=== PATIENT | male | born 1950 | race Caucasian/White ===

== ENCOUNTER 2020-05-19 15:39 | Inpatient (IN) | payer MEDICARE, OTHER ==
[~2020-05-19] VITALS: Ht 180.3 cm; Wt 103.4 kg
--- NOTE | 2020-05-19 15:42 | NUR ---
PT BIBRA60 FROM THE STREETS, CALLED 911 C/O SHORTNESS OF BREATH WHILE WALKING UNDER THE SUN. PT STATES HX OF COPD. SMOKER. PT WAS ON O2@#2L./MIN UPON ARRIVAL. PLACED ON MONITOR. ALBERT BLAKE.
[2020-05-19] MEDS ORDERED: Magnesium 1GM/D5W 100ML PREMIX 200 ML IV ONE ×2 (15:46→16:03)
--- NOTE | 2020-05-19 15:47 | NUR ---
DR SOTO AT BEDSIDE FOR EVAL.
[2020-05-19] MEDS ORDERED: ALBUTEROL SULFATE INH 18 GM HFA.AER.AD IH PRN (16:00)
[2020-05-19] MEDS ORDERED: methylPREDNISolone SOD SUCC 125 MG/2ML VIAL IV ONE (16:00)
--- NOTE | 2020-05-19 16:00 | NUR ---
IV LINE STARTEED BLOOD DRAWN AND SENT TO LAB.
[2020-05-19] MEDS ORDERED: methylPREDNISolone SOD SUCC 125 MG/2ML VIAL ONE (16:03)
[2020-05-19 16:14] LABS: BASOPHILS % (AUTO) 0.8 % (0.0-2.0); EOSINOPHILS % (AUTO) 2.5 % (0.0-6.0); HEMATOCRIT 37 % (39-51); HEMOGLOBIN 12.2 g/dL (13.5-17.5); LYMPHOCYTES % (AUTO) 19.4 % (20.0-44.0); MEAN CORPUSCULAR HGB CONC 33 g/dl (31.0-36.0); MEAN CORPUSCULAR VOLUME 87 fL (80-96); MONOCYTES # (AUTO) 0.4 /CMM (0.1-1.30); NEUTROPHILS # (AUTO) 3.6 /CMM (1.8-8.9); NEUTROPHILS % (AUTO) 69.3 % (43.0-81.0); PLATELET COUNT (AUTO) 226 /CMM (150-450); RED BLOOD CELL COUNT(AUTO) 4.22 MIL/uL (4.5-6.0); WHITE BLOOD COUNT (AUTO) 5.2 K/uL (4.3-11.0)
[2020-05-19 16:17] LABS: CALCIUM, SERUM 8.4 mg/dL (8.5-10.1); CARBON DIOXIDE 31 mmol/L (21-32); CHLORIDE 96 mmol/L (98-107); CREATININE 0.7 mg/dL (0.6-1.3); GLUCOSE 109 mg/dL (74-106); POTASSIUM 3.8 mmol/L (3.5-5.1); SODIUM SERUM 133 mmol/L (136-145); UREA NITROGEN, BLOOD 13 mg/dL (7-18)
[2020-05-19 16:30] LABS: B-TYPE NATRIURETIC PEPTIDE 1586 PG/ML (0-125)
--- NOTE | 2020-05-19 17:05 | NUR ---
MOVE SHEET SUBMITTED TO ADMITTING AND CALLED FOR TELE BED
--- NOTE | 2020-05-19 17:18 | NUR ---
[facility] CALLED ITS [facility].
[2020-05-19] MEDS ORDERED: DILTIAZEM HCL IV 125 MG in IV D5W 100 ML IV ONE (17:30)
[2020-05-19] MEDS ORDERED: LEVOFLOXACIN 750 MG /D5W 150ML PIGGYBACK IV ONE (17:30)
[2020-05-19] MEDS ORDERED: DILTIAZEM HCL 25 MG IV IVP ONE (17:30)
[2020-05-19] MEDS ORDERED: FUROSEMIDE 40 MG/4 ML VIAL IV ONE (17:30)
[2020-05-19] MEDS ORDERED: ALBUTEROL FS 2.5 MG/3 ML VIAL.NEB NEB ONE (17:30)
[2020-05-19] MEDS ORDERED: IPRATROPIUM NEB FS 0.5 MG/2.5 ML AMPUL.NEB NEB ONE (17:30)
--- NOTE | 2020-05-19 17:41 | NUR ---
GOT BED 106 READY AT 1800
[2020-05-19] MEDS ORDERED: FUROSEMIDE 40 MG/4 ML VIAL ONE (17:45)
[2020-05-19] MEDS ORDERED: LEVOFLOXACIN 750 MG /D5W 150ML 150 ML IV ONE (17:46)
[2020-05-19] MEDS ORDERED: DILTIAZEM HCL 25 MG IV ONE ×2 (17:46→21:31)
[2020-05-19] MEDS ORDERED: ALBUTEROL FS 2.5 MG/0.5 ML VIAL.NEB ONE (17:47)
[2020-05-19] MEDS ORDERED: IPRATROPIUM NEB FS 0.5 MG/2.5 ML AMPUL.NEB ONE (17:47)
[2020-05-19] MEDS ORDERED: ONDANSETRON HCL/PF 4 MG/2 ML VIAL IVP PRN (18:00)
[2020-05-19] MEDS ORDERED: Z GUARD REMEDY 2 OZ OINT TP PRN (18:00)
[2020-05-19] MEDS ORDERED: ZOLPIDEM TARTRATE 5 MG TABLET PO PRN (18:00)
[2020-05-19] MEDS ORDERED: MAG HYDROX/AL HYDROX/SIMETH 30 ML UDC PO PRN (18:00)
--- NOTE | 2020-05-19 18:15 | NUR ---
REPORT GIVEN TO ROSALEE GAMEZ. AWAITIONG TRANSFER TO FLOOR.
--- NOTE | 2020-05-19 18:27 | NUR ---
DR MADE AWARE OF CURRENT VITALS. STATES NO NEED FOR CARDIZEM DRIP AT THIS TIME.
[2020-05-19 18:55] LABS: C-REACTIVE PROTEIN 3.1 mg/dL (0.0-0.9)
[2020-05-19] MEDS ORDERED: DILTIAZEM HCL 50 MG IV IV PRN (19:00)
--- NOTE | 2020-05-19 19:16 | NUR ---
RN NOTE Patient arrived on unit at 1905. Report given to Jian RN at bedside for admitting.
--- NOTE | 2020-05-19 19:20 | NUR ---
1919 PATIENT REFUSES TO GIVE UP HIS STAFF SCIENTIST AND CIGARETTES TO NURSES FOR SAFE KEEP AND VERBALIZED THAT HE WOULD LEAVE THE HOSPITAL IF NOT ALLOWED TO SMOKE. EXPLAINED TO HIM THE RISKS OF HIM SMOKING AND LEAVING THE HOSPITAL AGAINST MEDICAL ADVICE TO NO AVAIL. DR. GARCIA MADE AWARE OF PATIENT'S BEHAVIOR WITH ORDER TO GIVE HIM NICODERM PATCH AND ATIVAN ORDERED. ORDER NOTED AND CARRIED OUT. NEW ORDER EXPLAINED TO PATIENT AND HE UNDERSTOOD. HE ALSO AGREED TO BE SWABBED TO COVID AND BE MOVED TO ISOLATION ROOM 106. CALL LIGHT PLACED WITHIN REACH AND INSTRUCTED PATIENT TO CALL FOR ASSISTANCE. PATIENT BEING MONITORED CLOSELY.
[2020-05-19 20:00] VITALS: BP 142/88
[2020-05-19] MEDS ORDERED: ENOXAPARIN SODIUM 40 MG/0.4 ML DISP.SYRIN SQ SCH (20:00)
[2020-05-19] MEDS: NICOTINE PATCH (21MG) 21 MG PATCH.TD24 TD SCH (20:29)
[2020-05-19] MEDS: methylPREDNISolone SOD SUCC 40 MG/ML VIAL IV SCH (23:04)
[2020-05-20] VITALS: BP 135/76
[2020-05-20] MEDS: LORAZEPAM 0.5 MG TABLET PO PRN (00:29)
--- NOTE | 2020-05-20 00:46 | NUR ---
RN NOTE ENDORSED TO VERA FREEMAN FOR CONTINUATION OF CARE.
--- NOTE | 2020-05-20 01:28 | NUR ---
dina rn notes received pts report to eliud for continuity of care , pts in bed still awake , c/o he cant sleep , ambien 5 mg po given as ordered.will continue to monitor pts.
[2020-05-20 04:00] VITALS: BP 138/82
[2020-05-20] MEDS: methylPREDNISolone SOD SUCC 40 MG/ML VIAL IV SCH ×3 (05:55→17:10)
--- NOTE | 2020-05-20 06:08 | NUR ---
dina rn notes Pts remains on 5liters of o2 via simple mask sating 98% lung sound wheezing, pts noted taking out the o2 most of thetime encourage pts not to disconnect his o2 verbalizes understanding . due meds at am given as ordered , v/s stable afebrile no sob no distress noted ,will endorse to rn day shift for continuity of care.pts still pending covid result. will continue to monitor pts.
[2020-05-20 06:46] LABS: BASOPHILS % (AUTO) 0.1 % (0.0-2.0); EOSINOPHILS % (AUTO) 0.1 % (0.0-6.0); HEMATOCRIT 39 % (39-51); HEMOGLOBIN 12.8 g/dL (13.5-17.5); LYMPHOCYTES # (AUTO) 0.6 /CMM (0.8-4.8); LYMPHOCYTES % (AUTO) 17.5 % (20.0-44.0); MEAN CORPUSCULAR HGB CONC 33 g/dl (31.0-36.0); MEAN CORPUSCULAR VOLUME 87 fL (80-96); MONOCYTES # (AUTO) 0.1 /CMM (0.1-1.30); MONOCYTES % (AUTO) 1.6 % (2.0-12.0); NEUTROPHILS # (AUTO) 2.8 /CMM (1.8-8.9); NEUTROPHILS % (AUTO) 80.7 % (43.0-81.0); PLATELET COUNT (AUTO) 182 /CMM (150-450); RED BLOOD CELL COUNT(AUTO) 4.44 MIL/uL (4.5-6.0); WHITE BLOOD COUNT (AUTO) 3.5 K/uL (4.3-11.0)
[2020-05-20 06:57] LABS: CALCIUM, SERUM 8.3 mg/dL (8.5-10.1); CREATININE 0.6 mg/dL (0.6-1.3); PHOSPHORUS 4.3 mg/dL (2.5-4.9); POTASSIUM 4.2 mmol/L (3.5-5.1)
--- NOTE | 2020-05-20 07:00 | NUR ---
RN FLORENTIN PATIENT ASLEEP BUT EASILY WOKEN , A/O X4 COOPERATIVE WITH CARE. ABLE TO FOLLOW COMMANDS. PATIENT ON EXTERNAL MONITOR 110'S ST, ON SIMPLE MASK 5 L SATURATION > 92 %. PATIENT IS AMBULATORY NOTIFIED PATIENT TO CALL FOR ASSISTANCE FOR PATIENT SAFETY. RFA 20 # INTACT, FLUSHED, NO SIGNS OF INFILTRATION, PATIENT IS ON ISOLATION FOR RULE OUT COVID. PATIENT IS ALLERGIC TO ASPIRIN BED LOCKED LOWEST POSITION CALL LIGHT WITH IN REACH ALL SAFETY MEASURES IMPLEMENTED PER HOSPITAL POLICY.
[2020-05-20 07:15] LABS: MAGNESIUM 1.2 mg/dL (1.8-2.4)
--- NOTE | 2020-05-20 07:20 | NUR ---
SOCIAL SCIENCE PROFESSOR LABORATORY REPORT MAGNESIUM 1.2 REPORT TO
[2020-05-20 08:00] VITALS: BP 132/83
[2020-05-20] MEDS ORDERED: FUROSEMIDE 40 MG/4 ML VIAL IV SCH (09:00)
[2020-05-20] MEDS ORDERED: AMIODARONE 150 MG in IV D5W 100 ML IV ONE (09:30)
[2020-05-20] MEDS ORDERED: D5W IV PRN (09:30)
[2020-05-20] MEDS ORDERED: AMIODARONE IV PRN (09:30)
[2020-05-20] MEDS: FUROSEMIDE 40 MG/4 ML VIAL IV SCH ×3 (09:30→17:11)
[2020-05-20] MEDS ORDERED: IBUP-51 PO (09:57)
[2020-05-20] MEDS ORDERED: LEVOFLOXACIN 500 MG /D5W 100ML 500 MG in PREMIX 1 EA IV SCH ×2 (10:00→18:00)
[2020-05-20] MEDS: Magnesium 1GM/D5W 100ML PREMIX 100 ML IV SCH ×2 (10:36→12:13)
[2020-05-20] MEDS: APIXABAN 5 MG TABLET PO SCH ×2 (10:52→17:12)
[2020-05-20 12:00] VITALS: BP 120/74
--- NOTE | 2020-05-20 12:14 | NUR ---
GRANITE WORKER GAVE LASIK 0900 . PRESCRIBE 0930/ 5200 / 1630. CALLED CONFIRMATION ABOUT ANOTHER LASIK DOSE. SAID TO NON ADMIN FIRST DOES AND CONTINUE
[2020-05-20] MEDS: IPRATROPIUM/ALBUTEROL INHALER IH SCH ×2 (13:52→18:57)
[2020-05-20] MEDS: CEFTRIAXONE 1 G in IV D5W 50 ML IV SCH (14:01)
[2020-05-20] MEDS: AMIODARONE 450 MG in IV D5W 250 ML IV PRN (14:34)
[2020-05-20 16:00] VITALS: BP 141/63
--- NOTE | 2020-05-20 18:53 | NUR ---
KNEE BOLTER 1 PATIENT A/OX 4 NO SIGNIFICANT CHANGE IN PATINT CONDITION NO SOB, NO PAIN, NO ACUTE RESPIRATORY DISTRESS. PATIENT COOPERTIVE WITH CARE. ALL MEDICATIONS GIVEN NEW IV SITE LFA 20 WITH CARDRONE RUNNING AT 33.33 TILL 2022 AND CHANGE TO 16.6 FOR 16 HRS AFTER. BED LOCKED LOWEST POSITION CALL LIGHT WITH IN REACH ALL SAFETY MEASURE IMPLEMENTED PER HOSPITAL POLICY
[2020-05-20 20:00] VITALS: BP 147/69
--- NOTE | 2020-05-20 20:00 | NUR ---
RN OPENING NOTE PT RECEIVED IN BED RESTING COMFORTABLY. PT IS A/A/OX 4. THERE IS NO S/S OF DISTRESS .PT SATING 93% ON RA. PT HAS UNLABORED BREATHING. TELE MONITOR SHOWING SR AND HR IN 90s PT HAS L FA 20 G IV AMIODARONE RUNNING AT 16.6. SAFETY MEASURES IN PLACE BED LOCKED, AT LOWEST POSITION ,CALL LIGHT WITH IN REACH SIDE RAILS UPx2. WILL CONTINUE TO MONITOR.
[2020-05-20] MEDS: NICOTINE PATCH (21MG) 21 MG PATCH.TD24 TD SCH (20:55)
[2020-05-21] VITALS: BP 116/70
[2020-05-21] MEDS: LORAZEPAM 0.5 MG TABLET PO PRN (00:15)
[2020-05-21] MEDS: methylPREDNISolone SOD SUCC 40 MG/ML VIAL IV SCH ×5 (00:15→23:52)
[2020-05-21] MEDS: IPRATROPIUM/ALBUTEROL INHALER IH SCH ×4 (01:07→18:56)
[2020-05-21] MEDS: AMIODARONE 450 MG in IV D5W 250 ML IV PRN (02:28)
[2020-05-21 04:00] VITALS: BP 124/80
--- NOTE | 2020-05-21 06:41 | NUR ---
RN CLOSING NOTE PT REMAINS STABLE DURING MY SHIFT. NO ACUTE CHANGES. WILL ENDORSE TO INCOMING NURSE FOR DEMIAN.
[2020-05-21 07:04] LABS: BASOPHILS % (AUTO) 0.1 % (0.0-2.0); HEMATOCRIT 38 % (39-51); HEMOGLOBIN 12.7 g/dL (13.5-17.5); LYMPHOCYTES # (AUTO) 0.6 /CMM (0.8-4.8); LYMPHOCYTES % (AUTO) 6.4 % (20.0-44.0); MEAN CORPUSCULAR HGB CONC 33 g/dl (31.0-36.0); MEAN CORPUSCULAR VOLUME 87 fL (80-96); MONOCYTES # (AUTO) 0.3 /CMM (0.1-1.30); MONOCYTES % (AUTO) 3.2 % (2.0-12.0); NEUTROPHILS # (AUTO) 9.1 /CMM (1.8-8.9); NEUTROPHILS % (AUTO) 90.3 % (43.0-81.0); PLATELET COUNT (AUTO) 213 /CMM (150-450); RED BLOOD CELL COUNT(AUTO) 4.41 MIL/uL (4.5-6.0)
[2020-05-21 07:09] LABS: ALANINE AMINOTRANSFERASE 36 U/L (12-78); ALBUMIN 3.5 g/dL (3.4-5.0); ALKALINE PHOSPHATASE 60 U/L (46-116); ASPARTATE AMINOTRANSFERASE 28 U/L (15-37); BILIRUBIN,TOTAL 0.4 mg/dL (0.2-1.0); CALCIUM, SERUM 8.7 mg/dL (8.5-10.1); CARBON DIOXIDE 35 mmol/L (21-32); CHLORIDE 86 mmol/L (98-107); CREATININE 0.8 mg/dL (0.6-1.3); GLUCOSE 167 mg/dL (74-106); MAGNESIUM 1.4 mg/dL (1.8-2.4); PHOSPHORUS 3.5 mg/dL (2.5-4.9); POTASSIUM 3.6 mmol/L (3.5-5.1); SODIUM SERUM 125 mmol/L (136-145); UREA NITROGEN, BLOOD 23 mg/dL (7-18)
--- NOTE | 2020-05-21 07:15 | NUR ---
SOCIAL WORKER CLINICAL NOTES PATIENT IN BED A/OX4 AWAKE SITTING IN BED. HR 112. ON DROPLET ISOLATION FOR COVID19 PENDING. IV SITE PATENT AND PATIENT USES URINAL ABLE TO AMBULATE. REMOVES THE O2 MASK AND SATURATING 89% IN ROOM AIR. CALL LIGHT WITHIN REACH BED AT THE LOWEST POSITION LOCKED. WILL CONTINUE TO MONITOR THE PATIENT.
[2020-05-21 07:35] LABS: OSMOLALITY,URINE 416 mOS/kg (340-1090); URINE SODIUM, RANDOM 81 mmol/l (40-220)
[2020-05-21 08:00] VITALS: BP 120/74
[2020-05-21 08:05] LABS: THYROID STIMULATING HORMONE 0.543 uIU/mL (0.358-3.74); URIC ACID 4.4 mg/dL (2.6-7.2)
[2020-05-21] MEDS: APIXABAN 5 MG TABLET PO SCH ×2 (08:41→17:37)
[2020-05-21] MEDS: Magnesium 1GM/D5W 100ML PREMIX 100 ML IV SCH ×4 (10:07→14:17)
--- NOTE | 2020-05-21 10:41 | NUR ---
VAMPER NOTES PATIENT BROTHER CAME TO THE HOSPITAL LOBBY AND RECEIVED PATIENT`S DEBIT CARD PER PATIENT REQUEST.
[2020-05-21] MEDS: FUROSEMIDE 100 MG/10 ML VIAL IV SCH ×3 (10:45→17:37)
[2020-05-21] MEDS: DILTIAZEM HCL CD 240 MG PO SCH (10:47)
[2020-05-21] MEDS: POTASSIUM CHLORIDE 20 MEQ TAB.PRT.SR PO SCH ×3 (10:48→12:00)
[2020-05-21 12:00] VITALS: BP 148/77
[2020-05-21] MEDS: DIGOXIN INJ 0.5 MG/2 ML AMPUL IV SCH ×4 (12:06→23:53)
--- NOTE | 2020-05-21 12:21 | NUR ---
MAIL PROCESSING CLERK NOTES LASIX OBTAINED FROM [facility] AT WRONG TIME AND NOT ADMINISTRATED TO PATIENT , WASTED IN WASTE BIN.
--- NOTE | 2020-05-21 13:10 | NUR ---
RECOVERY ROOM RN NOTES UNABLE TO OBTAIN KDUR FROM [facility]. CALLED PHARMACY AND ASKED TO REDO THE ORDER FOR THE LAST DOSE. WILL ADMINISTER AT 1400.
[2020-05-21] MEDS: CEFTRIAXONE 1 G in IV D5W 50 ML IV SCH (13:14)
[2020-05-21] MEDS ORDERED: POTASSIUM CHLORIDE 20 MEQ TAB.PRT.SR PO SCH (14:00)
[2020-05-21 16:00] VITALS: BP 138/72
--- NOTE | 2020-05-21 18:56 | NUR ---
INVERTER AND CLIPPER NOTES PATIENT IN BED NO SOB OR DISCOMFORT NOTED AT THIS TIME. ALL NEEDS ATTENDED MED ADMINISTRATED. REPORT GIVEN TO POLICE GUARD NURSE FOR DEMIAN.
--- NOTE | 2020-05-21 19:52 | NUR ---
RN OPENING NOTE PT RECEIVED IN BED RESTING COMFORTABLY. PT IS A/A/OX 4. THERE IS NO S/S OF DISTRESS , NO SOB.PT SATING 91% ON RA. PT HAS UNLABORED BREATHING. TELE MONITOR SHOWING SR AND HR IN 90s PT HAS L FA 20 G IV S/L. SAFETY MEASURES IN PLACE BED LOCKED, AT LOWEST POSITION ,CALL LIGHT WITH IN REACH SIDE RAILS UPx2. WILL CONTINUE TO MONITOR.
[2020-05-21] MEDS: MAGNESIUM HYDROXIDE 30 ML UDC PO PRN (19:58)
[2020-05-21 20:00] VITALS: BP 144/79
[2020-05-21] MEDS: NICOTINE PATCH (21MG) 21 MG PATCH.TD24 TD SCH (20:27)
[2020-05-21] MEDS: ACETAMINOPHEN 325 MG TABLET PO PRN (23:22)
[2020-05-22] VITALS (9 sets, daily range): BP systolic 123–155; BP diastolic 68–92
[2020-05-22] MEDS: HYDROCODONE/APAP 5/325MG 1 EACH TABLET PO PRN ×2 (00:48→08:25)
[2020-05-22] MEDS: IPRATROPIUM/ALBUTEROL INHALER IH SCH ×4 (01:01→19:51)
[2020-05-22] MEDS: methylPREDNISolone SOD SUCC 40 MG/ML VIAL IV SCH ×3 (06:01→17:04)
--- NOTE | 2020-05-22 06:31 | NUR ---
RN CLOSING NOTE PT REMAINS STABLE DURING MY SHIFT. VSS. WILL ENDORSE TO INCOMING NURSE FOR DEMIAN.
--- NOTE | 2020-05-22 07:53 | NUR ---
HOSPITAL INSURANCE REPRESENTATIVE OPENING NOTES RECEIVED PT ON BED, ASLEEP YET EASILY AROUSABLE, A/O 4, RESPONSIVE TO STIMULI. RESPIRATION EVEN AND NON LABORED, NOT IN ACUTE RESPIRATORY DISTRESS, ON O2 AT 3LPM VIA N/C SATING 92%. ABD SOFT AND NON DISTENDED WITH ACTIVE BOWEL SOUNDS, WITH URINAL, ADVISED THAT STOOL IS NEEDED, TO CALL NURSE IF BM DONE. SKIN WARM TO TOUCH AND DRY, BLE +1 PITTING EDEMA, INSTRUCTED TO ELEVATE LEGS WHEN LYING ON BACK, PT UNDERSTOOD. PT DENIES PAIN AND DISCOMFORT. IV SITE AT LFA #20 H/L. BED IN LOW LOCKED POSITION, SR X2 UP FOR SAFETY, CALL LIGHT WITHIN REACH. PT ON FLUID RESTRICTION 800 ML/DAY, COORDINATED WITH BEHAVIOR SPECIALIST. COVID 19 NEGATIVE. TELE MONITOR SHOWS CONTROLLED AFIB WITH PVS 98. WILL CONTINUE PLAN OF CARE.
[2020-05-22 08:02] LABS: BASOPHILS % (AUTO) 0.1 % (0.0-2.0); HEMATOCRIT 40 % (39-51); HEMOGLOBIN 13.3 g/dL (13.5-17.5); LYMPHOCYTES # (AUTO) 0.6 /CMM (0.8-4.8); LYMPHOCYTES % (AUTO) 6.2 % (20.0-44.0); MEAN CORPUSCULAR HGB CONC 34 g/dl (31.0-36.0); MEAN CORPUSCULAR VOLUME 86 fL (80-96); MONOCYTES # (AUTO) 0.5 /CMM (0.1-1.30); MONOCYTES % (AUTO) 4.6 % (2.0-12.0); NEUTROPHILS # (AUTO) 9.2 /CMM (1.8-8.9); NEUTROPHILS % (AUTO) 89.1 % (43.0-81.0); PLATELET COUNT (AUTO) 252 /CMM (150-450); RED BLOOD CELL COUNT(AUTO) 4.61 MIL/uL (4.5-6.0); WHITE BLOOD COUNT (AUTO) 10.3 K/uL (4.3-11.0)
[2020-05-22] MEDS: DILTIAZEM HCL CD 240 MG PO SCH (08:20)
[2020-05-22] MEDS: APIXABAN 5 MG TABLET PO SCH ×2 (08:20→17:04)
[2020-05-22 08:22] LABS: ALBUMIN 3.6 g/dL (3.4-5.0); BILIRUBIN,TOTAL 0.6 mg/dL (0.2-1.0); CALCIUM, SERUM 8.4 mg/dL (8.5-10.1); CREATININE 0.8 mg/dL (0.6-1.3); MAGNESIUM 1.9 mg/dL (1.8-2.4); PHOSPHORUS 4.5 mg/dL (2.5-4.9); POTASSIUM 3.7 mmol/L (3.5-5.1); TOTAL PROTEIN, SERUM 8.1 g/dL (6.4-8.2)
[2020-05-22] MEDS: ACETAMINOPHEN 325 MG TABLET PO PRN ×2 (11:26→20:29)
--- NOTE | 2020-05-22 12:20 | NUR ---
BENCH MOLDER NOTES PT IV SITE AT LEFT FA #20 LEAKING, PATENT IN FLUSHING, NO BACK FLOW. ATTEMPTED TO RE-INSERT 3X WITH CHARGE NURSE CHARLENE, FAILED. PAGED DR. GARCIA FOR POSSIBLE MIDLINE. PROSTHETIC ASSISTANT NOTIFIED. WAITING FOR RESPONSE.
[2020-05-22] MEDS: DIGOXIN 0.25 MG TABLET PO SCH (12:24)
--- NOTE | 2020-05-22 12:34 | NUR ---
OK FOR MIDLINE.AWAITS MIDLINE NURSE.
--- NOTE | 2020-05-22 13:25 | NUR ---
BUILDING SPECIALIST NOTES CEFTRIAXONE IV UNABLE TO ADMINISTER YET AT THIS TIME, WAITING FOR MIDLINE INSERTION TO ADMINISTER THE MEDICATION. LFA IV SITE LEAKING AND DISCOMFORT WHEN FLUSHING PER PT. AWARE
--- NOTE | 2020-05-22 15:15 | NUR ---
PEST CONTROLLER NOTES PT WHEELED OUT TO CT SCAN FOR CHEST WITH CONTRAST BY QUE
[2020-05-22] MEDS: CEFTRIAXONE 1 G in IV D5W 50 ML IV SCH (15:19)
[2020-05-22] MEDS ORDERED: IOHEXOL-300 100 ML VIAL IV ONE (15:27)
[2020-05-22] MEDS ORDERED: CT SWABBABLE VALVE TRANS SET 1 EA INFUS.SET MC ONE (15:27)
[2020-05-22] MEDS ORDERED: IV NS 0.9% 250 ML IV ONE (15:28)
--- NOTE | 2020-05-22 15:30 | NUR ---
DOCTOR CHIROPRACTIC NOTES PT CAME BACK FROM CT, NO DEMIAN NOTED, CONTINUE CEFTRIAXONE IV ORDERED. CONTINUE POC
--- NOTE | 2020-05-22 16:40 | NUR ---
THEOLOGY TEACHER NOTES RT MADE AWARE WITH EKG ORDER. TO COME BACK STATED
--- NOTE | 2020-05-22 18:48 | NUR ---
TENTER FRAME BACK TENDER CLOSING NOTES PT AA/OX4, WITH EPISODES OF FORGETFULNESS AND CONFUSION. ON O2 AT 3LPM VIA N/C SATING 88-92%, HOB ELEVATED. NO C/O OF SOB, USE OF ACCESSORY MUSCLES. ABD SOFT AND NON DISTENDED, +ACTIVE BOWEL SOUNDS, NO BM TODAY, PT STATED HE FEELS LIKE HE'LL DO #2 AND WILL WAIT FOR IT, REFUSED STOOL SOFTENER MEDICATION AND WILL GET IT FROM THE NIGHT IF DIDN'T GO IN AM. DENIES PAIN AND DISCOMFORT. SKIN WARM TO TOUCH AND DRY, NO NEW OPEN SKIN BREAKDOWN. IV SITE AT LFA #20 PATENT IN FLUSHING, LEAKING AND LEFT UPPER MIDLINE #18. TELE MONITOR SHOWS AFIB WITH PVC 88. ALL CONCERNS ATTENDED. BED IN LOW LOCKED POSITION, SRX2 UP FOR SAFETY, CALL LIGHT WITHIN REACH. ENDORSED PT CARE TO NEXT SHIFT.
--- NOTE | 2020-05-22 19:15 | NUR ---
RN OPENING NOTES: RECEIVED PT A/OX4, PATIENT A LITTLE CONFUSED BUT VERY COOPERATIVE AND RESPONSIVE. PATIENT IN BED RESTING COMFORTABLY. PATIENT IN NO S/SX OF ACUTE DISTRESS AT THIS TIME. NO SOB NOTED. PATIENT'S BREATHING IS EVEN AND UNLABORED. PATIENT IS ON 3L OF OXYGEN VIA NC ; TOLERATING WELL. PATIENT ON MONITORING READING AFIB HR IS @ 100S. NOTED IV SITE ON L FA #20 AND L UA MIDLINE #18; PATENT IN INTACT,NO S/S OF INFECTION OR INFILTRATION. PATIENT NOTED TO HAVE BLE ON FEET. PATIENT IS AMBULATORY AND HAS URINAL ON THE BEDSIDE. SAFETY MEASURES HAVE BEEN PROVIDED AND IMPLEMENTED. PATIENT BED ALARM IS ON. HEAD OF BED ELEVATED. BED IS LOCKED, IN LOWEST POSITION AND SIDE RAILS UP. CALL LIGHT WITHIN REACH OF THE PATIENT. PROPER PRECAUTIONS IN PLACE. WILL CONTINUE TO MONITOR AND REASSESS FOR ANY CHANGES.
[2020-05-22] MEDS: NICOTINE PATCH (21MG) 21 MG PATCH.TD24 TD SCH (20:16)
[2020-05-22] MEDS: DEMECLOCYCLINE HCL 150 MG TABLET PO SCH (20:29)
[2020-05-23] VITALS (8 sets, daily range): BP systolic 121–140; BP diastolic 62–76
[2020-05-23] MEDS: methylPREDNISolone SOD SUCC 40 MG/ML VIAL IV SCH ×2 (00:21→06:22)
[2020-05-23] MEDS: IPRATROPIUM/ALBUTEROL INHALER IH SCH ×4 (01:00→19:44)
--- NOTE | 2020-05-23 06:18 | NUR ---
RN CLOSING NOTE: PATIENT REMAINS IN ROOM. NO SIGNS OF RESPIRATORY DISTRESS. SAFETY MEASURES IMPLEMENTED, BED IN LOWEST POSITION, LOCKED, SIDE RAILS UP, CALL LIGHT WITHIN REACH. ALL NEEDS AND ORDERS ADDRESSED DURING THE SHIFT. ALL DUE MEDS GIVEN ORDERED & SCHEDULED ; PATIENT TOLERATED WELL.PATIENT KEPT CLEAN AND COMFORTABLE WITHIN THE SHIFT. ENDORSED TO INCOMING SHIFT RN FOR CONTINUITY OF CARE.
[2020-05-23 07:43] LABS: CALCIUM, SERUM 8.3 mg/dL (8.5-10.1); CREATININE 0.6 mg/dL (0.6-1.3); MAGNESIUM 1.8 mg/dL (1.8-2.4); PHOSPHORUS 3.4 mg/dL (2.5-4.9); POTASSIUM 4.5 mmol/L (3.5-5.1)
--- NOTE | 2020-05-23 07:52 | NUR ---
RN OPENING NOTE PATIENT RECEIVED IN BED RESTING. PT IS A/A/O X4. PT IS ON 2 L O2 VIA NC SATING 97%. PT IS AFIB .PT IS AMBULATORY WITH CANE. PATIENT HAS URINAL. YELLOW, URINE. PT HAS L AC 18 G AND R AC 18 MIDLINE G S/L. SAFETY MEASURES IN PLACE BED AT LOWEST POSITION AND LOCKED, CALL LIGHT WITH IN REACH, SIDE RAILS UPX2, BED ALARM IS ON. WILL CONTINUE TO MONITOR.
[2020-05-23 08:00] LABS: URIC ACID 4.6 mg/dL (2.6-7.2)
[2020-05-23] MEDS: DEMECLOCYCLINE HCL 150 MG TABLET PO SCH ×2 (08:36→20:22)
[2020-05-23] MEDS: DILTIAZEM HCL CD 240 MG PO SCH (08:37)
[2020-05-23] MEDS: APIXABAN 5 MG TABLET PO SCH ×2 (08:40→16:36)
[2020-05-23] MEDS: HYDROCODONE/APAP 5/325MG 1 EACH TABLET PO PRN (08:41)
[2020-05-23] MEDS: CEFTRIAXONE 1 G in IV D5W 50 ML IV SCH (13:12)
[2020-05-23] MEDS: DIGOXIN 0.25 MG TABLET PO SCH (13:53)
--- NOTE | 2020-05-23 18:26 | NUR ---
FLORENTIN RN NOTES PT DOESNT WANT TO GIVE HIS CELL PHONE TO THE BROTHER.
--- NOTE | 2020-05-23 18:26 | NUR ---
FLORENTIN RN NOTES HOLD ELIQUIS BUT HE CAN CONTINUE TO EAT. WILL HAVE PROCEDURE IN 2 DAYS.CONSENT FORMED SIGNED
--- NOTE | 2020-05-23 18:27 | NUR ---
RN CLOSING NOTE PATIENT RESTING IN BED RESTING. PT IS A/A/O X4. PT IS ON 2 L O2 VIA NC SATING 91%. PT IS AFIB .PT IS AMBULATORY WITH CANE. PATIENT HAS URINAL. YELLOW, URINE. PT HAS L AC 18 G AND R AC 18 MIDLINE G S/L. SAFETY MEASURES IN PLACE BED AT LOWEST POSITION AND LOCKED, CALL LIGHT WITH IN REACH, SIDE RAILS UPX2, BED ALARM IS ON. WILL ENDORSE TO WOODEN FURNITURE POLISHER FOR DEMIAN.
--- NOTE | 2020-05-23 19:15 | NUR ---
RN OPENING NOTES: RECEIVED PT A/OX4, PATIENT COOPERATIVE AND RESPONSIVE. PATIENT IN BED RESTING COMFORTABLY. PATIENT IN NO S/SX OF ACUTE DISTRESS AT THIS TIME. NO SOB NOTED. PATIENT'S BREATHING IS EVEN AND UNLABORED. PATIENT IS ON 3L OF OXYGEN VIA NC ; TOLERATING WELL. PATIENT ON MONITORING READING AFIB HR IS @ 100. NOTED IV SITE ON L UA MIDLINE #18; PATENT IN INTACT,NO S/S OF INFECTION OR INFILTRATION. PATIENT NOTED TO HAVE BLE ON FEET. PATIENT IS AMBULATORY USING A CANE AND HAS URINAL @ BEDSIDE. PT ON CARDIAC DIET. SAFETY MEASURES HAVE BEEN PROVIDED AND IMPLEMENTED. PATIENT BED ALARM IS ON. HEAD OF BED ELEVATED. BED IS LOCKED, IN LOWEST POSITION AND SIDE RAILS UP. CALL LIGHT WITHIN REACH OF THE PATIENT. PROPER PRECAUTIONS IN PLACE. WILL CONTINUE TO MONITOR AND REASSESS FOR ANY CHANGES.
[2020-05-23] MEDS: NICOTINE PATCH (21MG) 21 MG PATCH.TD24 TD SCH (20:19)
[2020-05-24] VITALS (9 sets, daily range): BP systolic 115–155; BP diastolic 59–93
[2020-05-24] MEDS: IPRATROPIUM/ALBUTEROL INHALER IH SCH ×4 (00:11→20:14)
--- NOTE | 2020-05-24 07:30 | NUR ---
RN NOTE: Received patient sitting by edge of bed. Awake, alert and oriented 4. Appears relaxed and comfortable. Currently on room air and tolerating well. No SOB and no resp. distress noted on patient. Saturation noted @ >92%. No pain noted nor reported by patient. Able to make needs known. IV site clean, dry, patent and intact. Reported to able ambulatory without assist and with hx of A. fib. call light in reach. Bed locked, low and at semi-malone's position. Side rails up x2. Safety ensured and observed. Will continue to monitor.
[2020-05-24] MEDS: predniSONE 20 MG TABLET PO SCH (08:30)
[2020-05-24] MEDS: DILTIAZEM HCL CD 240 MG PO SCH (08:31)
[2020-05-24] MEDS: DEMECLOCYCLINE HCL 150 MG TABLET PO SCH ×2 (08:33→20:11)
[2020-05-24] MEDS: APIXABAN 5 MG TABLET PO SCH ×2 (08:36→16:50)
[2020-05-24] MEDS: HYDROCODONE/APAP 5/325MG 1 EACH TABLET PO PRN ×2 (08:41→19:34)
--- NOTE | 2020-05-24 09:15 | NUR ---
RN note: Transferred to room 206 with VERA Hui receiving report. Arrived in stable condition. All belongings with patient. Endorsed to RN about patient asking for something to help with Bowel Movement, she will inform MD.
--- NOTE | 2020-05-24 09:20 | NUR ---
M/S RN NOTES PATIENT RECEIVED ALERT AND ORIENTED X4, NO RESPIRATORY DISTRESS, NO C/O PAIN AT THIS TIME. REPORT GIVEN FROM VERA YANG. PATIENT'S SKIN WARM TO TOUCH, IV ACCESS SITE INTACT AND PATENT. PATIENT'S NEEDS ATTENDED, BED ON LOWEST LOCKED POSITION, CALL LIGHT WITHIN REACH. WILL CONTINUE TO MONITOR. Addendum: 05/24/20 at 1554 by JACK GRIGGS RN ERROR ON ABOVE NOTES, NO IV ACCESS WHEN RECEIVED.
[2020-05-24] MEDS: MAGNESIUM HYDROXIDE 30 ML UDC PO PRN (09:42)
--- NOTE | 2020-05-24 10:35 | NUR ---
SW CONSULT: Structural Steel Shop Supervisor conducted a group social worker consult to address the pt's homeless status, assess pt's discharge plan, and offer resources. Pt reported he is currently homeless and lives in the "[facility]" with his brother in their tent, which is "all set up." Pt reported he has been homeless since 2002 and plans to return to his tent with his brother upon hospital discharge. Pt reported him and his brother are allegedly "getting into housing" as of 05/26, but would not elaborate on how they are planning to do this. MARLENE assessed for pt's additional resource linkages, but pt reported he was "fine" and would not elaborate on it. Pt reported he receives food stamps and SSI benefits, which he utilizes to buy food regularly. Pt denied any use of drugs or alcohol. Pt denied suicidal or homicidal ideation, but reported he felt like "hurting himself" 40+ years ago, which in turn led to a psychiatric hospitalization in [place]. Pt denied any psychiatric diagnosis or history of treatment. MARLENE provided the pt with a Homeless Resources Related to COVID-19 list, and additional resources in the [facility] area. Pt signed the Homeless Waiver Form; filled in his chart. MARLENE endorsed aforementioned information to pt's RN, [place]. Rail Manager to be available for support as needed.
[2020-05-24 11:05] LABS: CALCIUM, SERUM 9.3 mg/dL (8.5-10.1); CREATININE 0.7 mg/dL (0.6-1.3); POTASSIUM 4.3 mmol/L (3.5-5.1)
[2020-05-24] MEDS: CEFTRIAXONE 1 G in IV D5W 50 ML IV SCH (12:12)
[2020-05-24] MEDS: DIGOXIN 0.25 MG TABLET PO SCH (14:00)
--- NOTE | 2020-05-24 19:30 | NUR ---
MS RN OPENING NOTES RECEIVED PATIENT FROM MORNING SHIFT, ALERT AND ORIENTED X 2-3. VERBALLY RESPONSIVE AND ABLE TO FOLLOW DIRECTIONS. BREATHING REGULAR AND UNLABORED ON OXYGEN AT 3L/MIN VIA NASAL CANNULA. LEFT HAND G24 IV LINE INTACT AND PATENT, FLUSHING WELL WITH NO BLEEDING OR S/S OF INFILTRATION NOTED. DENIES SUICIDAL IDEATION AT THIS TIME. COMPLAINED OF 5/10 GENERALIZED PAIN, NON-PHARMACOLOGICAL INTERVENTIONS PROVIDED. BED LOW AND LOCKED ON SEMI FOWLERS POSITION. CALL LIGHT IN REACH. WILL CONTINUE TO MONITOR.
[2020-05-24] MEDS: NICOTINE PATCH (21MG) 21 MG PATCH.TD24 TD SCH (19:34)
--- NOTE | 2020-05-24 19:40 | NUR ---
MS RN NOTES COMPLAINED OF 5/10 GENERALIZED PAIN, NORCO 5/325 GIVEN BY MOUTH. NON-PHARMACOLOGICAL INTERVENTIONS PROVIDED. VITAL SIGNS WNL. WILL CONTINUE TO MONITOR.
[2020-05-25] MEDS: IPRATROPIUM/ALBUTEROL INHALER IH SCH ×4 (01:03→19:19)
--- NOTE | 2020-05-25 06:25 | NUR ---
MS RN CLOSING NOTES PATIENT IN BED ALERT AND ORIENTED X 2-3. AFEBRILE WITH NO S/S OF DISTRESS OBSERVED. LEFT HAND G24 IV LINE PATENT AND FLUSHING WELL. ON NOTHING BY MOUTH SINCE MIDNIGHT. NO COMPLAINTS OF PAIN/DISCOMFORT REPORTED AT THIS TIME. BED LOW AND LOCKED ON SEMI FOWLERS POSITION. CALL LIGHT IN REACH. WILL ENDORSE TO MORNING SHIFT FOR DEMIAN.
[2020-05-25 07:37] LABS: BASOPHILS % (AUTO) 0.2 % (0.0-2.0); EOSINOPHILS % (AUTO) 0.3 % (0.0-6.0); HEMATOCRIT 41 % (39-51); HEMOGLOBIN 13.4 g/dL (13.5-17.5); LYMPHOCYTES # (AUTO) 1.5 /CMM (0.8-4.8); LYMPHOCYTES % (AUTO) 13.5 % (20.0-44.0); MEAN CORPUSCULAR HGB CONC 32 g/dl (31.0-36.0); MEAN CORPUSCULAR VOLUME 88 fL (80-96); MONOCYTES # (AUTO) 0.8 /CMM (0.1-1.30); MONOCYTES % (AUTO) 7.2 % (2.0-12.0); NEUTROPHILS # (AUTO) 8.8 /CMM (1.8-8.9); NEUTROPHILS % (AUTO) 78.8 % (43.0-81.0); PLATELET COUNT (AUTO) 212 /CMM (150-450); WHITE BLOOD COUNT (AUTO) 11.1 K/uL (4.3-11.0)
[2020-05-25 07:52] LABS: CALCIUM, SERUM 9.2 mg/dL (8.5-10.1); CREATININE 0.7 mg/dL (0.6-1.3); MAGNESIUM 1.7 mg/dL (1.8-2.4); PHOSPHORUS 3.2 mg/dL (2.5-4.9); POTASSIUM 4.2 mmol/L (3.5-5.1)
[2020-05-25 08:00] VITALS: BP_SYST 134; BP_SYST 150; BP_DIAS 58; BP_DIAS 74
--- NOTE | 2020-05-25 08:00 | NUR ---
MS RN OPENING NOTES Received Patient awake and resting in bed. A/O x 3. VS stable with no acute distress. Breathing even and unlabored on room air with no respiratory distress. Denies pain. No signs and symptoms of pain. 24g PIV on left hand clean, intact, patent and flushing well. Safety precautions in place. Bed locked and set to lowest position with side rails x 2 up. All needs rendered at this time. Call light within reach. Will continue to monitor.
[2020-05-25] MEDS ORDERED: ANESTHESIA TRAY IN PYXIS 1 EA TRAY MC ONE (08:38)
[2020-05-25] MEDS: DILTIAZEM HCL CD 240 MG PO SCH (08:58)
[2020-05-25] MEDS: APIXABAN 5 MG TABLET PO SCH ×2 (08:58→16:42)
[2020-05-25] MEDS: predniSONE 20 MG TABLET PO SCH (08:58)
[2020-05-25] MEDS: DEMECLOCYCLINE HCL 150 MG TABLET PO SCH ×2 (08:58→21:34)
[2020-05-25] MEDS: Magnesium 1GM/D5W 100ML PREMIX 100 ML IV SCH ×2 (09:35→11:52)
--- NOTE | 2020-05-25 10:00 | NUR ---
MS RN NOTES Patient taken to OR for bronchoscopy at this time. Patient in stable condition.
--- NOTE | 2020-05-25 10:30 | NUR ---
MS RN NOTES Patient returned from OR at this time. Patient refused bronchoscopy. Patient in stable condition.
[2020-05-25] MEDS ORDERED: Digoxin PO (12:13)
[2020-05-25] MEDS ORDERED: Ipratropium/Albuterol Sulfate IH (12:13)
[2020-05-25] MEDS ORDERED: NICO-677 TD (12:13)
[2020-05-25] MEDS ORDERED: APIX5TAB PO (12:13)
[2020-05-25] MEDS ORDERED: DEME150T13 PO (12:13)
[2020-05-25] MEDS ORDERED: DILT240C88 PO (12:13)
[2020-05-25] MEDS: CEFTRIAXONE 1 G in IV D5W 50 ML IV SCH (12:56)
[2020-05-25] MEDS: DIGOXIN 0.25 MG TABLET PO SCH (14:05)
[2020-05-25 16:00] VITALS: BP 128/78
--- NOTE | 2020-05-25 19:29 | NUR ---
MS RN CLOSING NOTES Patient awake and resting in bed. A/O x 3. VS stable with no acute distress. Breathing even and unlabored on room air with no respiratory distress. Denies pain. No signs and symptoms of pain. 24g PIV on left hand clean, intact, patent and flushing well. Skin assessment pictures taken and placed in chart. Safety precautions in place. Bed locked and set to lowest position with side rails x 2 up. All needs rendered at this time. Call light within reach. Will endorse discharge plan to oncoming shift. Report given to Toni GAMEZ.
--- NOTE | 2020-05-25 19:55 | NUR ---
RN OPENING NOTES RECEIVED REPORT FROM DAYSHIFT VERA PADILLA. FOUND Pt AWAKE, SITTING UP IN BED, WATCHING TV. Pt IS BEING DISCHARGED TONIGHT TO [facility]. AMBULANCE SCHEDULED FOR MANAGER INCOME TAX @AROUND 2014. Pt IS A/OX3, VERBAL, ABLE TO MAKE NEEDS KNOWN. NO S/S OF ACUTE DISTRESS OR SOB NOTED. NO C/O PAIN OR DISCOMFORT AT THIS TIME. PER DAYSHIFT VERA PADILLA, ALL DISCHARGE EXIT CARE AND DOCUMENTATION HAS BEEN DONE AND SIGNED BY Pt, AND REPORT WAS GIVEN TO VERA DIXON AT [facility]. IV ACCESS REMAINS ON [facility] #24G, SL. WILL REMOVE IV ONCE AMBULANCE ARRIVES. SAFETY MEASURES IN PLACE. BED LOW, LOCKED, HOB ELEVATED, SIDE RAILS UP, CALL LIGHT AND BEDSIDE TABLE WITHIN REACH. WILL CONTINUE TO MONITOR Pt's CONDITION AND SAFETY UNTIL AMBULANCE ARRIVES FOR MANAGER INCOME TAX TRANSPORT.
[2020-05-25 20:00] VITALS: BP 128/69
[2020-05-25] MEDS: NICOTINE PATCH (21MG) 21 MG PATCH.TD24 TD SCH (21:34)
[2020-05-25] MEDS: HYDROCODONE/APAP 5/325MG 1 EACH TABLET PO PRN (21:45)
--- NOTE | 2020-05-25 23:02 | NUR ---
RN NOTES CALLED [facility] #: [phone]; TRIP# [id number] PER CALL SAID THAT THEIR ETA WILL BE IN 30-40MIN FROM NOW.
--- NOTE | 2020-05-25 23:25 | NUR ---
RN NOTES SPOKE WITH ZACK FROM [facility]. GAVE UPDATE OF Pt's ETA. INFORMED HER THAT Pt RECEIVED A NEW NICODERM PATCH, WAS GIVEN DECLOMYCIN 300MG PO & NORCO-5 @2969.
--- NOTE | 2020-05-26 00:02 | NUR ---
ACCOUNT EXECUTIVE HEALTHCARE NOTES AMBULANCE HOOP PUNCH AND COILER OPERATOR ARRIVED TO TRANSPORT Pt TO [facility]. REPORT GIVEN TO EMT [place]. IV ACCESS ON LHAND REMOVED. SECURED WITH GAUZE AND TAPE. NO SIGNS OF BLEEDING NOTED. ID BAND REMOVED. VS STABLE. ALL BELONGINGS WITH Pt AT BEDSIDE. Pt SECURED TO AMBULANCE [facility]AF[facility]. Pt LEFT FLOOR WITH NO S/S OF ACUTE DISTRESS OR SOB NOTED.
== END 2020-05-26 00:15 | DRG 291 ==
LOC: ER 15:42 → TELE1 18:51 → TELE-TD 18:54 → TELE1 05-20 09:41 → MEDSG1 05-24 08:06 → MEDSG2 05-24 09:15
PROVIDERS: ADMIT Internal Medicine; ATTEND Student in an Organized Health Care Education/Training Program
PROC: 05HA33Z Insertion of Infusion Device into Left Brachial Vein, Percutaneous Approach (ICD-10-PCS; principal; 2020-05-22)
DX: I11.0 Hypertensive heart disease with heart failure (principal); J15.9 Unspecified bacterial pneumonia; J96.01 Acute respiratory failure with hypoxia; J44.1 Chronic obstructive pulmonary disease with (acute) exacerbation; E22.2 Syndrome of inappropriate secretion of antidiuretic hormone; J44.0 Chronic obstructive pulmonary disease with (acute) lower respiratory infection; I50.33 Acute on chronic diastolic (congestive) heart failure; I48.91 Unspecified atrial fibrillation; E83.42 Hypomagnesemia; D63.8 Anemia in other chronic diseases classified elsewhere; Z68.31 Body mass index [BMI] 31.0-31.9, adult; F17.210 Nicotine dependence, cigarettes, uncomplicated; E78.5 Hyperlipidemia, unspecified; R91.8 Other nonspecific abnormal finding of lung field; E27.9 Disorder of adrenal gland, unspecified
CPT/HCPCS: 36410; 36415; 71045-TC; 71260-TC; 80048-TC; 80053-TC; 82550-TC; 82728-TC; 83540-TC; 83605-TC; 83615-TC; 83735-TC; 83880; 83935-TC; 84100-TC; 84300-TC; 84443-TC; 84484-TC; 84550-TC; 85025-TC; 85378-TC; 86140-TC; 87040-TC; 87081-TC; 93307-TC; A4216; G0378; J0282; J0696; J1160; J1650; J1940; J1956; J2405; J2920; J2930; J3475; J3490; J7030; J7050; J7060; Q9967; U0003-CS

== ENCOUNTER 2020-09-17 10:04 | Inpatient (IN) | payer MEDICARE, OTHER ==
[~2020-09-17] VITALS: Ht 180.3 cm; Wt 99.8 kg
[~2020-09-17 10:04] MED LIST: APIX5TAB PO; DEME150T13 PO; DILT240C88 PO; Digoxin PO; IBUP-51 PO; Ipratropium/Albuterol Sulfate IH; NICO-677 TD
--- NOTE | 2020-09-17 10:10 | NUR ---
BED 5 PT VI FROM [employer]. C/O OF LLQ ABD PAIN 07/04. ON O2 AT 2L/MIN, PT REPORTS THAT HE IS DEPENDENT ON O2 B/C OF HX OF COPD. STATES THAT THE PAIN IS CONSTANT. NO OTHER ASSOCIATED SYMPTOMS. NO REPORTS OF NAUSEA OR VOMITING. PT STATES THAT HIS LAST BM WAS LAST NIGHT. VS CHECKED. AWAITING MD BLAKE.
[2020-09-17] MEDS ORDERED: ONDANSETRON HCL/PF 4 MG/2 ML VIAL ONE (10:34)
[2020-09-17] MEDS ORDERED: MORPHINE SULFATE INJ 2 MG/ML DISP.SYRIN ONE (10:34)
[2020-09-17] MEDS ORDERED: MORPHINE SULFATE INJ 2 MG/ML DISP.SYRIN IV ONE (11:00)
[2020-09-17] MEDS ORDERED: ONDANSETRON HCL/PF 4 MG/2 ML VIAL IVP ONE (11:00)
[2020-09-17] MEDS ORDERED: DILTIAZEM HCL 50 MG IV ONE (11:00)
[2020-09-17] MEDS ORDERED: DILTIAZEM HCL 50 MG IV IV ONE ×2 (11:00→12:00)
[2020-09-17 11:04] LABS: BASOPHILS # (AUTO) 0.1 /CMM (0.0-0.2); BASOPHILS % (AUTO) 0.3 % (0.0-2.0); EOSINOPHILS % (AUTO) 0.4 % (0.0-6.0); HEMATOCRIT 26 % (39-51); HEMOGLOBIN 8.2 g/dL (13.5-17.5); LYMPHOCYTES # (AUTO) 1.4 /CMM (0.8-4.8); LYMPHOCYTES % (AUTO) 5.7 % (20.0-44.0); MEAN CORPUSCULAR HGB CONC 32 g/dl (31.0-36.0); MEAN CORPUSCULAR VOLUME 94 fL (80-96); MONOCYTES # (AUTO) 0.1 /CMM (0.1-1.30); MONOCYTES % (AUTO) 0.3 % (2.0-12.0); NEUTROPHILS # (AUTO) 23.6 /CMM (1.8-8.9); NEUTROPHILS % (AUTO) 93.3 % (43.0-81.0); PLATELET COUNT (AUTO) 150 /CMM (150-450); RED BLOOD CELL COUNT(AUTO) 2.73 MIL/uL (4.5-6.0); WHITE BLOOD COUNT (AUTO) 25.3 K/uL (4.3-11.0)
[2020-09-17 11:13] LABS: APPEARANCE,URINE CLEAR (CLEAR); BILIRUBIN,URINE NEGATIVE (NEGATIVE); BLOOD, URINE SMALL Ery/uL (NEGATIVE); KETONES,URINE NEGATIVE (NEGATIVE); LEUKOCYTE ESTERASE ,URINE NEGATIVE (NEGATIVE); NITRITE, URINE NEGATIVE (NEGATIVE); PROTEIN,URINE 100 mg/dl (NEGATIVE); UGLUCOSE NEGATIVE (NEGATIVE)
[2020-09-17 11:16] LABS: ALBUMIN 2.9 g/dL (3.4-5.0); BILIRUBIN,DIRECT 0.2 mg/dL (0.0-0.2); BILIRUBIN,TOTAL 0.7 mg/dL (0.2-1.0); CALCIUM, SERUM 8.5 mg/dL (8.5-10.1); CREATININE 0.7 mg/dL (0.6-1.3); POTASSIUM 3.9 mmol/L (3.5-5.1); TOTAL PROTEIN, SERUM 7.1 g/dL (6.4-8.2)
[2020-09-17] MEDS ORDERED: ONDA4TAB11 PO (11:16)
[2020-09-17] MEDS ORDERED: MAGN400O6 PO (11:16)
[2020-09-17] MEDS ORDERED: ASCO500C16 PO (11:16)
[2020-09-17] MEDS ORDERED: SACC250C PO (11:16)
[2020-09-17] MEDS ORDERED: MAGN400T8 PO (11:16)
[2020-09-17] MEDS ORDERED: DIGO250T PO (11:16)
[2020-09-17] MEDS ORDERED: SIME80TA15 PO (11:16)
[2020-09-17] MEDS ORDERED: LORA-259 PO (11:16)
[2020-09-17] MEDS ORDERED: TOLV30TA PO (11:16)
[2020-09-17] MEDS ORDERED: HYDR-4384 PO (11:16)
[2020-09-17] MEDS ORDERED: SODI100037 PO (11:16)
[2020-09-17] MEDS ORDERED: IPRA4AER IH (11:16)
[2020-09-17] MEDS ORDERED: BISA-79 PO (11:16)
[2020-09-17] MEDS ORDERED: ZOLP5TAB8 PO (11:17)
[2020-09-17 11:21] LABS: COLOR,URINE YELLOW (YELLOW)
[2020-09-17 11:25] LABS: BACTERIA,URINE None seen /HPF (None Seen); RBC,URINE 0-2 /HPF (0-2); SQUAMOUS EPITHELIAL CELL,UR Few /HPF (None Seen); WBC,URINE NONE SEEN /HPF (0-3)
--- NOTE | 2020-09-17 11:56 | NUR ---
PT TO CT
[2020-09-17] MEDS ORDERED: PIPERACILLIN /TAZOBACTAM 3.375 G in IV D5W 50 ML IV ONE (12:00)
[2020-09-17 12:19] LABS: BAND % (MANUAL) 3 % (0.0-5.0); LYMPHOCYTES % (MANUAL) 5 % (16-48); MONOCYTES % (MANUAL) 5 % (0-11.0); NEUTROPHILS % (MANUAL) 87 (42-76)
--- NOTE | 2020-09-17 12:27 | NUR ---
PT STILL NOTED WITH HR IN THE 130-140S. MD MADE AWARE. NNO AT THIS TIME. CONTINUE TO MONITOR PT PER MD ORDERED
[2020-09-17] MEDS ORDERED: PIPERACILLIN /TAZOBACTAM 3.375 G VIAL IV ONE (12:31)
--- NOTE | 2020-09-17 12:35 | NUR ---
PAGED [facility].
[2020-09-17] MEDS ORDERED: MORPHINE SULFATE INJ 4 MG/ML DISP.SYRIN ONE (12:41)
[2020-09-17] MEDS ORDERED: MORPHINE SULFATE INJ 4 MG/ML DISP.SYRIN IV ONE (13:00)
--- NOTE | 2020-09-17 13:08 | NUR ---
CALLED NURSING SUP FOR TELE BED.
--- NOTE | 2020-09-17 13:41 | NUR ---
Damien gregory in ED - 09/17/20 at 1342 by JOSUÉ NURSING SUP GAVE M/S BED 200.
--- NOTE | 2020-09-17 13:42 | NUR ---
NURSING SUP GAVE TELE BED 200.
[2020-09-17] MEDS ORDERED: ZOLPIDEM TARTRATE 5 MG TABLET PO PRN (14:00)
[2020-09-17] MEDS ORDERED: LORAZEPAM 1 MG TABLET PO PRN (14:00)
[2020-09-17] MEDS ORDERED: ONDANSETRON 4 MG TAB.RAPDIS PO PRN (14:00)
[2020-09-17] MEDS ORDERED: MAG HYDROX/AL HYDROX/SIMETH 30 ML UDC PO PRN (14:00)
[2020-09-17] MEDS ORDERED: ONDANSETRON HCL/PF 4 MG/2 ML VIAL IVP PRN (14:00)
[2020-09-17] MEDS: NICOTINE PATCH (21MG) 21 MG PATCH.TD24 TD SCH (14:00)
[2020-09-17] MEDS ORDERED: DILTIAZEM HCL 25 MG IV IV PRN (14:00)
[2020-09-17] MEDS ORDERED: MAGNESIUM HYDROXIDE 30 ML UDC PO PRN ×2 (14:00)
[2020-09-17] MEDS ORDERED: Z GUARD REMEDY 2 OZ OINT TP PRN (14:00)
[2020-09-17] MEDS ORDERED: SIMETHICONE 80 MG TAB.CHEW PO PRN (14:00)
[2020-09-17 15:00] VITALS: BP 117/76
--- NOTE | 2020-09-17 15:16 | NUR ---
Received patient awake alert and oriented x4 , ambulatory with assistance. Breathing unlabored and even on 2L of oxygen tolerated well. IV line flushing well. Patient stated he had abd pain 8/10. Will administrate pain medication as directed. Skin assessed and intact. On left elbow there is a dry scar and patient refused to take a picture of it. Patient oriented to room , educated to use call light. Safety precautions implemented as well as isolation precautions. Covid test result is pending. Patient placed and TELE monitor and showing A-fib with the HR 108-148, unstable. Will continue to monitor and f/u with plan of care
--- NOTE | 2020-09-17 15:16 | NUR ---
PT TRANSPORTED TO UNIT ON [place] WITH EMT AND RN AT BEDSIDE W/ ACLS PROTOCOL. NAD NOTED.
[2020-09-17] MEDS: DIGOXIN 0.125 MG TABLET PO SCH (16:15)
[2020-09-17] MEDS: SODIUM CHLORIDE 1000 MG TABLET PO SCH (16:15)
[2020-09-17] MEDS ORDERED: APIXABAN 5 MG TABLET PO SCH (17:00)
[2020-09-17] MEDS ORDERED: Medication Not On Formulary EA (Ipratropium/Albuterol Sulfate (Combivent Respimat 20-100 IH SCH (17:00)
[2020-09-17] MEDS ORDERED: DIGOXIN INJ 0.5 MG/2 ML AMPUL IV ONE (19:00)
[2020-09-17] MEDS: IPRATROPIUM NEB FS 0.5 MG/2.5 ML AMPUL.NEB NEB SCH (19:30)
[2020-09-17] MEDS: ALBUTEROL FS 2.5 MG/0.5 ML VIAL.NEB NEB SCH (19:30)
--- NOTE | 2020-09-17 19:30 | NUR ---
Report given radha evans RN. Patient in stable condition
[2020-09-17 20:00] VITALS: BP 125/67
--- NOTE | 2020-09-17 20:56 | NUR ---
RN NOTE PT RECEIVED IN BED A/A/O X3. PT IS ON 2L VIA NC SATING 98%. PT HAS UNLABORED BREATHING, PT ON TELE MONITOR SHOWING AFIB WITH RVR, HR IN 120s. SAFETY MEASURE IN PLACE CALL LIGHT IN REACH, BED AT LOWEST POSITION LOCKED, SIDE RAILS UP X2.
[2020-09-17 22:05] VITALS: BP 128/67
--- NOTE | 2020-09-17 23:28 | NUR ---
RT NOTE HHN TX NOT GIVEN DUE TO PATIENT IS A RULE OUT FOR COVID-19
[2020-09-17] MEDS: MORPHINE SULFATE INJ 2 MG/ML DISP.SYRIN IV PRN (23:37)
[2020-09-18] VITALS: BP_SYST 93; BP_SYST 96; BP_DIAS 50; BP_DIAS 54
[2020-09-18] MEDS: ALBUTEROL FS 2.5 MG/0.5 ML VIAL.NEB NEB SCH ×4 (01:30→20:20)
[2020-09-18] MEDS: IPRATROPIUM NEB FS 0.5 MG/2.5 ML AMPUL.NEB NEB SCH ×4 (01:30→20:20)
[2020-09-18 04:00] VITALS: BP 113/69
[2020-09-18] MEDS: MORPHINE SULFATE INJ 2 MG/ML DISP.SYRIN IV PRN (05:09)
[2020-09-18 06:52] LABS: CALCIUM, SERUM 8.3 mg/dL (8.5-10.1); CREATININE 0.5 mg/dL (0.6-1.3); PHOSPHORUS 3.8 mg/dL (2.5-4.9)
[2020-09-18 07:02] LABS: BASOPHILS % (AUTO) 0.2 % (0.0-2.0); EOSINOPHILS % (AUTO) 0.6 % (0.0-6.0); HEMATOCRIT 25 % (39-51); HEMOGLOBIN 7.8 g/dL (13.5-17.5); LYMPHOCYTES # (AUTO) 1.4 /CMM (0.8-4.8); LYMPHOCYTES % (AUTO) 8.2 % (20.0-44.0); MEAN CORPUSCULAR HGB CONC 31 g/dl (31.0-36.0); MEAN CORPUSCULAR VOLUME 95 fL (80-96); MONOCYTES # (AUTO) 0.1 /CMM (0.1-1.30); MONOCYTES % (AUTO) 0.7 % (2.0-12.0); NEUTROPHILS # (AUTO) 14.9 /CMM (1.8-8.9); NEUTROPHILS % (AUTO) 90.3 % (43.0-81.0); PLATELET COUNT (AUTO) 103 /CMM (150-450); RED BLOOD CELL COUNT(AUTO) 2.64 MIL/uL (4.5-6.0); WHITE BLOOD COUNT (AUTO) 16.5 K/uL (4.3-11.0)
[2020-09-18 07:15] LABS: MAGNESIUM 1.2 mg/dL (1.8-2.4)
--- NOTE | 2020-09-18 07:20 | NUR ---
SMALL ARMS ARTILLERY REPAIRER NOTES PATIENT IN BED ALERT ORIENTED X 3. NO ACUTE DISTRESS NOTED. BREATHING UNLABORED. NO SOB NOTED. IV ACCESS PATENT AND INTACT, NO REDNESS, NO SWELLING NOTED.SAFETY MEASURES IN PLACE. CALL LIGHT WITHIN REACH. WILL CONTINUE TO MONITOR ACCORDINGLY.
--- NOTE | 2020-09-18 07:27 | NUR ---
RN NOTE PT REMAINED STABLE DURING MY SHIFT REPORT GIVEN TO INCOMING SHIFT FOR DEMIAN.
[2020-09-18] MEDS ORDERED: DIGOXIN INJ 0.5 MG/2 ML AMPUL IV ONE (07:30)
[2020-09-18 08:00] VITALS: BP 106/67
[2020-09-18] MEDS: SODIUM CHLORIDE 1000 MG TABLET PO SCH ×3 (08:52→16:14)
[2020-09-18] MEDS: LACTOBACILLUS RHAMNOSUS GG 1 EACH CAP.SPRINK PO SCH (08:53)
[2020-09-18] MEDS: ASCORBIC ACID 500 MG TABLET PO SCH (08:53)
[2020-09-18] MEDS: BISACODYL (5 MG) 5 MG TABLET.DR PO SCH (08:53)
[2020-09-18] MEDS: MAGNESIUM OXIDE 400 MG TABLET PO SCH (08:53)
[2020-09-18 08:54] LABS: IRON, SERUM 203 ug/dl (50-175); TOTAL IRON BINDING CAPACITY 252 ug/dl (250-450)
[2020-09-18] MEDS ORDERED: SAMSCA PO SCH (09:00)
[2020-09-18] MEDS: DILTIAZEM HCL CD 240 MG PO SCH (09:00)
[2020-09-18] MEDS: Magnesium 1GM/D5W 100ML PREMIX 100 ML IV SCH ×2 (09:14→10:43)
[2020-09-18 09:34] LABS: FERRITIN 3378 ng/mL (8-388)
[2020-09-18 12:00] VITALS: BP 115/75
[2020-09-18] MEDS: DIGOXIN 0.125 MG TABLET PO SCH (12:35)
[2020-09-18] MEDS: ACETAMINOPHEN 325 MG TABLET PO PRN ×2 (12:43→19:49)
--- NOTE | 2020-09-18 12:43 | NUR ---
ONLINE EDITOR NOTES PATIENT COMPLAINT OF 3/10 LEFT LOWER BACK PAIN, TYLENOL GIVEN ORDERED.
[2020-09-18] MEDS: NICOTINE PATCH (21MG) 21 MG PATCH.TD24 TD SCH (13:43)
[2020-09-18 16:00] VITALS: BP 114/60
--- NOTE | 2020-09-18 16:45 | NUR ---
ARCHITECTURE FACULTY MEMBER NOTES PATIENT TRANSFER TO [address] [place] [address] IN STABLE CONDITION. REPORT GIVEN SAMM GAMEZ. NO ACUTE DISTRESS NOTED. BREATHING UNLABORED. NO SOB NOTED. IV ACCESS PATIENT AND INTACT, NO REDNESS, NO SWELLING NOTED. NEEDS ATTENDED AND ANTICIPATED. ALL BELONGINGS BROUGHT WITH THE PATIENT. NEEDS ATTENDED AND ANTICIPATED. SAFETY MEASURES IN PLACE
--- NOTE | 2020-09-18 17:17 | NUR ---
TELE/RN NOTES RECEIVED REPORT FROM NEVA GAMEZ, PATIENT IS ALERT AND ORIENTED X 4. DENIES PAIN AT THIS TIME. NO APPARENT RESPIRATORY DISTRESS NOTED. WILL CONTINUE TO MONITOR.
[2020-09-18] MEDS: MORPHINE SULFATE INJ 4 MG/ML DISP.SYRIN IV PRN ×2 (18:00→22:10)
--- NOTE | 2020-09-18 18:43 | NUR ---
TELE/RN CLOSING NOTES PATIENT IS ON BED. AWAKE ALERT AND ORIENTED X4. PATIENT IN NO APPARENT RESPIRATORY DISTRESS NOTED. NO COMPLAINED OF PAIN NOTED AT THIS TIME. TELE MONITOR IN PLACED READING AFIB 90 - 120 BPM. IV ACCESS AT RIGHT HAND # 22 G PATENT AND INTACT. SEEN AND EXAMINED BY MD WITH ORDERS MADE AND CARRIED OUT. ALL DUE MEDICATION WAS GIVEN. SAFETY PRECAUTIONS WAS IN PLACED. BED IN LOWEST POSITION AND LOCKED. SIDERAILS UP X 2. CALL LIGHT WITH IN REACH. SITTER IS ON BEDSIDE. WILL ENDORSED TO CORONER FOR DEMIAN.
--- NOTE | 2020-09-18 19:15 | NUR ---
GAS FITTER HELPER OPENING NOTES: RECEIVED PATIENT IN BED, AWAKE, A/O X4. NO S/S OF DISTRESS NOTED. CALL LIGHT WITHIN REACH. BED ALARM ON. BED IN LOWEST AND LOCKED POSITION. HOB ELEVATED. WITH O2 AT 2L/MIN. NASAL CANNULA. WITH SCD'S-DVT PUMPS ON BOTH LEGS. HOB ELEVATED.
[2020-09-18 20:00] VITALS: BP 128/74
[2020-09-19] VITALS: BP 127/67
[2020-09-19] MEDS: IPRATROPIUM NEB FS 0.5 MG/2.5 ML AMPUL.NEB NEB SCH ×4 (01:56→19:47)
[2020-09-19] MEDS: ALBUTEROL FS 2.5 MG/0.5 ML VIAL.NEB NEB SCH ×4 (01:56→19:47)
[2020-09-19] MEDS: MORPHINE SULFATE INJ 4 MG/ML DISP.SYRIN IV PRN ×2 (02:19→17:16)
[2020-09-19] MEDS: ACETAMINOPHEN 325 MG TABLET PO PRN ×2 (03:32→13:21)
[2020-09-19 03:50] VITALS: BP 116/62
[2020-09-19 04:00] VITALS: BP 116/62
--- NOTE | 2020-09-19 05:31 | NUR ---
CAR JOCKEY CLOSING NOTES: PATIENT IN BED, ASLEEP,EASILY AROUSABLE. NO S/S OF DISTRESS NOTED. CALL LIGHT WITHIN REACH. BED IN LOWEST AND LOCKED P[OSITION. BED ALARM ON. HOB ELEVATED AT ALL TIMES.
--- NOTE | 2020-09-19 07:20 | NUR ---
PATIENT IS ON BED. AWAKE ALERT AND ORIENTED X2. PATIENT IN NO APPARENT RESPIRATORY DISTRESS NOTED. NO COMPLAINED OF PAIN NOTED AT THIS TIME. TELE MONITOR IN PLACED READING AFIB 90 - 120 BPM. IV ACCESS AT RIGHT HAND # 22 G PATENT AND INTACT. SAFETY PRECAUTIONS WAS IN PLACED. BED IN LOWEST POSITION AND LOCKED. SIDERAILS UP X 2. CALL LIGHT WITH IN REACH.
[2020-09-19 07:58] LABS: BASOPHILS % (AUTO) 0.5 % (0.0-2.0); EOSINOPHILS % (AUTO) 1.3 % (0.0-6.0); HEMATOCRIT 24 % (39-51); HEMOGLOBIN 7.9 g/dL (13.5-17.5); LYMPHOCYTES # (AUTO) 1.2 /CMM (0.8-4.8); LYMPHOCYTES % (AUTO) 24.8 % (20.0-44.0); MEAN CORPUSCULAR HGB CONC 32 g/dl (31.0-36.0); MEAN CORPUSCULAR VOLUME 93 fL (80-96); MONOCYTES # (AUTO) 0.1 /CMM (0.1-1.30); MONOCYTES % (AUTO) 2.9 % (2.0-12.0); NEUTROPHILS # (AUTO) 3.3 /CMM (1.8-8.9); NEUTROPHILS % (AUTO) 70.5 % (43.0-81.0); PLATELET COUNT (AUTO) 63 /CMM (150-450); RED BLOOD CELL COUNT(AUTO) 2.62 MIL/uL (4.5-6.0); WHITE BLOOD COUNT (AUTO) 4.7 K/uL (4.3-11.0)
[2020-09-19 08:00] VITALS: BP_SYST 120; BP_SYST 128; BP_DIAS 69; BP_DIAS 74
[2020-09-19] MEDS ORDERED: FUROSEMIDE 40 MG/4 ML VIAL IV ONE (08:00)
[2020-09-19 08:38] LABS: CALCIUM, SERUM 8.5 mg/dL (8.5-10.1); CREATININE 0.5 mg/dL (0.6-1.3); PHOSPHORUS 3.6 mg/dL (2.5-4.9); POTASSIUM 3.8 mmol/L (3.5-5.1)
[2020-09-19] MEDS: HYDROCODONE/APAP 5/325MG TABLET PO PRN ×3 (09:14→22:13)
[2020-09-19] MEDS: MAGNESIUM OXIDE 400 MG TABLET PO SCH (09:14)
[2020-09-19] MEDS: ASCORBIC ACID 500 MG TABLET PO SCH (09:15)
[2020-09-19] MEDS: BISACODYL (5 MG) 5 MG TABLET.DR PO SCH (09:15)
[2020-09-19] MEDS: SODIUM CHLORIDE 1000 MG TABLET PO SCH ×3 (09:15→16:54)
[2020-09-19] MEDS: LACTOBACILLUS RHAMNOSUS GG 1 EACH CAP.SPRINK PO SCH (09:15)
[2020-09-19] MEDS: DILTIAZEM HCL CD 240 MG PO SCH (09:15)
[2020-09-19 10:15] LABS: BAND % (MANUAL) 2 % (0.0-5.0); EOSINOPHILS % (MANUAL) 2 % (0-4); LYMPHOCYTES % (MANUAL) 21 % (16-48); MONOCYTES % (MANUAL) 3 % (0-11.0); NEUTROPHILS % (MANUAL) 72 (42-76)
[2020-09-19 10:58] LABS: MAGNESIUM 1.2 mg/dL (1.8-2.4)
--- NOTE | 2020-09-19 10:58 | NUR ---
RECEIVED CRITICAL MG 1.2 LEVEL FROM PHARMACY. INFORMED MD AWAITING ORDERS.
--- NOTE | 2020-09-19 12:00 | NUR ---
INFORMED RADHA PT IS RETAINING OVER 300ML. UNABLE TO VOID ALL MORNING. ORDERED AVERY CATH PLACEMENT.
[2020-09-19] MEDS: NICOTINE PATCH (21MG) 21 MG PATCH.TD24 TD SCH (14:20)
[2020-09-19] MEDS: DIGOXIN 0.125 MG TABLET PO SCH (14:22)
--- NOTE | 2020-09-19 15:30 | NUR ---
PT REFUSES AVERY. PT STATED "I DON'T WANT IT". EXPLAINED REASON FOR AVERY ORDER AND PT VERBALIZED UNDERSTANDING.
[2020-09-19 16:00] VITALS: BP 104/56
--- NOTE | 2020-09-19 19:30 | NUR ---
PATIENT IS ON BED. ASLEEP BUT AROUSABLE. PATIENT IN NO APPARENT RESPIRATORY DISTRESS NOTED. NO COMPLAINED OF PAIN NOTED AT THIS TIME. TELE MONITOR IN PLACED READING AFIB 90 - 120 BPM. IV ACCESS AT RIGHT FA # 22 G PATENT AND INTACT. SAFETY PRECAUTIONS WAS IN PLACED. BED IN LOWEST POSITION AND LOCKED. SIDERAILS UP X 2. CALL LIGHT WITH IN REACH. ENDORSED TO PM RN FOR CONTINUATION OF CARE.
--- NOTE | 2020-09-19 19:50 | NUR ---
CAROUSEL OPERATOR OPENING NOTES RECEIVED PATIENT IN BED ALERT AND ORIENTED X 3. VERBALLY RESPONSIVE AND ABLE TO FOLLOW DIRECTIONS. BREATHING REGULAR AND UNLABORED ON OXYGEN AT 3L/MIN VIA NASAL CANNULA, LATEST SPO2 94%. RIGHT FOREARM G22 IV LINE INTACT AND PATENT, FLUSHING WELL WITH NO BLEEDING OR S/S OF INFILTRATION NOTED. ON CARDIAC MONITORING WITH ATRIAL FIBRILLATION AT 109bpm. DENIES SUICIDAL IDEATION OR PAIN/DISCOMFORT AT THIS TIME. BED LOW AND LOCKED ON SEMI FOWLERS POSITION. CALL LIGHT IN REACH. WILL CONTINUE TO MONITOR.
[2020-09-19 20:00] VITALS: BP 115/69
--- NOTE | 2020-09-19 22:15 | NUR ---
DOUGH MOLDER HAND NOTES COMPLAINED OF 7/10 GENERALIZED PAIN, "IT'S ALL OVER" PER PATIENT. NORCO 5/325 GIVEN BY MOUTH. NON-PHARMACOLOGICAL INTERVENTIONS PROVIDED. VITAL SIGNS WNL. WILL CONTINUE TO MONITOR.
[2020-09-20] VITALS: BP 102/61
[2020-09-20] MEDS: ALBUTEROL FS 2.5 MG/0.5 ML VIAL.NEB NEB SCH ×4 (01:38→19:36)
[2020-09-20] MEDS: IPRATROPIUM NEB FS 0.5 MG/2.5 ML AMPUL.NEB NEB SCH ×4 (01:38→19:36)
[2020-09-20 04:00] VITALS: BP 120/67
--- NOTE | 2020-09-20 06:40 | NUR ---
CATTLE BROKER CLOSING NOTES PATIENT IN BED ALERT AND ORIENTED X 3. AFEBRILE WITH NO S/S OF DISTRESS OBSERVED, LATEST SPO2 95%. RIGHT FOREARM G22 IV LINE PATENT AND FLUSHING WELL. MAINTAINED ON CARDIAC MONITORING WITH ATRIAL FIBRILLATION AT 112bpm. NO COMPLAINTS OF PAIN/DISCOMFORT AT THIS TIME. BED LOW AND LOCKED ON SEMI FOWLERS POSITION. CALL LIGHT IN REACH. WILL ENDORSE TO MORNING SHIFT FOR DEMIAN.
[2020-09-20 06:55] LABS: EOSINOPHILS % (AUTO) 1.6 % (0.0-6.0); HEMATOCRIT 22 % (39-51); HEMOGLOBIN 7.1 g/dL (13.5-17.5); LYMPHOCYTES # (AUTO) 1.1 /CMM (0.8-4.8); LYMPHOCYTES % (AUTO) 51.6 % (20.0-44.0); MEAN CORPUSCULAR HGB CONC 33 g/dl (31.0-36.0); MEAN CORPUSCULAR VOLUME 92 fL (80-96); MONOCYTES # (AUTO) 0.1 /CMM (0.1-1.30); MONOCYTES % (AUTO) 6.9 % (2.0-12.0); NEUTROPHILS # (AUTO) 0.8 /CMM (1.8-8.9); NEUTROPHILS % (AUTO) 38.9 % (43.0-81.0); RED BLOOD CELL COUNT(AUTO) 2.34 MIL/uL (4.5-6.0); WHITE BLOOD COUNT (AUTO) 2.1 K/uL (4.3-11.0)
[2020-09-20 07:21] LABS: PLATELET COUNT (AUTO) 46 /CMM (150-450)
[2020-09-20 07:40] LABS: CALCIUM, SERUM 8.7 mg/dL (8.5-10.1); CREATININE 0.5 mg/dL (0.6-1.3); POTASSIUM 4.3 mmol/L (3.5-5.1)
--- NOTE | 2020-09-20 07:45 | NUR ---
RN NOTE THE PATIENT IS RECEIVED IN BED. ALERT AND ORIENTED X3. DENIES PAIN. RECEIVING OXYGEN AT 3L/MIN VIA NASAL CANNULA AND DENIES SOB. RESPIRATION REGULAR AND UNLABORED. TELE BOX READING IS [id number]. THE PATIENT IN NO APPARENT DISTRESS. RFA G 22 PATENT AND SALINE LOCKED. BED LOW AND LOCKED. SIDE RAILS UP X3. CALL LIGHT WITHIN REACH. WILL CONTINUE TO MONITOR.
[2020-09-20 08:00] VITALS: BP 105/68
[2020-09-20 08:27] LABS: BAND % (MANUAL) 4 % (0.0-5.0); EOSINOPHILS % (MANUAL) 2 % (0-4); LYMPHOCYTES % (MANUAL) 40 % (16-48); MONOCYTES % (MANUAL) 2 % (0-11.0); NEUTROPHILS % (MANUAL) 52 (42-76)
[2020-09-20] MEDS: DILTIAZEM HCL CD 180 MG PO SCH (09:00)
[2020-09-20] MEDS: ASCORBIC ACID 500 MG TABLET PO SCH (09:55)
[2020-09-20] MEDS: BISACODYL (5 MG) 5 MG TABLET.DR PO SCH (09:55)
[2020-09-20] MEDS: SODIUM CHLORIDE 1000 MG TABLET PO SCH ×3 (09:55→17:57)
[2020-09-20] MEDS: LACTOBACILLUS RHAMNOSUS GG 1 EACH CAP.SPRINK PO SCH (09:55)
[2020-09-20] MEDS: HYDROCODONE/APAP 5/325MG TABLET PO PRN ×2 (09:55→20:02)
[2020-09-20] MEDS: MAGNESIUM OXIDE 400 MG TABLET PO SCH (09:55)
--- NOTE | 2020-09-20 10:28 | NUR ---
RN NOTE STAT CHEST X-RAY POST THORACENTESIS ORDERED PER DR GARCIA.NOTED AND CARRIED OUT.
--- NOTE | 2020-09-20 10:45 | NUR ---
RN NOTE DR GARCIA IS MADE AWARE PATIENT HAVING THORACENTESIS WITH [address] GARCIA ORDERED CULTURE AND GRAM STAIN TO BE DONE WITH FLUID. NOTED AND CARRIED OUT.
[2020-09-20] MEDS: MORPHINE SULFATE INJ 4 MG/ML DISP.SYRIN IV PRN (11:31)
[2020-09-20] MEDS: METOPROLOL TARTRATE 50 MG TABLET PO SCH ×3 (12:00→23:52)
--- NOTE | 2020-09-20 12:59 | NUR ---
RN NOTE DR GARCIA IS MADE AWARE THAT THE PATIENT`S MAGNESIUM LEVEL IS 1.2. PER NO NEW ORDERS BECAUSE THE PATIENT ALREADY HAD MAGNESIUM OXIDE 800 MG PO THIS MORNING.
[2020-09-20] MEDS: DIGOXIN 0.125 MG TABLET PO SCH (13:19)
--- NOTE | 2020-09-20 14:30 | NUR ---
RN NOTE PER DR ARANDA THE PATIENT IS CLEARED FOR DISCHARGE.
[2020-09-20] MEDS: NICOTINE PATCH (21MG) 21 MG PATCH.TD24 TD SCH (15:19)
[2020-09-20 16:00] VITALS: BP 98/58
--- NOTE | 2020-09-20 18:27 | NUR ---
RN THE PATIENT IS ALERT AND ORIENTED X3. DENIES PAIN. PATIENT IS RECEIVING OXYGEN AT 2L/MIN ANSAL CANNULA AND SATURATION IS AT 92%. DENIES SOB. RESPIRATION REGULAR AND UNLABORED. PATIENT IN NO APPARENT DISTRESS. FFA G 22 PATENT AND SALINE LOCKED. BED LOW AND LOCKED. SIDE RIALS UP X3. CALL LIGHT WITHIN REACH. WILL ENDORSE TO COMMUNICATIONS PROJECT LEAD.
--- NOTE | 2020-09-20 19:55 | NUR ---
MS RN OPENING NOTES RECEIVED PATIENT IN BED ALERT AND ORIENTED X 3. VERBALLY RESPONSIVE AND ABLE TO FOLLOW DIRECTIONS. BREATHING REGULAR AND UNLABORED ON OXYGEN AT 3L/MIN VIA NASAL CANNULA, LATEST SPO2 96%. RIGHT FOREARM G22 IV LINE INTACT AND PATENT, FLUSHING WELL WITH NO BLEEDING OR S/S OF INFILTRATION NOTED. S/P THORACENTESIS WITH 1L OUTPUT, NO ACTIVE BLEEDING ON PUNCTURE SITE SEEN. DENIES SUICIDAL IDEATION BUT COMPLAINED OF 9/10 GENERALIZED PAIN. NON-PHARMACOLOGICAL INTERVENTIONS PROVIDED. BED LOW AND LOCKED ON SEMI FOWLERS POSITION. CALL LIGHT IN REACH. WILL CONTINUE TO MONITOR.
[2020-09-20 20:00] VITALS: BP 94/59
--- NOTE | 2020-09-20 20:05 | NUR ---
MS RN NOTES COMPLAINED OF 9/10 GENERALIZED/CHEST PUNCTURE SITE PAIN, NORCO 5/325 GIVEN BY MOUTH. OFFERED MORPHINE BUT PATIENT REQUESTED FOR NORCO INSTEAD. NON-PHARMACOLOGICAL INTERVENTIONS PROVIDED. WILL CONTINUE TO MONITOR.
[2020-09-20 20:40] VITALS: BP 94/59
[2020-09-21] MEDS: ALBUTEROL FS 2.5 MG/0.5 ML VIAL.NEB NEB SCH ×4 (00:25→19:43)
[2020-09-21] MEDS: IPRATROPIUM NEB FS 0.5 MG/2.5 ML AMPUL.NEB NEB SCH ×4 (00:25→19:43)
[2020-09-21] MEDS: METOPROLOL TARTRATE 50 MG TABLET PO SCH ×3 (05:52→17:35)
--- NOTE | 2020-09-21 06:45 | NUR ---
MS RN CLOSING NOTES PATIENT IN BED ALERT AND ORIENTED X 3. AFEBRILE WITH NO S/S OF DISTRESS OBSERVED, LATEST SPO2 95%. RIGHT FOREARM G22 IV LINE PATENT AND FLUSHING WELL. NO COMPLAINTS OF PAIN/DISCOMFORT AT THIS TIME. BED LOW AND LOCKED ON SEMI FOWLERS POSITION. CALL LIGHT IN REACH. WILL ENDORSE TO MORNING SHIFT FOR DEMIAN.
--- NOTE | 2020-09-21 07:46 | NUR ---
MS RN OPENING NOTES BEDSIDE ENDORSEMENT DONE. PATIENT IS RESTING IN BED, ALERT AND ORIENTED X3, ABLE TO MAKE NEEDS KNOWN. HOB ELEVATED. BREATHING EVEN AND UNLABORED, ON O2 AT 3LPM VIA N/C, NO RESPIRATORY DISTRESS. IV LINE ON RIGHT FOREARM #22, INTACT AND PATENT. SAFETY PRECAUTIONS IN PLACE: BED LOCKED AND ON LOWEST POSITION, SR UP X2, CALL LIGHT IN REACH. WILL CONTINUE TO MONITOR.
[2020-09-21 08:00] VITALS: BP 98/57
[2020-09-21 08:10] LABS: BASOPHILS % (AUTO) 0.9 % (0.0-2.0); EOSINOPHILS % (AUTO) 1.5 % (0.0-6.0); HEMATOCRIT 22 % (39-51); HEMOGLOBIN 7.2 g/dL (13.5-17.5); LYMPHOCYTES % (AUTO) 67.4 % (20.0-44.0); MEAN CORPUSCULAR HGB CONC 32 g/dl (31.0-36.0); MEAN CORPUSCULAR VOLUME 93 fL (80-96); MONOCYTES % (AUTO) 12.3 % (2.0-12.0); NEUTROPHILS # (AUTO) 0.3 /CMM (1.8-8.9); NEUTROPHILS % (AUTO) 17.9 % (43.0-81.0); RED BLOOD CELL COUNT(AUTO) 2.41 MIL/uL (4.5-6.0)
[2020-09-21 08:11] LABS: MONOCYTES # (AUTO) 0.2 /CMM (0.1-1.30)
[2020-09-21 08:22] LABS: PLATELET COUNT (AUTO) 35 /CMM (150-450); WHITE BLOOD COUNT (AUTO) 1.5 K/uL (4.3-11.0)
[2020-09-21 08:25] LABS: ALBUMIN 2.5 g/dL (3.4-5.0); BILIRUBIN,TOTAL 0.7 mg/dL (0.2-1.0); CALCIUM, SERUM 8.9 mg/dL (8.5-10.1); CREATININE 0.7 mg/dL (0.6-1.3); PHOSPHORUS 3.4 mg/dL (2.5-4.9); POTASSIUM 4.5 mmol/L (3.5-5.1); TOTAL PROTEIN, SERUM 6.9 g/dL (6.4-8.2)
[2020-09-21] MEDS: LACTOBACILLUS RHAMNOSUS GG 1 EACH CAP.SPRINK PO SCH (08:36)
[2020-09-21] MEDS: ASCORBIC ACID 500 MG TABLET PO SCH (08:36)
[2020-09-21] MEDS: BISACODYL (5 MG) 5 MG TABLET.DR PO SCH (08:36)
[2020-09-21] MEDS: MAGNESIUM OXIDE 400 MG TABLET PO SCH (08:37)
[2020-09-21] MEDS: SODIUM CHLORIDE 1000 MG TABLET PO SCH ×3 (08:39→16:28)
[2020-09-21] MEDS: HYDROCODONE/APAP 5/325MG TABLET PO PRN ×2 (08:41→17:46)
[2020-09-21 08:42] LABS: MAGNESIUM 1.2 mg/dL (1.8-2.4)
[2020-09-21] MEDS: DILTIAZEM HCL CD 180 MG PO SCH (08:46)
--- NOTE | 2020-09-21 09:30 | NUR ---
RN NOTES RECEIVED CALL FROM LAB OF PATIENTS WBC AND PLT COUNT OF 1.5 AND 35, MAG LEVEL OF 1.2. DR. GARCIA MADE AWARE, AND RESPONDED THAT PATIENT IS ON CHEMO; ALSO AWARE THAT PATIENT IS ON MAG OX 800MG, TAKEN TODAY BY PATIENT. PER MD, WILL INFORM DR. AUGUSTINE TO SEE PATIENT.
[2020-09-21 10:20] LABS: EOSINOPHILS % (MANUAL) 1 % (0-4); LYMPHOCYTES % (MANUAL) 71 % (16-48); MONOCYTES % (MANUAL) 12 % (0-11.0); NEUTROPHILS % (MANUAL) 16 (42-76)
[2020-09-21] MEDS ORDERED: Magnesium 1GM/D5W 100ML PREMIX 100 ML IV SCH (11:00)
[2020-09-21] MEDS: Magnesium 1GM/D5W 100ML PREMIX 100 ML IV SCH ×4 (11:42→14:57)
[2020-09-21] MEDS: DIGOXIN 0.125 MG TABLET PO SCH (12:12)
[2020-09-21] MEDS: NICOTINE PATCH (21MG) 21 MG PATCH.TD24 TD SCH (14:05)
--- NOTE | 2020-09-21 14:29 | NUR ---
RN NOTES RECEIVED CALL FROM DR. AUGUSTINE; PER MD, WILL FAX OVER NOTES FROM PREVIOUS MD OF PATIENT.
--- NOTE | 2020-09-21 18:52 | NUR ---
MS RN CLOSING NOTES PATIENT IS RESTING IN BED, ALERT AND ORIENTED X3, ABLE TO MAKE NEEDS KNOWN. HOB ELEVATED. BREATHING EVEN AND UNLABORED, ON O2 AT 3LPM VIA N/C, NO RESPIRATORY DISTRESS. IV LINE ON RIGHT FOREARM #22, INTACT AND PATENT. ALL DUE MEDS GIVEN TODAY. PATIENT KEPT COMFORTABLE. SAFETY PRECAUTIONS MAINTAINED: BED LOCKED AND ON LOWEST POSITION, SR UP X2, CALL LIGHT IN REACH. WILL ENDORSE TO BATTERY CHARGER TESTER RN FOR DEMIAN.
--- NOTE | 2020-09-21 19:39 | NUR ---
MS RN OPENING NOTE: Patient in bed awake, alert, and oriented x3. Patient able to make needs known. Patient breathing on 3L oxygen via nasal canula. No SOB or acute respiratory distress noted. Noted IV access on right forearm, 22 gauge, dressing dry and intact, no redness, or infiltration. Safety precaution is in place, bed is in the lowest level, bed is locked, alarm is on, side rails x2 are up, and call light is within reach. Will continue to monitor.
[2020-09-21 20:00] VITALS: BP 125/67
[2020-09-21 20:21] VITALS: BP 125/67
[2020-09-22 00:20] VITALS: BP 94/59
[2020-09-22 00:52] LABS: D-DIMER 4.24 mg/L(FEU (0.17-0.50)
[2020-09-22] MEDS: IPRATROPIUM NEB FS 0.5 MG/2.5 ML AMPUL.NEB NEB SCH ×3 (01:07→13:42)
[2020-09-22] MEDS: ALBUTEROL FS 2.5 MG/0.5 ML VIAL.NEB NEB SCH ×3 (01:08→13:42)
--- NOTE | 2020-09-22 02:37 | NUR ---
MS RN NOTE: New platelet result is 24. Made Noe YOO, aware. No new order at this time. Will continue to monitor.
[2020-09-22 03:16] VITALS: BP 104/60
[2020-09-22] MEDS: HYDROCODONE/APAP 5/325MG TABLET PO PRN (03:19)
--- NOTE | 2020-09-22 03:20 | NUR ---
MS RN NOTE: Patient complains of abdominal pain and describes pain as aching. Patient rates pain 7 on a 0-10 numerical scale. Administered PRN [place] per MD order. Will continue to monitor.
[2020-09-22 05:12] VITALS: BP 94/57
[2020-09-22] MEDS: METOPROLOL TARTRATE 50 MG TABLET PO SCH ×3 (05:13→11:12)
[2020-09-22 06:37] LABS: BASOPHILS % (AUTO) 0.9 % (0.0-2.0); HEMATOCRIT 23 % (39-51); HEMOGLOBIN 7.5 g/dL (13.5-17.5); LYMPHOCYTES # (AUTO) 1.7 /CMM (0.8-4.8); LYMPHOCYTES % (AUTO) 68.6 % (20.0-44.0); MEAN CORPUSCULAR HGB CONC 32 g/dl (31.0-36.0); MEAN CORPUSCULAR VOLUME 93 fL (80-96); MONOCYTES # (AUTO) 0.4 /CMM (0.1-1.30); NEUTROPHILS # (AUTO) 0.3 /CMM (1.8-8.9); NEUTROPHILS % (AUTO) 13.5 % (43.0-81.0); RED BLOOD CELL COUNT(AUTO) 2.48 MIL/uL (4.5-6.0); WHITE BLOOD COUNT (AUTO) 2.5 K/uL (4.3-11.0)
--- NOTE | 2020-09-22 06:39 | NUR ---
MS RN CLOSING NOTE: Patient sitting on side of bed, awake and alert. All needs met. Patient breathing well with no SOB or respiratory distress. Safety precaution in place, bed is in the lowest level, alarm is on, brakes are on, side rails x2 are up, and call light is within reach. Will endorse to next shift.
--- NOTE | 2020-09-22 06:39 | NUR ---
MS GAMEZ CLOSING NOTE: Patient in sleeping comfortably. All needs met. Patient breathing well with no SOB or respiratory distress. Safety precaution in place, bed is in the lowest level, alarm is on, brakes are on, side rails x2 are up, and call light is within reach. Will endorse to next shift. Addendum: 09/22/20 at 0640 by LORA MACK RN Wrong patient.
[2020-09-22 06:46] LABS: PLATELET COUNT (AUTO) 25 /CMM (150-450)
[2020-09-22 07:06] LABS: CALCIUM, SERUM 9.1 mg/dL (8.5-10.1); CREATININE 0.6 mg/dL (0.6-1.3); MAGNESIUM 1.7 mg/dL (1.8-2.4); POTASSIUM 4.5 mmol/L (3.5-5.1)
--- NOTE | 2020-09-22 07:30 | NUR ---
Patient in bed awake, alert, and oriented x3. Breathing unlabored on 3L oxygen via nasal canula. No SOB or acute respiratory distress noted. Noted IV access on right forearm, 22 g intact and patent flushing well. Safety precaution is in place, bed is in the lowest level, bed is locked, alarm is on, side rails x2 are up, and call light is within reach. Will continue to monitor.
[2020-09-22 08:00] VITALS: BP 101/45
[2020-09-22 08:35] LABS: EOSINOPHILS % (MANUAL) 2 % (0-4); LYMPHOCYTES % (MANUAL) 74 % (16-48); MONOCYTES % (MANUAL) 7 % (0-11.0); NEUTROPHILS % (MANUAL) 17 (42-76)
[2020-09-22] MEDS: LACTOBACILLUS RHAMNOSUS GG 1 EACH CAP.SPRINK PO SCH (08:35)
[2020-09-22] MEDS: ASCORBIC ACID 500 MG TABLET PO SCH (08:36)
[2020-09-22] MEDS: DILTIAZEM HCL CD 180 MG PO SCH (08:36)
[2020-09-22] MEDS: MAGNESIUM OXIDE 400 MG TABLET PO SCH (08:36)
[2020-09-22] MEDS: SODIUM CHLORIDE 1000 MG TABLET PO SCH ×2 (08:36→12:58)
[2020-09-22] MEDS: BISACODYL (5 MG) 5 MG TABLET.DR PO SCH (08:36)
[2020-09-22 11:12] VITALS: BP 105/54
[2020-09-22] MEDS: Magnesium 1GM/D5W 100ML PREMIX 100 ML IV SCH ×2 (11:12→12:23)
[2020-09-22] MEDS: DIGOXIN 0.125 MG TABLET PO SCH (12:58)
[2020-09-22] MEDS: NICOTINE PATCH (21MG) 21 MG PATCH.TD24 TD SCH (14:00)
[2020-09-22] MEDS: MORPHINE SULFATE INJ 4 MG/ML DISP.SYRIN IV PRN (14:56)
--- NOTE | 2020-09-22 15:27 | NUR ---
Patient cleared for d/c by . Patient is alert and oriented x3 , able to make needs known. Breathing unlabored and even on oxygen 3L saturation 95%. Patient d/c home with home health agency [facility]. Patient refused SNF placement. VS are stable HR within baseline. Skin is intact. All needs attended. Patient stated he will f/u with PCP and oncologist outpatient. Education provided , medication list provided. Patient verbalized understanding .Patient denies pain at this time. IV line removed and ID wrist band removed. Patient sighed valuable form and all belongings with the patient. Patient safely picked up by belen
[2020-09-22] MEDS ORDERED: LEVO500T90 PO (16:50)
== END 2020-09-22 16:25 | disposition home health service (06) | DRG 180 ==
LOC: ER 10:31 → TELE2 14:04 → TELE 09-18 16:43 → MED 09-20 11:16
PROVIDERS: ADMIT Internal Medicine; ATTEND Internal Medicine
PROC: 0W993ZZ Drainage of Right Pleural Cavity, Percutaneous Approach (ICD-10-PCS; principal; 2020-09-20)
DX: C34.90 Malignant neoplasm of unspecified part of unspecified bronchus or lung (principal); J96.21 Acute and chronic respiratory failure with hypoxia; E43 Unspecified severe protein-calorie malnutrition; K85.90 Acute pancreatitis without necrosis or infection, unspecified; I50.32 Chronic diastolic (congestive) heart failure; J91.0 Malignant pleural effusion; E22.2 Syndrome of inappropriate secretion of antidiuretic hormone; C79.9 Secondary malignant neoplasm of unspecified site; D61.818 Other pancytopenia; I48.91 Unspecified atrial fibrillation; I11.0 Hypertensive heart disease with heart failure; F17.200 Nicotine dependence, unspecified, uncomplicated; D72.829 Elevated white blood cell count, unspecified; E83.42 Hypomagnesemia; N20.0 Calculus of kidney; K42.9 Umbilical hernia without obstruction or gangrene; J44.9 Chronic obstructive pulmonary disease, unspecified; Z88.0 Allergy status to penicillin; Z79.01 Long term (current) use of anticoagulants; Z79.51 Long term (current) use of inhaled steroids; Z99.81 Dependence on supplemental oxygen; N28.89 Other specified disorders of kidney and ureter; E27.9 Disorder of adrenal gland, unspecified; I05.9 Rheumatic mitral valve disease, unspecified
CPT/HCPCS: 36415; 71045-TC; 80048-TC; 80053-TC; 80076-TC; 80162-TC; 81000-TC; 82728-TC; 83540-TC; 83605-TC; 83690-TC; 83735-TC; 83880; 84100-TC; 85025-TC; 85396; 85610-TC; 87040-TC; 87070-TC; 87081-TC; 89051-TC; 94799-TC; 97110-TC; 97116-TC; 97530-TC; G0378; J1160; J1940; J2270; J2405; J2543; J3475; J3490; J7030; J7060; U0003

== ENCOUNTER 2020-10-19 17:11 | Emergency (ER) | payer MEDICARE, OTHER ==
[~2020-10-19] VITALS: Ht 180.3 cm; Wt 98.0 kg
[~2020-10-19 17:11] MED LIST changes: +ASCO500C17 PO; +BISA-79 PO; -DEME150T13 PO; +DIGO250T PO; -Digoxin PO; +HYDR-4384 PO; -IBUP-51 PO; +IPRA4AER IH; -Ipratropium/Albuterol Sulfate IH; +LEVO500T90 PO; +LORA-259 PO; +MAGN400O6 PO; +MAGN400T8 PO; +ONDA4TAB11 PO; +SACC250C PO; +SIME80TA15 PO; +SODI100037 PO; +TOLV30TA PO; +ZOLP5TAB8 PO
[2020-10-19] MEDS ORDERED: ACETAMINOPHEN 325 MG TABLET PO ONE (18:00)
[2020-10-19] MEDS ORDERED: ACETAMINOPHEN ES 500 MG TABLET ONE (19:10)
[2020-10-19 19:18] VITALS: BP 112/65
--- NOTE | 2020-10-19 19:20 | NUR ---
Patient discharged to home in stable condition. Written and verbal after care instructions given. Patient verbalizes understanding of instruction. Assisted to waiting room via wheelchair where brother is waiting.
== END 2020-10-19 19:20 | disposition home or self-care (01) ==
LOC: ER 17:18
DX: L03.114 Cellulitis of left upper limb (principal); I10 Essential (primary) hypertension; J44.9 Chronic obstructive pulmonary disease, unspecified; Z85.118 Personal history of other malignant neoplasm of bronchus and lung; Z88.6 Allergy status to analgesic agent; Z79.899 Other long term (current) drug therapy; W01.0XXA Fall on same level from slipping, tripping and stumbling without subsequent striking against object, initial encounter; Y93.89 Activity, other specified; Y92.89 Other specified places as the place of occurrence of the external cause; Y99.8 Other external cause status
CPT/HCPCS: 73090-TC

== ENCOUNTER 2020-10-29 00:58 | Inpatient (IN) | payer MEDICARE, OTHER ==
[2020-10-29] VITALS (77 sets, daily range): BP systolic 62–140; BP diastolic 14–99
[~2020-10-29] VITALS: Ht 180.3 cm; Wt 97.5 kg
[2020-10-29] MEDS ORDERED: DILTIAZEM HCL 50 MG IV ONE ×2 (01:08→01:17)
--- NOTE | 2020-10-29 01:09 | NUR ---
PATIENT CAME TO ER BED 5 FROM HOME BIB RA C/O SOB. HX OF COPD. PATIENT IS BREATHING EVENLY AND UNLABORED ON 02 FACE MASK AT 8L AT 100% OXYGEN SATURATION. PATIENT IS AAOX4. CONNECTED TO THE COMPUTER DISCOVERY TEACHER.
[2020-10-29] MEDS ORDERED: DILTIAZEM HCL 50 MG IV IV ONE (01:30)
[2020-10-29] MEDS: DILTIAZEM HCL IV 125 MG in IV NS 0.9% 100 ML IV PRN ×3 (01:41→11:22)
--- NOTE | 2020-10-29 02:04 | NUR ---
move packet given to admitting.
--- NOTE | 2020-10-29 02:11 | NUR ---
BLOOD COLLECTED AND SENT TO THE LAB.
--- NOTE | 2020-10-29 02:12 | NUR ---
XRAY AT BEDSIDE
[2020-10-29 02:33] LABS: BASOPHILS # (AUTO) 0.1 /CMM (0.0-0.2); BASOPHILS % (AUTO) 0.4 % (0.0-2.0); EOSINOPHILS % (AUTO) 0.1 % (0.0-6.0); HEMATOCRIT 21 % (39-51); LYMPHOCYTES % (AUTO) 13.5 % (20.0-44.0); MEAN CORPUSCULAR HGB CONC 32 g/dl (31.0-36.0); MEAN CORPUSCULAR VOLUME 90 fL (80-96); MONOCYTES # (AUTO) 1.6 /CMM (0.1-1.30); MONOCYTES % (AUTO) 10.8 % (2.0-12.0); NEUTROPHILS % (AUTO) 75.2 % (43.0-81.0); RED BLOOD CELL COUNT(AUTO) 2.37 MIL/uL (4.5-6.0); WHITE BLOOD COUNT (AUTO) 14.6 K/uL (4.3-11.0)
[2020-10-29 02:40] LABS: CARBON DIOXIDE 34 mmol/L (21-32); CHLORIDE 94 mmol/L (98-107); CREATININE 0.6 mg/dL (0.6-1.3); GLUCOSE 151 mg/dL (74-106); SODIUM SERUM 137 mmol/L (136-145); UREA NITROGEN, BLOOD 12 mg/dL (7-18)
[2020-10-29 02:46] LABS: POTASSIUM 2.8 mmol/L (3.5-5.1)
[2020-10-29 02:53] LABS: ALANINE AMINOTRANSFERASE 36 U/L (12-78); ALBUMIN 2.6 g/dL (3.4-5.0); ALKALINE PHOSPHATASE 183 U/L (46-116); ASPARTATE AMINOTRANSFERASE 42 U/L (15-37); B-TYPE NATRIURETIC PEPTIDE 2453 PG/ML (0-125); BILIRUBIN,DIRECT 0.4 mg/dL (0.0-0.2); BILIRUBIN,TOTAL 0.7 mg/dL (0.2-1.0); TOTAL PROTEIN, SERUM 7.4 g/dL (6.4-8.2)
[2020-10-29] MEDS ORDERED: POTASSIUM CL. PREMIX PERIPHER. 50 ML ONE (02:59)
[2020-10-29] MEDS ORDERED: CEFTRIAXONE 1GM BAG (ER ONLY) 50 ML IV ONE (02:59)
[2020-10-29] MEDS ORDERED: POTASSIUM CHLORIDE 20 MEQ TAB.PRT.SR PO ONE ×2 (02:59→03:00)
[2020-10-29] MEDS ORDERED: POTASSIUM CHLORIDE 10 MEQ/50 ML PREMIXED IVPB FOR PERIPHERAL LINE IV ONE (03:00)
[2020-10-29] MEDS ORDERED: CEFTRIAXONE 1GM BAG (ER ONLY) 1 GM/50 ML PIGGYBACK IV ONE (03:00)
[2020-10-29] MEDS ORDERED: AZITHROMYCIN 500 MG in IV D5W 250 ML IV ONE (03:00)
--- NOTE | 2020-10-29 03:04 | NUR ---
PATIENT STATES ITCHINESS AT THE SITE OF ROCEPHIN ADMINISTRATION. NO C/O SOB. PATIENT IS AAOX4. NO OBSTRUCTION OF AIRWAY. MD NOTIFIED. WILL CONTINUE TO MONITOR PATIENT CLOSELY.
--- NOTE | 2020-10-29 03:15 | NUR ---
PATIENT IS NOT ITCHY.
[2020-10-29 03:19] LABS: HEMOGLOBIN 6.9 g/dL (13.5-17.5); PLATELET COUNT (AUTO) 32 /CMM (150-450)
[2020-10-29] MEDS ORDERED: AZITHROMYCIN 500 MG VIAL ONE (03:29)
--- NOTE | 2020-10-29 03:29 | NUR ---
called [facility] for panel admission, dr. mancia paged. waiting for call back
--- NOTE | 2020-10-29 03:34 | NUR ---
called rn sup for bed
--- NOTE | 2020-10-29 03:47 | NUR ---
PATIENT PULLED OUT IV LINE AT THE RIGHT WRIST 22G, PRESSURE APPLIED. NO ACTIVE BLEEDING.
[2020-10-29 03:50] LABS: BAND % (MANUAL) 2 % (0.0-5.0); LYMPHOCYTES % (MANUAL) 14 % (16-48); MONOCYTES % (MANUAL) 7 % (0-11.0); NEUTROPHILS % (MANUAL) 77 (42-76)
[2020-10-29] MEDS ORDERED: DILTIAZEM HCL 50 MG IV IV PRN (04:00)
[2020-10-29] MEDS ORDERED: MAG HYDROX/AL HYDROX/SIMETH 30 ML UDC PO PRN (04:00)
[2020-10-29] MEDS ORDERED: ZOLPIDEM TARTRATE 5 MG TABLET PO PRN (04:00)
[2020-10-29] MEDS ORDERED: MAGNESIUM HYDROXIDE 30 ML UDC PO PRN ×2 (04:00)
[2020-10-29] MEDS ORDERED: ACETAMINOPHEN 325 MG TABLET PO PRN (04:00)
[2020-10-29] MEDS ORDERED: Z GUARD REMEDY 2 OZ OINT TP PRN (04:00)
[2020-10-29] MEDS ORDERED: CEFTRIAXONE 1 G in IV D5W 50 ML IV SCH ×2 (04:00→09:00)
[2020-10-29] MEDS ORDERED: HYDROCODONE/APAP 5/325MG TABLET PO PRN (04:00)
[2020-10-29] MEDS ORDERED: SIMETHICONE 80 MG TAB.CHEW PO PRN (04:00)
--- NOTE | 2020-10-29 04:08 | NUR ---
2ND IV (22G) INITIATED ON THE LEFT UPPER ARM.
--- NOTE | 2020-10-29 04:26 | NUR ---
BLOOD CONSENT FORM SIGNED.
[2020-10-29] MEDS ORDERED: NICOTINE PATCH (21MG) 21 MG PATCH.TD24 TD SCH (04:31)
--- NOTE | 2020-10-29 04:32 | NUR ---
REPORT GIVEN TO CHRISTOFER GAMEZ AND ISELA RN FOR DEMIAN.
--- NOTE | 2020-10-29 04:36 | NUR ---
30MEQ OF POTASSIUM CHLORIDE IV ENDORSED TO ED RN AND CHRISTOFER RN IN ICU.
--- NOTE | 2020-10-29 05:00 | NUR ---
BOARD CERTIFIED MUSIC THERAPIST: RECEIVED PT FOR A. FIB WT RVR ON 8L 02 VIA FACE MASK. A/O X3. LABORED BREATHING NOTED. PT IS UNCOOPERATIVE AND KEEPS REMOVING FACE MASK. PT TEACHING DONE WT MINIMAL EFFECT. ON UNCONTROLLED A. FIB ON SPECTRAL SCIENTIST. ON CARDIZEM DRIP AT 10MG/HR. NO S/S OF IV INFILTRATION. AFEBRILE. REFUSED FULL BODY ASSESSMENT (ONLY ON UPPER BODY AND REFUSED TO HAVE PICTURES TAKEN ON THE UPPER BODY SCABS). HOB AT 90 DEGREES. BED IN LOWEST POSITION AND LOCKED, BED ALARM ACTIVATED. CALL LIGHT KEPT WITHIN REACH. WILL CONTINUE TO MONITOR.
[2020-10-29] MEDS ORDERED: DILTIAZEM HCL IV 125 MG in IV NS 0.9% 100 ML IV PRN (05:30)
[2020-10-29] MEDS: POTASSIUM CL. PREMIX PERIPHER. 50 ML IV SCH ×3 (05:56→08:24)
[2020-10-29] MEDS: MORPHINE SULFATE INJ 2 MG/ML DISP.SYRIN IV PRN ×3 (05:58→23:29)
--- NOTE | 2020-10-29 07:00 | NUR ---
TRAINING AND DEVELOPMENT DIRECTOR: STILL A. FIB WT RVR WT HR IN THE 130s. REFUSED LAB DRAW FOR TYPE AND CROSS SCREEN. EXPLAINED RISKS AND BENEFITS. TACO MAKER WILL COME BACK TO DRAW LAB. CONTINUED TO REFUSE FULL BODY ASSESSMENT. 2ND BAG OF 3 KCL RUNNING, CARDIZEM DRIP NOW AT 15MG/HR. ENDORSED TO STACY TO FOLLWO UP TYPE AND CROSS SCREEN, TO GIVE 1 UNIT PRBC, LOWER BODY ASSESSMENT, FLU VACCINE AND FOR CONTINUITY OF CARE.
--- NOTE | 2020-10-29 07:40 | NUR ---
ICU/RN PT IS SITTING ON THE BED ON SIMPLE MASK AT 8L.SAT O2-100%.RT SEEN THE PT SWITCH TO 3L N/C ,SAT O2-99%.V/S STABLE,AFEBRILE. A-FIB WITH RVR .HR-130 BPM.PT IS ON CARDIZEM DRIP.NO PAIN REPORTED AT THIS TIME.PT IS AWAKE,ALERT .GENERALIZED EDEMA PRESENT .PT USE URINAL.PERIFERAL IV.LABS REVIEW.K-2.8.PT IS RECEIVING KCL IV AT THIS TIME.CONTINUE TO MONITOR.
[2020-10-29] MEDS ORDERED: INFLUENZA VACCINE 2020-21 0.5 ML DISP.SYRIN IM ONE (08:00)
[2020-10-29] MEDS: SODIUM CHLORIDE 1000 MG TABLET PO SCH ×3 (08:30→17:00)
[2020-10-29] MEDS: BISACODYL (5 MG) 5 MG TABLET.DR PO SCH (08:30)
[2020-10-29] MEDS: MAGNESIUM OXIDE 400 MG TABLET PO SCH (08:30)
[2020-10-29] MEDS: NICOTINE PATCH (21MG) 21 MG PATCH.TD24 TD SCH (08:30)
[2020-10-29] MEDS: DILTIAZEM HCL CD 240 MG PO SCH (08:33)
[2020-10-29] MEDS ORDERED: APIXABAN 5 MG TABLET PO SCH (09:00)
[2020-10-29] MEDS ORDERED: TOLVAPTAN 30 MG PO SCH (09:00)
[2020-10-29] MEDS ORDERED: DIGOXIN 0.25 MG TABLET PO SCH (09:00)
--- NOTE | 2020-10-29 09:00 | NUR ---
ICU/RN DUE MEDS ARE GIVEN ORDERED.H/H-6.9.WAITING FOR PRBC.
--- NOTE | 2020-10-29 10:37 | NUR ---
RECEIVED REPORT FROM STACY GAMEZ
[2020-10-29 10:38] LABS: ABG BASE EXCESS 2.1 mmol/L; ABG OXYGEN SATURATION 96.2 % (92.0-98.5); ABG PCO2 45.3 mmHg (35.0-45.0); ABG PH 7.397 (7.350-7.450); ABG PO2 88.1 mmHg (75.0-100.0); AaDO2 94.3 mmHg; COHb 0.5 % (0.5-1.5); MetHb 0.2 % (0.0-1.5); O2Hb 95.5 % (94.0-97.0); SITE, ABG Left Radial; VENT MODE, BG NASAL CANNULA
--- NOTE | 2020-10-29 12:00 | NUR ---
PATIENT COMPLAINED OF BLE PAIN ACHING ASKED FOR MORPHINE. PAIN RAIN 07/04. INFORMED RISK OF DIFFICULTY OF BREATHING AFTER MORPHINE. OFFERED NORCO AND OR TYLENOL PATIENT REFUSED, INSISTED ON GETTING MORPHINE. ADMINISTERED. WILL REASSESS.
[2020-10-29] MEDS: DIGOXIN INJ 0.5 MG/2 ML AMPUL IV SCH ×3 (12:08→23:24)
[2020-10-29] MEDS: ONDANSETRON HCL/PF 4 MG/2 ML VIAL IVP PRN (13:02)
--- NOTE | 2020-10-29 13:05 | NUR ---
PATIENT WAS COMPLAINING OF NAUSEA AND VOMITING. WITNESSED VOMITING ONCE WITH ABOUT 60ML OF WHITE GREENISH SPUTUM. PER PATIENT HE ALREADY VOMITED TWICE ON THE FLOOR. UNABLE TO MEASURE BUT FOUND SMALL TOWELS COVERING THE SAID VOMIT. ADMINISTERED ZOFRAN IV ORDERED. DIGOXIN LEVEL OF THIS MORNING IS 0.6 (LOW) NOTIFIED MD.
--- NOTE | 2020-10-29 19:15 | NUR ---
PT BLLOD PRESSURE DROPS TO 81/50 AND 86/ 51 HR OF 83 STILL ON AFIB , REPORTED IT TO ONCALL DR GARCIA WITH ORDER TO DC THE CARDIZEM DRIP AND PUT HIM TO AMIODARONE DRIP IF HIS HR GOES TO 120 NOTED AND CARRIED OUT, PT IS AWAKE A/O X3 STILL ON BLOOD TRANSFUSION, NO TRANSFUSION REACTION NOTED AT THIS MOMENT TRANSFUSION REACTION SPO2 95% ON O2 4L VIA NC WILL CONT TO MONITOR
[2020-10-29] MEDS ORDERED: IPRATROPIUM NEB FS 0.5 MG/2.5 ML AMPUL.NEB NEB SCH (19:30)
[2020-10-29] MEDS: IPRATROPIUM BROMIDE 14 GM INHALER (or 12.9 GM) IH SCH (19:30)
--- NOTE | 2020-10-29 19:35 | NUR ---
RN CLOSING NOTE Patient in bed awake. Blood transfusion started at 1800. Tolerating well. Vital signs within normal limits. Complains of pain and difficulty breathing. O2 sat at 98% on NC 4L. Endorsed to shift engineer nurse.
--- NOTE | 2020-10-29 20:46 | NUR ---
REPORTED TO DR. GARCIA ABOUT THE LOWE BPOF THE PT LATEST IS 78/56 WITH ORDER TO START JAIME PER PROTOCOL NOTED AND CARRIED OUT, PT HR IS 91 SPO2 92% TEMP 97.8 STILL BLOOD TRANSFUSION ONGOING WILL CONT TO MONITOR
[2020-10-29] MEDS ORDERED: PHENYLEPHRINE 10 MG/ML VIAL ONE (21:00)
[2020-10-29] MEDS: PHENYLEPHRINE 100 MG in IV NS 0.9% 240 ML IV PRN (21:08)
--- NOTE | 2020-10-29 21:15 | NUR ---
TRANSFUSION OF 1PRBC COMPLETED WITH CURRENT V/S 86/51 HR 107 TEMP 97.8 SPO2 98% NO SIGN AND SYMPTOMS OF TRANSFUSION REACTION PT IS AWAKE A/O X3 JAIME WAS STARTED ALSO DUE TO EPISODE OF LOW BP WILL CONT TO MONITOR THE PT
[2020-10-30] VITALS (94 sets, daily range): BP systolic 79–136; BP diastolic 28–86
--- NOTE | 2020-10-30 00:10 | NUR ---
REPORTED TO CHARGE NURSE AND DR. GARCIA ABOUT THE 0ML OUTPUT OF THE PT SINCE 1899 WITH BLADDER SCAN PVR OF 50 ML,AND INTAKE OF 250ML, DR. GARCIA MADE NO NEW ORDER WILL CONT TO MONITOR THE PT
[2020-10-30] MEDS: IPRATROPIUM BROMIDE 14 GM INHALER (or 12.9 GM) IH SCH ×4 (01:22→20:20)
[2020-10-30] MEDS: ONDANSETRON HCL/PF 4 MG/2 ML VIAL IVP PRN (02:52)
--- NOTE | 2020-10-30 04:30 | NUR ---
PUT TO GERICHAIR BECAUSE PT DONT SLEEP ON THE BED HE KEEP ON GETTING UP AND SITTING ON THE EDGE OF THE BED, PT SEEMS COMFORTABLE IN JENI CHAIR FALL ASLEEP IMMEDIATELY WILL CONT TO MONITOR
[2020-10-30 05:27] LABS: HEMATOCRIT 26 % (39-51); LYMPHOCYTES # (AUTO) 1.4 /CMM (0.8-4.8); LYMPHOCYTES % (AUTO) 4.5 % (20.0-44.0); MEAN CORPUSCULAR HGB CONC 30 g/dl (31.0-36.0); MEAN CORPUSCULAR VOLUME 97 fL (80-96); MONOCYTES # (AUTO) 2.9 /CMM (0.1-1.30); MONOCYTES % (AUTO) 9.1 % (2.0-12.0); NEUTROPHILS # (AUTO) 27.2 /CMM (1.8-8.9); NEUTROPHILS % (AUTO) 86.4 % (43.0-81.0)
[2020-10-30 05:34] LABS: PLATELET COUNT (AUTO) 31 /CMM (150-450); WHITE BLOOD COUNT (AUTO) 31.5 K/uL (4.3-11.0)
[2020-10-30 05:49] LABS: ALBUMIN 2.7 g/dL (3.4-5.0); BILIRUBIN,TOTAL 2.3 mg/dL (0.2-1.0); CALCIUM, SERUM 7.8 mg/dL (8.5-10.1); CREATININE 2.7 mg/dL (0.6-1.3); POTASSIUM 5.8 mmol/L (3.5-5.1); TOTAL PROTEIN, SERUM 7.1 g/dL (6.4-8.2)
[2020-10-30 06:02] LABS: LYMPHOCYTES % (MANUAL) 5 % (16-48); MONOCYTES % (MANUAL) 9 % (0-11.0); NEUTROPHILS % (MANUAL) 86 (42-76)
[2020-10-30 06:14] LABS: MAGNESIUM 1.1 mg/dL (1.8-2.4); PHOSPHORUS 8.3 mg/dL (2.5-4.9)
--- NOTE | 2020-10-30 06:36 | NUR ---
REPORTED TO DR. GARCIA ABOUT THE CRITICAL VALUE OF PHOS 8.1 AND Mg OF 1.1 AND THE NO URINE OUTPUT OF THE PT WITH ORDER TO GIVE Mg 2g IV AND NEPHRO CONSULT NOTED AND CARRIED OUT
--- NOTE | 2020-10-30 07:30 | NUR ---
RN OPENING NOTES RECEIVED PT IN THE CHAIR. NO PAIN OR SOB OR RESPIRATORY DISTRESS NOTED AT THIS TIME . 4 L NASAL CANNULA SAT 95%.[facility] MIDLINE JAIME DRIP 1MCG AND LAC #18 IS INTACT , NO INFILTRATION OR INFECTION NOTED AT THIS TIME. BLOOD PRESSURE WNL. BLL EDEMA. DC OF CARDIZEM DRIP AND CARDIZEM TAB IS DC TOO PER DR THACKER.PT IS AFIB UNCONTROLLED. SAFETY MEASUREMENTS ARE IMPLEMENTED PER HOSPITAL POLICY. BED IS IN THE LOWEST POSITION. CALL LIGHT WITHIN THE PT REACH. WILL CONTINUE TO MONITOR.
[2020-10-30] MEDS: Magnesium 1GM/D5W 100ML PREMIX 100 ML IV SCH ×2 (07:45→08:42)
[2020-10-30] MEDS: NICOTINE PATCH (21MG) 21 MG PATCH.TD24 TD SCH (08:07)
[2020-10-30] MEDS: MAGNESIUM OXIDE 400 MG TABLET PO SCH (08:07)
[2020-10-30] MEDS: DILTIAZEM HCL CD 240 MG PO SCH (08:08)
[2020-10-30] MEDS: BISACODYL (5 MG) 5 MG TABLET.DR PO SCH (08:09)
[2020-10-30] MEDS: SODIUM CHLORIDE 1000 MG TABLET PO SCH ×3 (08:11→17:12)
--- NOTE | 2020-10-30 09:00 | NUR ---
RN NOTES DR YIN ORDER C DIFF COLLECTION OF THE STOOL. DR THACKER CANCELLED THE CARDIZEM TAB
[2020-10-30] MEDS ORDERED: ALBUMIN 25% 12.5 GM/50 ML BOTTLE IV ONE (09:30)
[2020-10-30] MEDS ORDERED: VANCOMYCIN 1.25 GM in IV D5W 250 ML IV ONE (10:00)
[2020-10-30] MEDS ORDERED: METRONIDAZOLE 500MG/ NS 100ML 500 MG in PREMIX 1 EA IV SCH ×2 (10:00→13:00)
[2020-10-30] MEDS: CEFEPIME 2 GM in IV D5W 100 ML IV SCH (10:36)
[2020-10-30 10:38] LABS: ALBUMIN 2.7 g/dL (3.4-5.0); BILIRUBIN,TOTAL 2.3 mg/dL (0.2-1.0); CALCIUM, SERUM 7.5 mg/dL (8.5-10.1)
[2020-10-30 10:42] LABS: POTASSIUM 6.2 mmol/L (3.5-5.1)
--- NOTE | 2020-10-30 11:30 | NUR ---
RN NOTES POTASSIUM IS 6.[address] YIN
--- NOTE | 2020-10-30 11:30 | NUR ---
RN NOTES INFORMED DR LOW THAT POTASSIUM IS 6.2 KAYXELINE ORDERED
[2020-10-30] MEDS ORDERED: VANCOMYCIN 500 MG in IV D5W 100ml IV ONE (12:00)
[2020-10-30] MEDS: METRONIDAZOLE 500MG/ NS 100ML 500 MG in PREMIX 1 EA IV SCH ×2 (12:23→20:18)
[2020-10-30] MEDS: PHENYLEPHRINE 100 MG in IV NS 0.9% 240 ML IV PRN (12:58)
[2020-10-30] MEDS ORDERED: SODIUM POLYSTYRENE SULFONATE 15 G/60 ML BOTTLE PO ONE (13:00)
[2020-10-30] MEDS: MORPHINE SULFATE INJ 2 MG/ML DISP.SYRIN IV PRN (15:38)
--- NOTE | 2020-10-30 15:38 | NUR ---
RN NOTES PT ASKED FOR MORPHINE STATES THAT HAS A PAIN OF 6 IN THE LEGS
[2020-10-30 16:04] LABS: CALCIUM, SERUM 7.2 mg/dL (8.5-10.1); POTASSIUM 4.8 mmol/L (3.5-5.1)
[2020-10-30 16:15] LABS: BILIRUBIN,URINE SMALL (NEGATIVE); COLOR,URINE YELLOW (YELLOW); LEUKOCYTE ESTERASE ,URINE NEGATIVE (NEGATIVE); NITRITE, URINE NEGATIVE (NEGATIVE); PROTEIN,URINE >=300 mg/dl (NEGATIVE); UGLUCOSE NEGATIVE (NEGATIVE); UROBILINOGEN,URINE 0.2 EU/dL (0.2)
[2020-10-30 16:30] LABS: BACTERIA,URINE 3+ /HPF (None Seen); HYALINE CASTS, URINE RARE /LPF (None Seen)
[2020-10-30 16:40] LABS: EOSINOPHIL,URINE None Seen
[2020-10-30 16:52] LABS: CREATININE, URINE 122.9 MG/DL (30.0-125.0)
[2020-10-30] MEDS: VANCOMYCIN HCL 125 MG/2.5 ML ORAL.SUSP PO SCH (18:05)
--- NOTE | 2020-10-30 18:28 | NUR ---
RN CLOSING NOTES PT IS RESTING IN THE BED. NO PAIN OR SOB OR RESPIRATORY DISTRESS NOTED AT THIS TIME . 4 L NASAL CANNULA SAT 94%.MERCY MIDLINE JAIME DRIP 1MCG AND LAC #18 IS INTACT , NO INFILTRATION OR INFECTION NOTED AT THIS TIME. BLOOD PRESSURE WNL. BLL EDEMA. DC OF CARDIZEM DRIP AND CARDIZEM TAB IS DC TOO PER DR THACKER.PT IS AFIB UNCONTROLLED. SAFETY MEASUREMENTS ARE IMPLEMENTED PER HOSPITAL POLICY. BED IS IN THE LOWEST POSITION AND LOCKED.RAILS ARE UP X2. CALL LIGHT WITHIN THE PT REACH. WILL ENDORSE TO PM NURSE FOR DEMIAN.
--- NOTE | 2020-10-30 19:05 | NUR ---
RN OPENING NOTES RECEIVED PT IN BED ASLEEP. AROUSABLE TO NAME AND TOUCH. PT IS A/O X 3. PT IS CURRENTLY ON NASAL CANNULA SATURATING 89-92% HX OF COPD. PT IS NOT EXPERIENCING ANY SHORTNESS OF BREATH OR RESPIRATORY DISTRESS AT THIS TIME. PT BREATHING IS EVEN AND UNLABORED. ON TELE MONITOR WITH AFIB, PT BASELINE/DX. CURRENT HEART RATE IS 89. IV SITE [facility] HAS JAIME RUNNING AT 1MG, BP WNL OF ORDERED PARAMETERS. LEFT AC IV SITE LEAKING. REMOVED, NO S/S OF BLEEDING NOTED. URINAL AT BED SIDE. PT DENIES PAIN AT THIS TIME. VERALIZES HE WOULD LIKE TO REST. SAFETY MEASURES IN PLACE. HOB ELEVATED. BED LOCKED IN LOWEST POSITION. BED ALARM ON. CALL LIGHT WITHIN REACH. WILL CONTINUE TO MONITOR.
--- NOTE | 2020-10-30 21:04 | NUR ---
PT HAS BEEN THROWING UP, MOSTLY LIQUID. PT AT THIS TIME DECLINES MEDICATION FOR N/V. EXPLAINED RISK AND BENEFITS X3. PT STILL REFUSES
[2020-10-30 22:17] LABS: D-DIMER > 35.20 mg/L(FEU (0.17-0.50)
--- NOTE | 2020-10-30 22:20 | NUR ---
CRITICAL LAB VALUE OF PLATELETS 27. RESULT GIVEN BY LOBITO FROM LAB. PT HAS BEEN TRENDING IN THIS DIRECTION OF HAVING LOW PLATELETS. DAVIDE YOO FOLLOWING. CHARGE NURSE MADE AWARE.
[2020-10-30 22:21] LABS: PLATELET COUNT (AUTO) 27 /CMM (150-450)
--- NOTE | 2020-10-30 23:58 | NUR ---
PER PT REQUEST FOR PAIN, MORPHINE PRN 2MG/1ML GIVEN. EDUCATED PT ON SIDE EFFECTS OF MORPHINE SUCH N/V. PT IS MADE AWARE AND VERBALIZES UNDERSTANDING, BUT STILL REQUESTS MOPRHINE FOR PAIN. PT O2 SATURATION IS AT 94% AT THIS TIME. CHARGE NURSE MADE AWARE. WILL CONTINUE TO CLOSELY MONITOR.
[2020-10-31] VITALS (106 sets, daily range): BP systolic 73–138; BP diastolic 26–93
[2020-10-31] MEDS: VANCOMYCIN HCL 125 MG/2.5 ML ORAL.SUSP PO SCH ×4 (00:05→19:29)
[2020-10-31] MEDS: MORPHINE SULFATE INJ 2 MG/ML DISP.SYRIN IV PRN ×2 (00:06→21:24)
[2020-10-31] MEDS: IPRATROPIUM BROMIDE 14 GM INHALER (or 12.9 GM) IH SCH ×5 (00:52→19:30)
--- NOTE | 2020-10-31 01:38 | NUR ---
PT RESTING AT THIS TIME. NEEDS ATTENDED. PARTIAL LINEN CHANGE. PT REFUSED BED BATH AT THIS TIME, WILL ASK AGAIN TO F/U. WILL CONTINUE TO MONITOR
--- NOTE | 2020-10-31 02:59 | NUR ---
PT HAD ONE BOWEL MOVEMENT, LOOSE. CDIFF SPECIMEN SENT. LAB WAS NOTIFIED
[2020-10-31] MEDS: METRONIDAZOLE 500MG/ NS 100ML 500 MG in PREMIX 1 EA IV SCH ×3 (04:37→20:31)
[2020-10-31 05:31] LABS: BASOPHILS % (AUTO) 0.1 % (0.0-2.0); EOSINOPHILS % (AUTO) 0.1 % (0.0-6.0); HEMATOCRIT 26 % (39-51); HEMOGLOBIN 8.2 g/dL (13.5-17.5); LYMPHOCYTES # (AUTO) 0.8 /CMM (0.8-4.8); MEAN CORPUSCULAR HGB CONC 32 g/dl (31.0-36.0); MEAN CORPUSCULAR VOLUME 91 fL (80-96); MONOCYTES # (AUTO) 1.3 /CMM (0.1-1.30); MONOCYTES % (AUTO) 7.9 % (2.0-12.0); NEUTROPHILS # (AUTO) 13.9 /CMM (1.8-8.9); NEUTROPHILS % (AUTO) 86.9 % (43.0-81.0); RED BLOOD CELL COUNT(AUTO) 2.82 MIL/uL (4.5-6.0)
[2020-10-31 05:33] LABS: PLATELET COUNT (AUTO) 28 /CMM (150-450)
[2020-10-31 05:53] LABS: BAND % (MANUAL) 4 % (0.0-5.0); LYMPHOCYTES % (MANUAL) 4 % (16-48); MONOCYTES % (MANUAL) 11 % (0-11.0); NEUTROPHILS % (MANUAL) 81 (42-76)
[2020-10-31 06:01] LABS: ALBUMIN 2.7 g/dL (3.4-5.0); BILIRUBIN,TOTAL 2.7 mg/dL (0.2-1.0); CALCIUM, SERUM 7.4 mg/dL (8.5-10.1); CREATININE 3.3 mg/dL (0.6-1.3); MAGNESIUM 1.8 mg/dL (1.8-2.4); POTASSIUM 5.5 mmol/L (3.5-5.1); TOTAL PROTEIN, SERUM 6.9 g/dL (6.4-8.2)
[2020-10-31 06:29] LABS: THYROID STIMULATING HORMONE 1.108 uIU/mL (0.358-3.74)
[2020-10-31 06:46] LABS: PHOSPHORUS 8.1 mg/dL (2.5-4.9)
--- NOTE | 2020-10-31 06:54 | NUR ---
RN CLOSING NOTES NO SIGNIFICANT CHANGES IS PT CONDITION. ASIDE FROM PT NOT GETTING MUCH REST DUE TO NAUSEA, PT REFUSED MEDICATION FOR IT. EXPLAINED TO PT SIDE EFFECT OF MORPHINE IS N/V PT UNDERSTOOD. PT STILL ON NASAL CANNULA SATURATING 89-92% PT IS NOT EXPERIENCING ANY SHORTNESS OF BREATH OR RESPIRATORY DISTRESS AT THIS TIME. PT BREATHING IS EVEN AND UNLABORED. ON TELE MONITOR WITH AFIB CONTROLLED, CURRENT HEART RATE IS 83. PT NPO ORDERED. IV SITE [facility] HAS JAIME RUNNING AT 0.4MG, BP WNL OF ORDERED PARAMETERS. PT DENIES PAIN AT THIS TIME. VERALIZES HE WOULD LIKE TO REST. SAFETY MEASURES IN PLACE. HOB ELEVATED. BED LOCKED IN LOWEST POSITION. WILL ENDORSE TO AM NURSE.
--- NOTE | 2020-10-31 07:50 | NUR ---
RN OPENING NOTES NO SIGNIFICANT CHANGES IN PT CONDITION. PT STILL ON NASAL CANNULA SATURATING 93-97% PT IS NOT EXPERIENCING ANY SHORTNESS OF BREATH OR RESPIRATORY DISTRESS AT THIS TIME. PT BREATHING IS EVEN AND UNLABORED. ON TELE MONITOR WITH AFIB CONTROLLED, CURRENT HEART RATE IS 83. PT NPO ORDERED. IV SITE [facility] HAS JAIME RUNNING AT 0.4MG, BP WNL OF ORDERED PARAMETERS. PT DENIES PAIN AT THIS TIME. SAFETY MEASUREMENTS ARE IMPLEMENTED PER HOSPITAL POLICY. HOB ELEVATED. BED LOCKED IS IN LOWEST POSITION AND SIDE RAILS ARE UP X2.CALL LIGHT WITHIN THE REACH. WILL CONTINUE TO MONITOR
[2020-10-31] MEDS: SODIUM CHLORIDE 1000 MG TABLET PO SCH ×3 (08:08→16:30)
[2020-10-31] MEDS: BISACODYL (5 MG) 5 MG TABLET.DR PO SCH (08:08)
[2020-10-31] MEDS: MAGNESIUM OXIDE 400 MG TABLET PO SCH (08:08)
[2020-10-31] MEDS: NICOTINE PATCH (21MG) 21 MG PATCH.TD24 TD SCH (08:08)
--- NOTE | 2020-10-31 08:30 | NUR ---
RN NOTES INFORMED DR YIN AND DR HUMPHREYS IN REGARDS CRITICAL VALUES OF THE PATIENT. ASK THE REASON FOR NPO DR YIN TOLD ME TO PUT HIM BACK TO CARDIAC DIET
--- NOTE | 2020-10-31 09:30 | NUR ---
RN NOTES TOOK HIM TO RADIOLOGY WITH [facility] FOR ABD AND X RAY
[2020-10-31] MEDS: CEFEPIME 2 GM in IV D5W 100 ML IV SCH (10:46)
--- NOTE | 2020-10-31 14:00 | NUR ---
RN NOTES PT IS RESTING IN BED NO S/S OF SOB OR DISTRESS NOTED
--- NOTE | 2020-10-31 15:56 | NUR ---
RN NOTES MARGUERITE CALLED FROM [facility] MRSA +
[2020-10-31] MEDS: PHENYLEPHRINE 100 MG in IV NS 0.9% 240 ML IV PRN (16:22)
--- NOTE | 2020-10-31 18:38 | NUR ---
RN CLOSING NOTES NO SIGNIFICANT CHANGES IN PT CONDITION. PT STILL ON NASAL CANNULA SATURATING 93-97% PT IS NOT EXPERIENCING ANY PAIN, ANY SHORTNESS OF BREATH OR RESPIRATORY DISTRESS AT THIS TIME. PT BREATHING IS EVEN AND UNLABORED. ON TELE MONITOR WITH AFIB CONTROLLED, CURRENT HEART RATE IS 90. PT IS BACK ON CARDIAC DIET PER DR YIN. IV SITE [facility] HAS JAIME RUNNING AT 0.4MG, BP WNL OF ORDERED PARAMETERS. SAFETY MEASUREMENTS ARE IMPLEMENTED PER HOSPITAL POLICY. HOB ELEVATED. BED LOCKED AND IS IN LOWEST POSITION, SIDE RAILS ARE UP X2 AND CALL LIGHT WITHIN THE PATIENT REACH. WILL ENDORSE TO PM NURSE FOR DEMIAN
--- NOTE | 2020-10-31 19:55 | NUR ---
RN OPENING NOTES,A RECEIVED PATIENT AWAKE A/O X 3, WANTED TO USE COMMODE AT THIS TIME, BREATHING EVEN AND UNLABORED, NO SOB/ACUTE DISTRESS NOTED AT THIS TIME, ON NASAL CANNULA 4LPM SATURATING 89-95%, AFIB CONTROLLED ON TELE MONITOR WITH HR IN LOW 100S AT THIS TIME, [facility] IN PLACE, JAIME RUNNING AT 0.4MCG, TO MAINTAIN BP, SAFETY MEASURES IN PLACE, HOB ELEVATED, BED LOCKED AND IN LOWEST POSITION,. S/R UP X2, BED ALARM ON, CALL LIGHT WITHIN REACH, WILL CONTINUE TO MONITOR CLOSELY.
[2020-10-31] MEDS: MUPIROCIN OINT 2% 22 GM TUBE NS SCH (20:31)
[2020-11-01] VITALS (83 sets, daily range): BP systolic 75–159; BP diastolic 37–105
[2020-11-01] MEDS: VANCOMYCIN 1 GM in IV D5W 250 ML IV SCH (00:14)
[2020-11-01] MEDS ORDERED: VANCOMYCIN 1.5 GM in IV D5W 500ml IV SCH (01:00)
[2020-11-01] MEDS: VANCOMYCIN HCL 125 MG/2.5 ML ORAL.SUSP PO SCH ×3 (01:08→11:45)
[2020-11-01] MEDS: IPRATROPIUM BROMIDE 14 GM INHALER (or 12.9 GM) IH SCH ×4 (01:30→20:16)
[2020-11-01] MEDS: METRONIDAZOLE 500MG/ NS 100ML 500 MG in PREMIX 1 EA IV SCH ×2 (04:52→11:44)
[2020-11-01 05:28] LABS: POTASSIUM 4.3 mmol/L (3.5-5.1)
--- NOTE | 2020-11-01 06:43 | NUR ---
RN CLOSING NOTES, RECEIVED PATIENT AWAKE A/O X 3, ASLEEP AT THIS TIME, AROUSES TO VERBAL STIMULI, BREATHING EVEN AND UNLABORED, NO SOB/ACUTE DISTRESS NOTED THROUGHOUT THE SHIFT, ON NASAL CANNULA 4LPM SATURATING 89-96%, AFIB CONTROLLED ON TELE MONITOR WITH HR 80S-110 DURING THE NIGHT, [facility] IN PLACE, JAIME RUNNING AT 0.2MCG, TO MAINTAIN BP, SAFETY MEASURES IN PLACE, NO SIGNIFICANT CHANGE IN CONDITION DURING THE NIGHT, WILL HAVE THORACENTESIS TODAY, HOB ELEVATED, BED LOCKED AND IN LOWEST POSITION, S/R UP X2, BED ALARM ON, CALL LIGHT WITHIN REACH, WILL ENDORSED TO ONCOMING NURSE FOR CONTINUITY OF CARE.
--- NOTE | 2020-11-01 07:46 | NUR ---
RN OPENING NOTES NO SIGNIFICANT CHANGES IN PT'S CONDITION. PT STILL ON NASAL CANNULA SATURATING 93-97% PT IS NOT EXPERIENCING ANY PAIN, OR ANY SHORTNESS OF BREATH OR RESPIRATORY DISTRESS AT THIS TIME. PT BREATHING IS EVEN AND UNLABORED. ON TELE MONITOR WITH AFIB . PT IS BACK ON CARDIAC DIET PER DR YIN. IV SITE [facility] HAS JAIME RUNNING AT 0.4MG, BP WNL OF ORDERED PARAMETERS. SAFETY MEASUREMENTS ARE IMPLEMENTED PER HOSPITAL POLICY. HOB ELEVATED. BED LOCKED AND IS IN LOWEST POSITION, SIDE RAILS ARE UP X2 AND CALL LIGHT WITHIN THE PATIENT REACH. WILL CONTINUE TO MONITOR
[2020-11-01] MEDS: MUPIROCIN OINT 2% 22 GM TUBE NS SCH ×2 (08:02→22:09)
[2020-11-01] MEDS: MAGNESIUM OXIDE 400 MG TABLET PO SCH (08:12)
[2020-11-01] MEDS: SODIUM CHLORIDE 1000 MG TABLET PO SCH ×3 (08:12→17:24)
[2020-11-01] MEDS: NICOTINE PATCH (21MG) 21 MG PATCH.TD24 TD SCH (08:12)
[2020-11-01 08:13] LABS: IMMUNOGLOBULIN A, SERUM 75 mg/dL (61-437); IMMUNOGLOBULIN G, SERUM 958 mg/dL (603-1613); IMMUNOGLOBULIN M, SERUM 582 mg/dL (20-172); PTH, INTACT 245 pg/mL (15-65)
[2020-11-01] MEDS: BISACODYL (5 MG) 5 MG TABLET.DR PO SCH (08:13)
--- NOTE | 2020-11-01 09:30 | NUR ---
RN NOTES DENISHA FOR THORACENTESIS CHECKED THE PATIENT IN REGARDS TO ACCESSING IF THERE IS ANY MASS IN THE RIGHT LUNG
--- NOTE | 2020-11-01 10:03 | NUR ---
RN NOTES LEFT MESSAGE [facility] FOR DR MCMILLAN THAT PT PL LEVEL IS 28L
[2020-11-01] MEDS: CEFEPIME 2 GM in IV D5W 100 ML IV SCH (10:18)
--- NOTE | 2020-11-01 10:52 | NUR ---
RN NOTES TALKED DR MCMILLAN IN REGARDS TO PT BEING OFF THE JAIME SINCE 9 AM WHAT WOULD BE THE PARAMETERS AND MAP >65 AND SYSTOLIC 90 AND KEEP HIN FOR 24 HOURS FOR CLOSE MONITORING
--- NOTE | 2020-11-01 12:00 | NUR ---
RN NOTES DENISHA CALLED BACK IN REGARDS TO NOT DOING THORACENTESIS DUE TO LOW PLATELETS LEVEL OF 28
--- NOTE | 2020-11-01 14:28 | NUR ---
SW CONSULT: SW consult requested for patient for possible homelessness. SW conducted a phone assessment with patient who is in the ICU od [facility]. Patient presents alert and oriented x4. Patient presented in agitated mood. Patient initially did not want to speak with a social media content manager but was cooperative with interview. Patient states he is residing at [facility] [id number] [place] [address] [address], [place] [address] ([phone]). Patient states that he has been staying at this hotel for about one week and his brother, Rebekah ([phone]) is living next door to him and is very supportive. Patient is very resourceful and shared that he uses the bus to transport. Patient shared with this social media content manager that he is battling cancer. Patient has good insight and judgement. Patient denies suicidal or homicidal ideation. Patient denies visual or auditory hallucinations. Patient denies smoking or substance use. 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 Patient is currently on SSI. SW provided homeless resource for 2019 homeless directory which provides information on locations for hot meals, sack lunches, food pantries, and showers. Patient was provided with [facility] and [facility]. Patient will sign the homeless waiver upon discharge, and copy was placed in the chart, and resources were given.
--- NOTE | 2020-11-01 15:00 | NUR ---
RN NOTES MARLENE CALLED KATI SEND ME THE PAPERS TO SIGN homeless waiver form due to pt being on MRSA isolation.
--- NOTE | 2020-11-01 15:08 | NUR ---
SW Note: This SW spoke with nurse Horowitz and asked her to sign homeless waiver form due to pt being on MRSA isolation.
[2020-11-01 17:02] LABS: *SPE A/G RATIO 0.7 (0.7-1.7); *SPE ALBUMIN 2.5 g/dL (2.9-4.4); *SPE ALPHA-1-GLOBULIN 0.5 g/dL (0.0-0.4); *SPE ALPHA-2-GLOBULIN 1.2 g/dL (0.4-1.0); *SPE BETA GLOBULIN 0.6 g/dL (0.7-1.3); *SPE GLOBULIN, TOTAL 3.7 g/dL (2.2-3.9); *SPE M-SPIKE Not Observed g/dL (Not Observed); *SPEGAMMA GLOBULIN 1.4 g/dL (0.4-1.8)
--- NOTE | 2020-11-01 18:55 | NUR ---
RN CLOSING NOTES NO SIGNIFICANT CHANGES IN PT'S CONDITION. PT STILL ON NASAL CANNULA SATURATING 93-97% PT IS NOT EXPERIENCING ANY PAIN, OR ANY SHORTNESS OF BREATH OR RESPIRATORY DISTRESS AT THIS TIME. PT BREATHING IS EVEN AND UNLABORED. ON TELE MONITOR WITH AFIB . PT IS BACK ON CARDIAC DIET PER DR YIN. NO JAIME RUNNING MAINTAINING OWN, BP WNL OF ORDERED PARAMETERS OF MAP 65 [address] SYSTOLIC [address] MCMILLAN. SAFETY MEASUREMENTS ARE IMPLEMENTED PER HOSPITAL POLICY. HOB ELEVATED. BED LOCKED AND IS IN LOWEST POSITION, SIDE RAILS ARE UP X2 AND CALL LIGHT WITHIN THE PATIENT .WILL ENDORSE TO PM NURSE FOR DEMIAN
--- NOTE | 2020-11-01 20:19 | NUR ---
RN OPENING NOTES PATIENT AWAKE A/O X2, BREATHING EVEN AND UNLABORED, NO SOB/ACUTE DISTRESS, ON NASAL CANNULA SATURATING 89-97%, TELE MONITOR WITH AFIB 90-120, PATIENT MOVING, S/P JAIME, MARTI MIDLINE IN PLACE, PATENT AND INTACT, SAFETY MEASUREMENTS IN PLACED, HOB ELEVATED, BED LOCKED AND IN LOWEST POSITION, SIDE RAILS ARE UP X, CALL LIGHT WITHIN REACH, WILL CONTINUE TO MONITOR CLOSELY.
[2020-11-02] VITALS (17 sets, daily range): BP systolic 87–153; BP diastolic 43–94
[2020-11-02] MEDS: IPRATROPIUM BROMIDE 14 GM INHALER (or 12.9 GM) IH SCH ×3 (01:30→13:43)
[2020-11-02 04:35] LABS: BASOPHILS % (AUTO) 0.1 % (0.0-2.0); EOSINOPHILS % (AUTO) 0.3 % (0.0-6.0); HEMATOCRIT 27 % (39-51); HEMOGLOBIN 8.8 g/dL (13.5-17.5); LYMPHOCYTES # (AUTO) 0.9 /CMM (0.8-4.8); LYMPHOCYTES % (AUTO) 10.3 % (20.0-44.0); MEAN CORPUSCULAR HGB CONC 32 g/dl (31.0-36.0); MEAN CORPUSCULAR VOLUME 90 fL (80-96); MONOCYTES # (AUTO) 1.1 /CMM (0.1-1.30); MONOCYTES % (AUTO) 12.3 % (2.0-12.0); NEUTROPHILS # (AUTO) 6.9 /CMM (1.8-8.9); PLATELET COUNT (AUTO) 52 /CMM (150-450); RED BLOOD CELL COUNT(AUTO) 3.02 MIL/uL (4.5-6.0)
[2020-11-02 04:54] LABS: ALBUMIN 2.5 g/dL (3.4-5.0); BILIRUBIN,TOTAL 3.9 mg/dL (0.2-1.0); CALCIUM, SERUM 7.4 mg/dL (8.5-10.1); POTASSIUM 3.9 mmol/L (3.5-5.1); TOTAL PROTEIN, SERUM 6.7 g/dL (6.4-8.2)
[2020-11-02 05:32] LABS: BAND % (MANUAL) 3 % (0.0-5.0); LYMPHOCYTES % (MANUAL) 5 % (16-48); NEUTROPHILS % (MANUAL) 83 (42-76)
[2020-11-02 05:33] LABS: MONOCYTES % (MANUAL) 8 % (0-11.0)
[2020-11-02 05:38] LABS: D-DIMER > 35.20 mg/L(FEU (0.17-0.50); PLATELET COUNT (AUTO) 52 /CMM (150-450)
--- NOTE | 2020-11-02 07:01 | NUR ---
RN CLOSING NOTES, PATIENT, ASLEEP AT THIS TIME, BEEN SITTING ON THE EDGE OF THE BED FOR LAST HOURS REFUSING TO LAY DOWN ON BED, HE URINATE ON THE FLOOR WITH EPISODES OF CONFUSION, REFUSING CARE AT TIMES, FINALLY CLEANED HIM UP AND PUT HIM ON BED, SLEEPING COMFORTABLE AT THIS TIME, AROUSES TO VERBAL STIMULI, BREATHING EVEN AND UNLABORED, NO SOB/ACUTE DISTRESS NOTED THROUGHOUT THE SHIFT, ON NASAL CANNULA 4LPM SATURATING 89-96%, AFIB CONTROLLED/UNCONTROLLED ON AND OFF, BUT PATIENT MOVING AND PULLING TUBINGS FOR THE LAST HOURS, MARTI IN PLACE, OFF JAIME SINCE YESTERDAY, SAFETY MEASURES IN PLACE, NO SIGNIFICANT CHANGE IN CONDITION DURING THE NIGHT, POSSIBLE THORACENTESIS TODAY, PLACELESS IMPROVED THIS MORNING TO 52, HOB ELEVATED, BED LOCKED AND IN LOWEST POSITION, S/R UP X2, BED ALARM ON, CALL LIGHT WITHIN REACH, WILL ENDORSED TO ONCOMING NURSE FOR CONTINUITY OF CARE.
--- NOTE | 2020-11-02 07:30 | NUR ---
RN OPENING NOTES PATIENT A/O X2, RESPIRATION IS EVEN AND UNLABORED. ON NASAL CANNULA SATURATING 98%, TELE MONITOR WITH AFIB 90-120, PATIENT MOVING, S/P JAIME, MARTI MIDLINE IN PLACE, PATENT AND INTACT, SAFETY MEASUREMENTS IN PLACED, HOB ELEVATED, BED LOCKED AND IN LOWEST POSITION, SIDE RAILS ARE UP X, CALL LIGHT WITHIN REACH, WILL CONTINUE TO MONITOR.
[2020-11-02] MEDS: MAGNESIUM OXIDE 400 MG TABLET PO SCH (09:43)
[2020-11-02] MEDS: NICOTINE PATCH (21MG) 21 MG PATCH.TD24 TD SCH (09:43)
[2020-11-02] MEDS: BISACODYL (5 MG) 5 MG TABLET.DR PO SCH (09:43)
[2020-11-02] MEDS: DILTIAZEM HCL CD 240 MG PO SCH (09:44)
[2020-11-02] MEDS: MUPIROCIN OINT 2% 22 GM TUBE NS SCH ×2 (09:45→21:50)
[2020-11-02] MEDS: SODIUM CHLORIDE 1000 MG TABLET PO SCH ×3 (09:45→17:00)
[2020-11-02] MEDS: CEFEPIME 2 GM in IV D5W 100 ML IV SCH (10:20)
--- NOTE | 2020-11-02 13:10 | NUR ---
NEUROPHYSIOLOGICAL TECHNICIAN NOTES PT LEFT THE FACILITY AND DISCHARGED TO [facility]IA [facility]. PT IN STABLE CONDITION. REPORT GIVEN TO CONY MAYEN). Addendum: 11/02/20 at 1446 by DONNIE BARRIENTOS RN ERROR IN DOCUMENTATION
[2020-11-02] MEDS: VANCOMYCIN 1 GM in IV D5W 250 ML IV SCH (13:26)
--- NOTE | 2020-11-02 15:25 | NUR ---
BEDSIDE REPORT GIVEN TO SOLANGE MAYEN) IN [address] [place] [address]
--- NOTE | 2020-11-02 15:25 | NUR ---
PT. BROUGHT TO RM.311-1.HOOKED UP TO TELE,AFIB RATE OF 107.SIDE RAILS UP CALL LIGHT WITHIN REACH.IMMEDIATELY TRYING TO GET OOB.VS TAKEN.SKIN WARM AND DRY,GROGGY.02 ON.
--- NOTE | 2020-11-02 18:00 | NUR ---
NO DINNER EATEN PT. VERY GROGGY.
[2020-11-03 00:30] VITALS: BP 137/70
[2020-11-03] MEDS: LORAZEPAM 1 MG TABLET PO PRN (03:09)
[2020-11-03 04:18] VITALS: BP 102/50
[2020-11-03 06:23] LABS: BASOPHILS % (AUTO) 0.5 % (0.0-2.0); EOSINOPHILS % (AUTO) 0.1 % (0.0-6.0); HEMATOCRIT 28 % (39-51); HEMOGLOBIN 9.1 g/dL (13.5-17.5); LYMPHOCYTES # (AUTO) 1.4 /CMM (0.8-4.8); LYMPHOCYTES % (AUTO) 15.5 % (20.0-44.0); MEAN CORPUSCULAR HGB CONC 33 g/dl (31.0-36.0); MEAN CORPUSCULAR VOLUME 90 fL (80-96); MONOCYTES # (AUTO) 1.5 /CMM (0.1-1.30); NEUTROPHILS # (AUTO) 6.3 /CMM (1.8-8.9); NEUTROPHILS % (AUTO) 67.9 % (43.0-81.0); PLATELET COUNT (AUTO) 71 /CMM (150-450); WHITE BLOOD COUNT (AUTO) 9.2 K/uL (4.3-11.0)
--- NOTE | 2020-11-03 06:42 | NUR ---
RN OPENING NOTES Received patient resting on bed, no respiratory distress noted. On tele monitor with controlled A-Fib noted. No s/sx of discomfort noted. Kept on bed clean, dry and comfortable. Will continue to monitor accordingly.
--- NOTE | 2020-11-03 06:46 | NUR ---
RN CLOSING NOTES Pt asleep, no new unusalities noted. All nursing needs attended, due meds given as ordered. Kept on bed clean, dry and comfortable. Endorsed.
[2020-11-03 07:13] LABS: CALCIUM, SERUM 8.2 mg/dL (8.5-10.1); CREATININE 3.9 mg/dL (0.6-1.3); POTASSIUM 3.3 mmol/L (3.5-5.1)
[2020-11-03] MEDS: IPRATROPIUM BROMIDE 14 GM INHALER (or 12.9 GM) IH SCH ×2 (07:35→19:30)
[2020-11-03 07:36] LABS: LYMPHOCYTES % (MANUAL) 11 % (16-48); MONOCYTES % (MANUAL) 6 % (0-11.0); NEUTROPHILS % (MANUAL) 83 (42-76)
--- NOTE | 2020-11-03 07:43 | NUR ---
CROWN PRESSER NOTE PATIENT IN BED RESTING COMFORTABLY. PATIENT IN NO ACUTE DISTRESS. NO SOB NOTED. PATIENT BREATHING IS EVEN AND UNLABORED. PATIENT ON CARDIAC MONITORING READING AFIB HR 113. PATIENT BED ALARM IS ON. SAFETY PRECAUTIONS IN PLACE. PATIENT BED IS LOCKED AND IN LOWEST POSITION. CALL LIGHT WITHIN REACH. WILL CONTINUE TO MONITOR.
[2020-11-03 08:00] VITALS: BP 108/71
--- NOTE | 2020-11-03 08:00 | NUR ---
INDUSTRIAL HYGENIST NOTE CALL FROM LAB FOR BUN [address]. [address] DR[address] MCMILLAN. SEEN AND EVALUATED PATIENT. NO NEW ORDERS AT THIS TIME.
[2020-11-03] MEDS: MAGNESIUM OXIDE 400 MG TABLET PO SCH (09:36)
[2020-11-03] MEDS: DILTIAZEM HCL CD 240 MG PO SCH (09:37)
[2020-11-03] MEDS: BISACODYL (5 MG) 5 MG TABLET.DR PO SCH (09:37)
[2020-11-03] MEDS: SODIUM CHLORIDE 1000 MG TABLET PO SCH ×3 (09:37→17:34)
[2020-11-03] MEDS: CEFEPIME 2 GM in IV D5W 100 ML IV SCH ×2 (09:38→09:51)
[2020-11-03] MEDS: NICOTINE PATCH (21MG) 21 MG PATCH.TD24 TD SCH (09:38)
[2020-11-03] MEDS: MUPIROCIN OINT 2% 22 GM TUBE NS SCH ×2 (09:40→22:28)
[2020-11-03] MEDS ORDERED: POTASSIUM CHLORIDE 20 MEQ TAB.PRT.SR PO ONE (11:00)
--- NOTE | 2020-11-03 11:20 | NUR ---
RN NOTE GAVE REPORT TO SHERI GAMEZ FOR DEMIAN. PATIENT IN NO ACUTE DISTRESS. NO SOB NOTED. PATIENT BREATHING IS EVEN AND UNLABORED. ENDORSED ALL CARE TO SHERI GAMEZ.
--- NOTE | 2020-11-03 11:21 | NUR ---
MS/RN Patient received Patient received from outgoing nurse Job.
--- NOTE | 2020-11-03 11:54 | NUR ---
Thoracentesis is postponed due to the high INR.
[2020-11-03 12:00] VITALS: BP 108/71
[2020-11-03 13:10] LABS: PLATELET COUNT (AUTO) 71 /CMM (150-450)
[2020-11-03 13:12] LABS: D-DIMER > 35.20 mg/L(FEU (0.17-0.50)
--- NOTE | 2020-11-03 14:00 | NUR ---
MS/RN Consent Patient's brother Jose C called to obtain telephone consent for thoracentesis tomorrow. Consent form signed by two RN's and placed in front of chart.
[2020-11-03 16:00] VITALS: BP 107/63
--- NOTE | 2020-11-03 18:35 | NUR ---
MS/RN End note Patient remains in stable condition. Will endorse to spooling machine operator.
--- NOTE | 2020-11-03 19:21 | NUR ---
HEAD SCHOOL CUSTODIAN: CONTINUITY OF CARE Patient in bed, awake but eyes closed. Oxygen via NC removed by patient himself, denies SOB. Turned and repositioned, uncooperative with repositioning. MARTI midline intact, dressing clean and dry. Fall precaution maintained.
[2020-11-03 20:00] VITALS: BP 108/68
[2020-11-04] MEDS: IPRATROPIUM BROMIDE 14 GM INHALER (or 12.9 GM) IH SCH (01:30)
[2020-11-04] MEDS: LORAZEPAM 1 MG TABLET PO PRN (01:32)
--- NOTE | 2020-11-04 01:36 | NUR ---
HOT DIE PICKER: ANXIOUS Patient removing leads for Tele monitor, declined education. Restless at times, confused. PRN Ativan given, fall precaution maintained.
[2020-11-04 04:30] VITALS: BP 116/84
--- NOTE | 2020-11-04 06:11 | NUR ---
PIPE ORGAN INSTALLER: END OF SHIFT REPORT Afib controlled with PVC HR 91 in the Tele monitor. Oxygen sat in Mid 90's on Oxygen at 2L via NC. Patient uncooperative with hygiene, repositioning, restless at times. Able to calm down with PRN Ativan. MARTI Midline intact. On IV Vancomycin and Cefepime, Afebrile. Plan for Thoracentesis. Fall precaution maintained. Will endorse to oncoming RN.
[2020-11-04 07:39] LABS: BASOPHILS # (AUTO) 0.1 /CMM (0.0-0.2); BASOPHILS % (AUTO) 0.7 % (0.0-2.0); EOSINOPHILS % (AUTO) 0.1 % (0.0-6.0); HEMATOCRIT 25 % (39-51); HEMOGLOBIN 8.1 g/dL (13.5-17.5); LYMPHOCYTES % (AUTO) 13.5 % (20.0-44.0); MEAN CORPUSCULAR HGB CONC 32 g/dl (31.0-36.0); MEAN CORPUSCULAR VOLUME 93 fL (80-96); MONOCYTES # (AUTO) 1.5 /CMM (0.1-1.30); MONOCYTES % (AUTO) 19.3 % (2.0-12.0); NEUTROPHILS # (AUTO) 5.2 /CMM (1.8-8.9); NEUTROPHILS % (AUTO) 66.4 % (43.0-81.0); PLATELET COUNT (AUTO) 91 /CMM (150-450); RED BLOOD CELL COUNT(AUTO) 2.74 MIL/uL (4.5-6.0); WHITE BLOOD COUNT (AUTO) 7.8 K/uL (4.3-11.0)
--- NOTE | 2020-11-04 07:40 | NUR ---
RN OPENING NOTE Patient is resting in bed, A/O x1, lethargic, responds to name and touch, saturating 95% ON 2l nc. IV line is clean and intact flushing well. Bed is in lowest position, side rails x2 in upright position, bed alarm on, fall safety and aspiration precautions enforced. Will continue with plan of care.
[2020-11-04 07:51] LABS: CREATININE 3.6 mg/dL (0.6-1.3); POTASSIUM 3.2 mmol/L (3.5-5.1)
[2020-11-04 08:00] VITALS: BP 102/57
[2020-11-04 08:10] LABS: CALCIUM, SERUM 8.5 mg/dL (8.5-10.1)
[2020-11-04] MEDS: IPRATROPIUM NEB FS 0.5 MG/2.5 ML AMPUL.NEB HHN SCH ×3 (08:12→19:55)
[2020-11-04 08:13] LABS: D-DIMER > 35.20 mg/L(FEU (0.17-0.50)
[2020-11-04 08:15] LABS: PLATELET COUNT (AUTO) 91 /CMM (150-450)
[2020-11-04] MEDS: NICOTINE PATCH (21MG) 21 MG PATCH.TD24 TD SCH (08:57)
[2020-11-04] MEDS: SODIUM CHLORIDE 1000 MG TABLET PO SCH ×3 (08:57→16:30)
[2020-11-04] MEDS: BISACODYL (5 MG) 5 MG TABLET.DR PO SCH (08:57)
[2020-11-04] MEDS: DILTIAZEM HCL CD 240 MG PO SCH (08:58)
[2020-11-04] MEDS: MAGNESIUM OXIDE 400 MG TABLET PO SCH (08:58)
[2020-11-04] MEDS: MUPIROCIN OINT 2% 22 GM TUBE NS SCH ×2 (09:02→20:30)
[2020-11-04 09:56] LABS: NEUTROPHILS % (MANUAL) 77 (42-76)
[2020-11-04 09:57] LABS: LYMPHOCYTES % (MANUAL) 11 % (16-48); MONOCYTES % (MANUAL) 12 % (0-11.0)
[2020-11-04] MEDS: CEFEPIME 2 GM in IV D5W 100 ML IV SCH (10:48)
--- NOTE | 2020-11-04 11:44 | NUR ---
RN NOTE s/p bedside US thoracentesis, 1000cc clear yellow fluid out. CXR confirmed no evidence of pneumothorax. Patient in no acute distress, sleeping in bed. Will continue with plan of care.
[2020-11-04] MEDS: VANCOMYCIN 1 GM in IV D5W 250 ML IV SCH (13:16)
[2020-11-04 16:00] VITALS: BP 123/77
--- NOTE | 2020-11-04 19:01 | NUR ---
RN CLOSING NOTE Patient is resting in bed, A/O x1, more awake at this time, but still sleeping most of the day, responds to name and touch, saturating 95% ON 2l nc. IV line is clean and intact flushing well. All patient needs met, all due medications given, patient kept clean and dry, skin protection measures implemented, turned and repositioned. Bed is in lowest position, side rails x2 in upright position, bed alarm on, fall safety and aspiration precautions enforced. Will endorse to shift supervisor film processing for DEMIAN.
--- NOTE | 2020-11-04 19:05 | NUR ---
ANIMAL CARETAKER SUPERVISOR OPENING NOTES RECEIVED PATIENT IN BED SLEEPING, OPENS EYES RESPONDS TO TACTILE STIMULI, ON 2 L VIA NC AT THIS TIME TOLERATING WELL, ON KILN DRAWER A.FIB 110, NO DISTRESS PRESENT, LEFT UPPER ARM MIDLINE INTACT AND PATENT, NO REDNESS, NO INFILTRATION PRESENT, ORIENTED TO STAFF AND CALL LIGHT AND KEPT WITHIN REACH, HOB ELEVATED, HEELS FLOATED ,LOW BED AND LOCKED, BED ALARM IN PLACE ,WILL CONTINUE TO MONITOR AND ATTEND TO NEEDS.
[2020-11-04 20:00] VITALS: BP 139/72
--- NOTE | 2020-11-04 20:45 | NUR ---
SUPERVISOR DISPLAY FABRICATION NOTES NOTED SP02 ON 2 L VIA NC AT 90%. RESPONSIVE OPENS EYES, CALLED RT REQUESTED FOR RT TREATMENT.
--- NOTE | 2020-11-04 21:21 | NUR ---
BIOLOGICAL SCIENTIST NOTES SP02 92% AT THIS TIME.
[2020-11-04 23:36] VITALS: BP 140/66
[2020-11-05] VITALS: BP 126/69
[2020-11-05] MEDS: IPRATROPIUM NEB FS 0.5 MG/2.5 ML AMPUL.NEB HHN SCH ×4 (01:53→19:47)
[2020-11-05 04:00] VITALS: BP 125/77
--- NOTE | 2020-11-05 06:34 | NUR ---
TEXTILE COLORIST FORMULATOR CLOSING NOTES PATIENT IN BED SLEEPING, OPENS EYES RESPONDS TO TACTILE AND VERBAL STIMULI, ON 2 L VIA NC AT THIS TIME TOLERATING WELL 02 SAT 92-93%, NO DISTRESS PRESENT, ON FABRICATOR FOAM RUBBER A.FIB 93, NO DISTRESS PRESENT, LEFT UPPER ARM MIDLINE INTACT AND PATENT, NO REDNESS, NO INFILTRATION PRESENT, DRESSING IS C/D/I. CALL LIGHT KEPT WITHIN REACH, HOB ELEVATED, HEELS FLOATED , SKIN CARE DONE SKIN LOTION APPLIED, LOW BED AND LOCKED, BED ALARM IN PLACE ,WILL CONTINUE TO MONITOR AND ATTEND TO NEEDS AND ENDORSE TO NEXT SHIFT.
[2020-11-05 08:00] VITALS: BP 128/90
--- NOTE | 2020-11-05 08:00 | NUR ---
RN OPENING NOTE Patient is resting in bed, A/O x1, responds to name and touch by moaning, saturating 92% ON 2l nc. IV line is clean and intact flushing well. Tele monitor A-fib 100s. Bed is in lowest position, side rails x2 in upright position, bed alarm on, fall safety and aspiration precautions enforced. Will continue with plan of care.
[2020-11-05 08:25] LABS: BASOPHILS # (AUTO) 0.1 /CMM (0.0-0.2); EOSINOPHILS % (AUTO) 0.1 % (0.0-6.0); HEMATOCRIT 31 % (39-51); HEMOGLOBIN 9.5 g/dL (13.5-17.5); LYMPHOCYTES # (AUTO) 0.7 /CMM (0.8-4.8); LYMPHOCYTES % (AUTO) 12.8 % (20.0-44.0); MEAN CORPUSCULAR HGB CONC 31 g/dl (31.0-36.0); MEAN CORPUSCULAR VOLUME 94 fL (80-96); MONOCYTES # (AUTO) 1.2 /CMM (0.1-1.30); MONOCYTES % (AUTO) 21.8 % (2.0-12.0); NEUTROPHILS # (AUTO) 3.5 /CMM (1.8-8.9); NEUTROPHILS % (AUTO) 64.3 % (43.0-81.0); PLATELET COUNT (AUTO) 102 /CMM (150-450); RED BLOOD CELL COUNT(AUTO) 3.23 MIL/uL (4.5-6.0); WHITE BLOOD COUNT (AUTO) 5.4 K/uL (4.3-11.0)
[2020-11-05] MEDS: SODIUM CHLORIDE 1000 MG TABLET PO SCH ×2 (09:03→12:21)
[2020-11-05] MEDS: DILTIAZEM HCL CD 240 MG PO SCH (09:03)
[2020-11-05] MEDS: BISACODYL (5 MG) 5 MG TABLET.DR PO SCH (09:03)
[2020-11-05] MEDS: MAGNESIUM OXIDE 400 MG TABLET PO SCH (09:03)
[2020-11-05] MEDS: NICOTINE PATCH (21MG) 21 MG PATCH.TD24 TD SCH (09:04)
[2020-11-05] MEDS: MUPIROCIN OINT 2% 22 GM TUBE NS SCH ×2 (09:04→21:18)
[2020-11-05] MEDS: CEFEPIME 2 GM in IV D5W 100 ML IV SCH (09:08)
[2020-11-05 09:36] LABS: ALBUMIN 2.3 g/dL (3.4-5.0); BILIRUBIN,TOTAL 1.9 mg/dL (0.2-1.0); CALCIUM, SERUM 9.1 mg/dL (8.5-10.1); CREATININE 3.1 mg/dL (0.6-1.3); TOTAL PROTEIN, SERUM 6.6 g/dL (6.4-8.2)
[2020-11-05] MEDS ORDERED: POTASSIUM CHLORIDE 20 MEQ TAB.PRT.SR PO ONE (14:00)
[2020-11-05 16:00] VITALS: BP 96/56
--- NOTE | 2020-11-05 19:00 | NUR ---
RN CLOSING NOTE Patient is resting in bed, A/O x1, responds to name and touch by moaning, saturating 92% ON 2l nc. IV line is clean and intact flushing well. All patient needs met, all due medications given, patient kept clean and dry throughout shift. Skin protection measures implemented, patient turned and repositioned. Bed is in lowest position, side rails x2 in upright position, bed alarm on, fall safety and aspiration precautions enforced. Will endorse to police shift commander for DEMIAN.
--- NOTE | 2020-11-05 19:38 | NUR ---
MS RN NOTE: RECEIVED PT IN BED RESTING. A/O X 1. SATURATING AT 92% 2 LITERS NC. BED IN LOW POSITION. AND LOCKED. WILL CONTINUE TO MONITOR
[2020-11-05 20:00] VITALS: BP 121/65
[2020-11-06] MEDS: IPRATROPIUM NEB FS 0.5 MG/2.5 ML AMPUL.NEB HHN SCH ×4 (01:01→19:42)
[2020-11-06 08:00] VITALS: BP 108/83
[2020-11-06] MEDS: NICOTINE PATCH (21MG) 21 MG PATCH.TD24 TD SCH (09:48)
[2020-11-06] MEDS: MAGNESIUM OXIDE 400 MG TABLET PO SCH (09:48)
[2020-11-06] MEDS: DILTIAZEM HCL CD 240 MG PO SCH (09:50)
[2020-11-06] MEDS: BISACODYL (5 MG) 5 MG TABLET.DR PO SCH (09:50)
[2020-11-06] MEDS: CEFEPIME 2 GM in IV D5W 100 ML IV SCH (09:51)
[2020-11-06] MEDS: MUPIROCIN OINT 2% 22 GM TUBE NS SCH ×2 (09:53→20:14)
[2020-11-06 13:12] LABS: BASOPHILS % (AUTO) 0.5 % (0.0-2.0); EOSINOPHILS % (AUTO) 0.4 % (0.0-6.0); HEMATOCRIT 31 % (39-51); HEMOGLOBIN 9.6 g/dL (13.5-17.5); LYMPHOCYTES # (AUTO) 0.9 /CMM (0.8-4.8); LYMPHOCYTES % (AUTO) 19.3 % (20.0-44.0); MEAN CORPUSCULAR HGB CONC 31 g/dl (31.0-36.0); MEAN CORPUSCULAR VOLUME 94 fL (80-96); MONOCYTES % (AUTO) 21.7 % (2.0-12.0); NEUTROPHILS # (AUTO) 2.8 /CMM (1.8-8.9); NEUTROPHILS % (AUTO) 58.1 % (43.0-81.0); PLATELET COUNT (AUTO) 83 /CMM (150-450); RED BLOOD CELL COUNT(AUTO) 3.25 MIL/uL (4.5-6.0); WHITE BLOOD COUNT (AUTO) 4.8 K/uL (4.3-11.0)
[2020-11-06] MEDS: VANCOMYCIN 1 GM in IV D5W 250 ML IV SCH ×2 (15:01→16:41)
[2020-11-06 16:00] VITALS: BP 126/66
[2020-11-06 16:11] LABS: CALCIUM, SERUM 9.1 mg/dL (8.5-10.1); CREATININE 2.7 mg/dL (0.6-1.3); POTASSIUM 2.9 mmol/L (3.5-5.1)
--- NOTE | 2020-11-06 16:27 | NUR ---
RN NOTE CBC BMP just resulted. Notified Anthony KWAN and received T.O for 60 meq IVPB and IVD D5W @100ml/hr PRN. Orders repeated back and will carry out.
[2020-11-06] MEDS: POTASSIUM CL. PREMIX PERIPHER. 50 ML IV SCH ×5 (17:42→23:01)
[2020-11-06] MEDS: IV D5W 1,000 ML IV PRN (17:47)
--- NOTE | 2020-11-06 19:17 | NUR ---
RN CLOSING NOTE Patient is resting in bed, A/O x1, responds to name and touch by moaning, saturating 92% ON 2l nc. IV line is clean and intact flushing well. All patient needs met, all due medications given, patient kept clean and dry throughout shift. Skin protection measures implemented, patient turned and repositioned. Bed is in lowest position, side rails x2 in upright position, bed alarm on, fall safety and aspiration precautions enforced. Patient is running potassium replacement at this time. 2 bags given, will endorse to give the remaining 4 bags. Will endorse to night supervisor for DEMIAN.
--- NOTE | 2020-11-06 19:20 | NUR ---
MS RN OPENING NOTES PATIENT SLEEPING IN BED. A/OX1. ON 2L NC; NO S/S OF ACUTE RESPIRATORY DISTRESS; BREATHING IS EVEN AND UNLABORED. NO S/S OF PAIN NOTED. MIDLINE PRESENT ON LEFT UPPER ARM, INTACT & PATENT WITH KCL 10 MEQ RUNNING AT 50 ML/HR. SAFETY MEASURES IN PLACE AND PATIENT'S NEEDS MET. BED LOCKED, HOB ELEVATED, ALARM ON, SIDE RAILS X3, CALL LIGHT WITHIN REACH. WILL CONTINUE TO MONITOR.
[2020-11-06 20:00] VITALS: BP 133/77
[2020-11-07] MEDS: POTASSIUM CL. PREMIX PERIPHER. 50 ML IV SCH (00:03)
[2020-11-07] MEDS: IPRATROPIUM NEB FS 0.5 MG/2.5 ML AMPUL.NEB HHN SCH ×4 (01:27→19:42)
[2020-11-07 06:35] LABS: BASOPHILS % (AUTO) 0.6 % (0.0-2.0); EOSINOPHILS % (AUTO) 0.4 % (0.0-6.0); HEMATOCRIT 31 % (39-51); LYMPHOCYTES # (AUTO) 1.1 /CMM (0.8-4.8); LYMPHOCYTES % (AUTO) 20.6 % (20.0-44.0); MEAN CORPUSCULAR HGB CONC 32 g/dl (31.0-36.0); MEAN CORPUSCULAR VOLUME 94 fL (80-96); MONOCYTES # (AUTO) 1.4 /CMM (0.1-1.30); MONOCYTES % (AUTO) 25.5 % (2.0-12.0); NEUTROPHILS # (AUTO) 2.9 /CMM (1.8-8.9); NEUTROPHILS % (AUTO) 52.9 % (43.0-81.0); PLATELET COUNT (AUTO) 72 /CMM (150-450); RED BLOOD CELL COUNT(AUTO) 3.36 MIL/uL (4.5-6.0); WHITE BLOOD COUNT (AUTO) 5.4 K/uL (4.3-11.0)
[2020-11-07 06:47] LABS: CALCIUM, SERUM 9.1 mg/dL (8.5-10.1); CREATININE 2.4 mg/dL (0.6-1.3); POTASSIUM 3.1 mmol/L (3.5-5.1)
--- NOTE | 2020-11-07 07:55 | NUR ---
Ms RN OPENING NOTES PATIENT RESTING COMFORTABLY IN BED. A/OX1. ON 2L NC; NO S/S OF ACUTE RESPIRATORY DISTRESS; BREATHING IS EVEN AND UNLABORED. NO S/S OF PAIN NOTED. MIDLINE PRESENT ON LEFT UPPER ARM, INTACT & PATENT. SAFETY MEASURES IN PLACE AND PATIENT'S NEEDS MET. BED LOCKED, HOB ELEVATED, ALARM ON, SIDE RAILS X3, CALL LIGHT WITHIN REACH. ENDORSED TO DAY SHIFT RN PLAN OF CARE. Addendum: 11/07/20 at 0853 by KATE HARDY RN MS RN CLOSING NOTES
[2020-11-07] MEDS: NICOTINE PATCH (21MG) 21 MG PATCH.TD24 TD SCH (08:37)
[2020-11-07] MEDS: DILTIAZEM HCL CD 240 MG PO SCH (08:40)
[2020-11-07] MEDS: MUPIROCIN OINT 2% 22 GM TUBE NS SCH (08:40)
[2020-11-07] MEDS: MAGNESIUM OXIDE 400 MG TABLET PO SCH (08:41)
[2020-11-07] MEDS: BISACODYL (5 MG) 5 MG TABLET.DR PO SCH (08:41)
[2020-11-07] MEDS: CEFEPIME 2 GM in IV D5W 100 ML IV SCH (09:13)
[2020-11-07 09:51] LABS: BAND % (MANUAL) 8 % (0.0-5.0); EOSINOPHILS % (MANUAL) 2 % (0-4); LYMPHOCYTES % (MANUAL) 10 % (16-48); MONOCYTES % (MANUAL) 22 % (0-11.0); NEUTROPHILS % (MANUAL) 58 (42-76)
[2020-11-07] MEDS ORDERED: POTASSIUM CHLORIDE 20 MEQ TAB.PRT.SR PO SCH (11:00)
--- NOTE | 2020-11-07 11:58 | NUR ---
SW contacted Wanakena with [facility] as patient is a [facility] participant. Wanakena could not provide this SW with patient's CM information however informed this SW that patient's CM would reach out regarding more information.
--- NOTE | 2020-11-07 12:00 | NUR ---
This SW received a call from TIARA Bales from [facility] regarding this patient. Per TIARA Bales, patient remains in the [facility] system however patient may be exited soon. SW to plan with TIARA Bales regarding place of discharge if patient cannot return to [facility] at [facility]. SW remains available for all needs regarding this patient.
[2020-11-07 13:13] VITALS: BP 115/62
[2020-11-07 16:00] VITALS: BP 132/81
--- NOTE | 2020-11-07 16:47 | NUR ---
m/s machinist mate: nephro f/u seen by dr. vang with orders. orders acknowledged. r.t. at bedside for abg draw at this time.
[2020-11-07 17:13] LABS: ABG BASE EXCESS 12.9 mmol/L; ABG OXYGEN SATURATION 94.7 % (92.0-98.5); ABG PCO2 46.3 mmHg (35.0-45.0); ABG PO2 74.1 mmHg (75.0-100.0); AaDO2 70.9 mmHg; COHb 1.2 % (0.5-1.5); O2Hb 93.6 % (94.0-97.0); SITE, ABG Right Radial
--- NOTE | 2020-11-07 17:18 | NUR ---
m/s ug designer: notes abg resulted and dr. kimball aware per r.t. with no new order.
--- NOTE | 2020-11-07 17:30 | NUR ---
RN opening notes Received Pt from KELECHI Galarza. Pt is resting in bed comfortably. Pt is alert and orientedX1. Respiration on 2 L NC. No SOB. No S/S of distress noted. MARTI midline is clean, intact and infusing well D5W @ 100ml/hr. Safety precautions is maintained. Bed at low position, brakes locked, side rails UpX3, bed alarm is on and call light is within reach. Will continue to monitor.
--- NOTE | 2020-11-07 19:00 | NUR ---
RN ms closing notes Transferred continuity of care to VERA Sandra.
--- NOTE | 2020-11-07 20:00 | NUR ---
MS RN OPENING NOTES: RECEIVED PATIENT IN BED, AWAKE , NOTED TO BE CONFUSED AND EASILY AGITATED. REALITY ORIENTATION DONE. WILL ADMINISTER ORDERED MEDICATIONS. SAFETY AND FALL PRECAUTIONS OBSERVED. BED ALARM KEPT ON. ATTENDED TO ALL PATIENT'S NEEDS. WILL CONTINUE TO MONITOR PATIENT.
[2020-11-08] MEDS: IPRATROPIUM NEB FS 0.5 MG/2.5 ML AMPUL.NEB HHN SCH ×4 (02:33→19:50)
[2020-11-08] MEDS: IV D5W 1,000 ML IV PRN ×2 (03:15→23:10)
--- NOTE | 2020-11-08 05:34 | NUR ---
MS RN CLOSING NOTES: PATIENT IN THE ROOM,WITH EPISODES OF BEING AWAKE AND ASLEEP DURING THIS ENTIRE SHIFT. MARTI MIDLINE IN PLACED [id number] AT 100 ML /HR ON GOING. PATIENT IS QUIET AND CALM THIS TIME. REDIRECTED NEEDED. O2 INHALATION ON GOING. WILL CONTINUE TO MONITOR. WILL ENDORSE PATIENT TO DAY SHIFT NURSE.
[2020-11-08 08:00] VITALS: BP 112/71
[2020-11-08] MEDS: DILTIAZEM HCL CD 240 MG PO SCH (09:00)
[2020-11-08] MEDS: MAGNESIUM OXIDE 400 MG TABLET PO SCH (11:01)
[2020-11-08] MEDS: NICOTINE PATCH (21MG) 21 MG PATCH.TD24 TD SCH (11:01)
[2020-11-08] MEDS: BISACODYL (5 MG) 5 MG TABLET.DR PO SCH (11:01)
--- NOTE | 2020-11-08 13:00 | NUR ---
midline nurse here and placed new midline silverio arm.intact and iv infusing well.
[2020-11-08 16:00] VITALS: BP 120/78
--- NOTE | 2020-11-08 18:00 | NUR ---
received pt. in am alert and oriented x1.pale.skin warm and dry.vs stable.although bed alarm on,pt. did attempt to get oob by self. very confused.monitoring pt. freq.
--- NOTE | 2020-11-08 19:50 | NUR ---
MS RN OPENING NOTES RECEIVED PATIENT IN BED, ALERT AND ORIENTED X 2 CONFUSED. VERBALLY RESPONSIVE AND ABLE TO FOLLOW DIRECTION. BREATHING REGULAR AND UNLABORED ON OXYGEN AT 2L/MIN VIA NASAL CANNULA, LATEST SPO2 94%. LEFT UPPER ARM MIDLINE INTACT AND PATENT, INFUSING WELL WITH NO BLEEDING OR S/S OF INFILTRATION NOTED. DENIES PAIN/DISCOMFORT AT THIS TIME. BED LOW AND LOCKED ON SEMI FOWLERS POSITION. CALL LIGHT IN REACH. WILL CONTINUE TO MONITOR.
[2020-11-08 20:00] VITALS: BP 141/88
[2020-11-08 20:42] VITALS: BP 141/88
[2020-11-08 21:05] LABS: BASOPHILS % (AUTO) 0.5 % (0.0-2.0); EOSINOPHILS % (AUTO) 0.6 % (0.0-6.0); HEMATOCRIT 32 % (39-51); HEMOGLOBIN 9.9 g/dL (13.5-17.5); LYMPHOCYTES # (AUTO) 2.4 /CMM (0.8-4.8); LYMPHOCYTES % (AUTO) 31.3 % (20.0-44.0); MEAN CORPUSCULAR HGB CONC 31 g/dl (31.0-36.0); MEAN CORPUSCULAR VOLUME 96 fL (80-96); MONOCYTES # (AUTO) 1.9 /CMM (0.1-1.30); MONOCYTES % (AUTO) 24.9 % (2.0-12.0); NEUTROPHILS # (AUTO) 3.3 /CMM (1.8-8.9); NEUTROPHILS % (AUTO) 42.7 % (43.0-81.0); PLATELET COUNT (AUTO) 61 /CMM (150-450); RED BLOOD CELL COUNT(AUTO) 3.35 MIL/uL (4.5-6.0); WHITE BLOOD COUNT (AUTO) 7.8 K/uL (4.3-11.0)
[2020-11-08 21:41] LABS: ALBUMIN 2.1 g/dL (3.4-5.0); BILIRUBIN,TOTAL 1.5 mg/dL (0.2-1.0); CALCIUM, SERUM 8.4 mg/dL (8.5-10.1); MAGNESIUM 1.8 mg/dL (1.8-2.4); PHOSPHORUS 3.2 mg/dL (2.5-4.9); TOTAL PROTEIN, SERUM 6.5 g/dL (6.4-8.2)
[2020-11-08 21:50] LABS: BAND % (MANUAL) 4 % (0.0-5.0); LYMPHOCYTES % (MANUAL) 35 % (16-48); MONOCYTES % (MANUAL) 23 % (0-11.0); NEUTROPHILS % (MANUAL) 38 (42-76)
[2020-11-08 22:01] LABS: POTASSIUM 2.7 mmol/L (3.5-5.1)
--- NOTE | 2020-11-08 22:40 | NUR ---
MS RN NOTES RELAYED POTASSIUM LEVEL OF 2.7 TO WITH ORDERS TO INFUSE POTASSIUM CHLORIDE 40meq IV, NOTED AND CARRIED OUT.
[2020-11-08] MEDS: POTASSIUM CL. PREMIX PERIPHER. 50 ML IV SCH (23:11)
[2020-11-09] MEDS: POTASSIUM CL. PREMIX PERIPHER. 50 ML IV SCH ×3 (00:03→01:56)
[2020-11-09] MEDS: IPRATROPIUM NEB FS 0.5 MG/2.5 ML AMPUL.NEB HHN SCH ×3 (01:33→14:13)
[2020-11-09 06:31] LABS: BASOPHILS % (AUTO) 0.6 % (0.0-2.0); EOSINOPHILS % (AUTO) 0.7 % (0.0-6.0); HEMATOCRIT 29 % (39-51); HEMOGLOBIN 9.1 g/dL (13.5-17.5); LYMPHOCYTES # (AUTO) 2.7 /CMM (0.8-4.8); LYMPHOCYTES % (AUTO) 32.9 % (20.0-44.0); MEAN CORPUSCULAR HGB CONC 32 g/dl (31.0-36.0); MEAN CORPUSCULAR VOLUME 95 fL (80-96); MONOCYTES # (AUTO) 1.9 /CMM (0.1-1.30); MONOCYTES % (AUTO) 22.9 % (2.0-12.0); NEUTROPHILS # (AUTO) 3.5 /CMM (1.8-8.9); NEUTROPHILS % (AUTO) 42.9 % (43.0-81.0); PLATELET COUNT (AUTO) 53 /CMM (150-450); RED BLOOD CELL COUNT(AUTO) 3.04 MIL/uL (4.5-6.0); WHITE BLOOD COUNT (AUTO) 8.1 K/uL (4.3-11.0)
--- NOTE | 2020-11-09 06:55 | NUR ---
MS RN CLOSING NOTES PATIENT IN BED, ALERT AND ORIENTED X 2 CONFUSED. AFEBRILE WITH NO S/S OF DISTRESS OBSERVED. LEFT UPPER ARM MIDLINE PATENT AND INFUSING WELL. NO S/S OF PAIN/DISCOMFORT SEEN AT THIS TIME. BED LOW AND LOCKED ON SEMI FOWLERS POSITION. CALL LIGHT IN REACH. WILL ENDORSE TO MORNING SHIFT FOR DEMIAN.
[2020-11-09 06:59] LABS: CALCIUM, SERUM 8.3 mg/dL (8.5-10.1); CREATININE 1.9 mg/dL (0.6-1.3); MAGNESIUM 1.7 mg/dL (1.8-2.4); PHOSPHORUS 3.2 mg/dL (2.5-4.9); POTASSIUM 3.1 mmol/L (3.5-5.1)
[2020-11-09 08:00] VITALS: BP 122/76
[2020-11-09] MEDS ORDERED: Magnesium 1GM/D5W 100ML PREMIX 100 ML IV SCH (08:30)
[2020-11-09 08:54] LABS: D-DIMER 23.16 mg/L(FEU (0.17-0.50)
[2020-11-09] MEDS ORDERED: POTASSIUM CHLORIDE 20 MEQ TAB.PRT.SR PO SCH (09:00)
[2020-11-09 10:09] VITALS: BP 122/76
[2020-11-09] MEDS: BISACODYL (5 MG) 5 MG TABLET.DR PO SCH (10:09)
[2020-11-09] MEDS: MAGNESIUM OXIDE 400 MG TABLET PO SCH (10:09)
[2020-11-09] MEDS: DILTIAZEM HCL CD 240 MG PO SCH (10:09)
[2020-11-09] MEDS: Magnesium 1GM/D5W 100ML PREMIX 100 ML IV SCH ×2 (10:10→12:00)
[2020-11-09] MEDS: POTASSIUM CHLORIDE 20 MEQ TAB.PRT.SR PO SCH ×3 (10:10→14:36)
[2020-11-09] MEDS: NICOTINE PATCH (21MG) 21 MG PATCH.TD24 TD SCH (10:11)
--- NOTE | 2020-11-09 13:30 | NUR ---
GIVEN POTASSIUM AND MG. REPLACEMENT.
[2020-11-09] MEDS: ONDANSETRON HCL/PF 4 MG/2 ML VIAL IVP PRN (13:55)
--- NOTE | 2020-11-09 15:20 | NUR ---
RECEIVED PT. IN AM ALERT AND ORIENTED X1-2.VS STABLE.OCCASIONALLY ATTEMPTING TO GET OOB.IV INFUSING.MD IN DC ORDER GIVEN.PT. REFUSING DC PHOTOS.ALL PAPERS SIGNED.INCLUDING BELONGING SHEET.MIDLINE IV DC'D.BANDAGE TO SITE REPORT CALLED TO [facility].REPORT TO DRIVERS.TRANSPORTED VIA AMB. TO FACILITY.
== END 2020-11-09 15:30 | DRG 871 ==
LOC: ER 00:59 → ICU 04:08 → TELE 11-02 15:11 → MED 11-05 15:17
PROVIDERS: ADMIT Internal Medicine; ATTEND Internal Medicine
PROC: 30243N1 Transfusion of Nonautologous Red Blood Cells into Central Vein, Percutaneous Approach (ICD-10-PCS; principal; 2020-10-29)
PROC: 05HY33Z Insertion of Infusion Device into Upper Vein, Percutaneous Approach (ICD-10-PCS; 2020-10-29)
PROC: 0W993ZZ Drainage of Right Pleural Cavity, Percutaneous Approach (ICD-10-PCS; 2020-11-04)
DX: A41.9 Sepsis, unspecified organism (principal); K72.00 Acute and subacute hepatic failure without coma; J18.9 Pneumonia, unspecified organism; J96.21 Acute and chronic respiratory failure with hypoxia; R65.21 Severe sepsis with septic shock; N17.0 Acute kidney failure with tubular necrosis; I50.33 Acute on chronic diastolic (congestive) heart failure; D68.59 Other primary thrombophilia; D61.818 Other pancytopenia; L03.114 Cellulitis of left upper limb; E22.2 Syndrome of inappropriate secretion of antidiuretic hormone; C34.90 Malignant neoplasm of unspecified part of unspecified bronchus or lung; C79.71 Secondary malignant neoplasm of right adrenal gland; C79.72 Secondary malignant neoplasm of left adrenal gland; J44.0 Chronic obstructive pulmonary disease with (acute) lower respiratory infection; N39.0 Urinary tract infection, site not specified; C78.1 Secondary malignant neoplasm of mediastinum; C77.1 Secondary and unspecified malignant neoplasm of intrathoracic lymph nodes; G93.40 Encephalopathy, unspecified; E87.0 Hyperosmolality and hypernatremia; E87.5 Hyperkalemia; Z20.828 Contact with and (suspected) exposure to other viral communicable diseases; Z59.0 Homelessness; Z87.891 Personal history of nicotine dependence; I48.91 Unspecified atrial fibrillation; D63.8 Anemia in other chronic diseases classified elsewhere; I11.0 Hypertensive heart disease with heart failure; I25.10 Atherosclerotic heart disease of native coronary artery without angina pectoris; Z88.8 Allergy status to other drugs, medicaments and biological substances; Z79.51 Long term (current) use of inhaled steroids; Z79.899 Other long term (current) drug therapy; D69.59 Other secondary thrombocytopenia; E87.6 Hypokalemia; I05.9 Rheumatic mitral valve disease, unspecified; I35.0 Nonrheumatic aortic (valve) stenosis; I70.0 Atherosclerosis of aorta; D69.6 Thrombocytopenia, unspecified; R74.01 Elevation of levels of liver transaminase levels; K80.20 Calculus of gallbladder without cholecystitis without obstruction; K42.9 Umbilical hernia without obstruction or gangrene; N28.1 Cyst of kidney, acquired; B95.2 Enterococcus as the cause of diseases classified elsewhere; D73.5 Infarction of spleen; D63.0 Anemia in neoplastic disease
CPT/HCPCS: 36410; 36415; 36600; 71045-TC; 71250-TC; 76700-TC; 80048-TC; 80053-TC; 80076-TC; 80162-TC; 80202-TC; 81001; 82140-TC; 82533; 82550-TC; 82570-TC; 82728-TC; 82784; 82803-TC; 83540-TC; 83605-TC; 83615-TC; 83735-TC; 83880; 83970; 84100-TC; 84155; 84155-TC; 84165; 84300-TC; 84443-TC; 84484-TC; 85025-TC; 85396; 85610-TC; 85730-TC; 86334; 86706; 86803; 86850-TC; 87040-TC; 87081-TC; 87086-TC; 87186-TC; 87340; 87806; 89051-TC; 93970-TC; 94799-TC; 97112-TC; 97530-TC; A4216; C9803; G0378; J0456; J0692; J0696; J1160; J2270; J2370; J2405; J3370; J3475; J3480; J3490; J7030; J7050; J7060; J7070; P9016-BL; Q2036; U0003

== ENCOUNTER 2020-11-19 21:17 | Inpatient (IN) | payer MEDICARE, OTHER ==
[~2020-11-19] VITALS: Ht 180.3 cm; Wt 93.0 kg
[~2020-11-19 21:17] MED LIST changes: -LEVO500T90 PO; -SODI100037 PO; -TOLV30TA PO; -ZOLP5TAB8 PO
--- NOTE | 2020-11-19 21:20 | NUR ---
ANTONINO FROM [facility] C/O SOB, RA SAT 82%, O2 SAT 100%5L/NC. PT TESTED COVID (+) 11/19/2020 AND PER EMT TRANSPORT PT WAS SENT FOR ABNORMAL LABS WBC-10.51. PT AAOX4, SKIN WARM, NONDIAPHORETIC. PLACE PT ON CARDIAC MONITORING, CONTINUOUS POX.
--- NOTE | 2020-11-19 22:36 | NUR ---
Note colt in EDM - 11/19/20 at 2345 by SARAH PT ASLEEP, NO ACUTE DISTRESS NOTED, RESP EVEN AND UNLABORED. PT TOLERATING CURRENT 02@10L/SIMPLE MASK. EFRAIN YOO MADE AWARE OF O2.
--- NOTE | 2020-11-19 23:05 | NUR ---
SL STARTED ON THE L WRIST 18G.
[2020-11-19] MEDS ORDERED: PIPERACILLIN /TAZOBACTAM 3.375 G VIAL IV ONE (23:10)
[2020-11-19] MEDS ORDERED: VANCOMYCIN 1 GM VIAL ONE (23:10)
[2020-11-19] MEDS ORDERED: PIPERACILLIN /TAZOBACTAM 3.375 G in IV D5W 50 ML IV ONE (23:30)
[2020-11-19] MEDS ORDERED: VANCOMYCIN 1 GM in IV D5W 250 ML IV ONE (23:30)
--- NOTE | 2020-11-20 00:27 | NUR ---
PT PROVIDED WITH URINAL. AWAITING URINE SAMPLE.
[2020-11-20 00:29] LABS: BASOPHILS % (AUTO) 0.5 % (0.0-2.0); EOSINOPHILS % (AUTO) 0.2 % (0.0-6.0); HEMATOCRIT 28 % (39-51); HEMOGLOBIN 8.6 g/dL (13.5-17.5); LYMPHOCYTES # (AUTO) 2.3 /CMM (0.8-4.8); LYMPHOCYTES % (AUTO) 36.2 % (20.0-44.0); MEAN CORPUSCULAR HGB CONC 31 g/dl (31.0-36.0); MEAN CORPUSCULAR VOLUME 97 fL (80-96); MONOCYTES # (AUTO) 0.5 /CMM (0.1-1.30); MONOCYTES % (AUTO) 8.3 % (2.0-12.0); NEUTROPHILS # (AUTO) 3.5 /CMM (1.8-8.9); NEUTROPHILS % (AUTO) 54.8 % (43.0-81.0); PLATELET COUNT (AUTO) 90 /CMM (150-450); RED BLOOD CELL COUNT(AUTO) 2.85 MIL/uL (4.5-6.0); WHITE BLOOD COUNT (AUTO) 6.4 K/uL (4.3-11.0)
--- NOTE | 2020-11-20 00:32 | NUR ---
GENIE JASON AT BEDSIDE TO LOU ARCHIBALD FOR ADMISSION
[2020-11-20 00:47] LABS: ALBUMIN 2.2 g/dL (3.4-5.0); BILIRUBIN,DIRECT 0.5 mg/dL (0.0-0.2); BILIRUBIN,TOTAL 0.7 mg/dL (0.2-1.0); CALCIUM, SERUM 8.6 mg/dL (8.5-10.1); CREATININE 1.7 mg/dL (0.6-1.3); POTASSIUM 3.7 mmol/L (3.5-5.1); TOTAL PROTEIN, SERUM 7.9 g/dL (6.4-8.2)
[2020-11-20] MEDS ORDERED: NICOTINE PATCH (21MG) 21 MG PATCH.TD24 TD SCH (01:00)
[2020-11-20] MEDS ORDERED: ONDANSETRON 4 MG TAB.RAPDIS PO PRN (01:00)
[2020-11-20 01:18] LABS: BILIRUBIN,URINE NEGATIVE (NEGATIVE); COLOR,URINE YELLOW (YELLOW); LEUKOCYTE ESTERASE ,URINE NEGATIVE (NEGATIVE); NITRITE, URINE NEGATIVE (NEGATIVE); PROTEIN,URINE TRACE mg/dl (NEGATIVE); UGLUCOSE NEGATIVE (NEGATIVE); UROBILINOGEN,URINE 0.2 EU/dL (0.2)
[2020-11-20 01:24] LABS: BACTERIA,URINE None seen /HPF (None Seen); SQUAMOUS EPITHELIAL CELL,UR Few /HPF (None Seen)
[2020-11-20] MEDS ORDERED: CEFEPIME 1 GM in IV D5W 50 ML IV SCH (02:00)
[2020-11-20] MEDS ORDERED: SUCCINYLCHOLINE CHLORIDE 20 MG/ML VIAL IV ONE (02:05)
[2020-11-20] MEDS ORDERED: ETOMIDATE 2 MG/ML VIAL IV ONE (02:05)
[2020-11-20] MEDS ORDERED: ONDANSETRON HCL/PF 4 MG/2 ML VIAL IVP PRN (02:30)
[2020-11-20] MEDS ORDERED: ALBUTEROL FS 2.5 MG/3 ML VIAL.NEB NEB PRN (02:30)
[2020-11-20] MEDS ORDERED: ACETAMINOPHEN 650 MG/SUPP.RECT RC PRN (02:30)
--- NOTE | 2020-11-20 02:35 | NUR ---
PT ASLEEP, NO ACUTE DISTRESS NOTED, RESP EVEN AND UNLABORED. CALL LIGHT WITHIN REACH. CALISTA CONTINUE TO MONITOR PT CLOSELY.
--- NOTE | 2020-11-20 03:56 | NUR ---
GENIE LOVELACE [facility]- AT BEDSIDE TO RE-EVAL PT.
--- NOTE | 2020-11-20 07:14 | NUR ---
REPORT GIVEN TO AM SHIFT VERA HUDDLESTON.
[2020-11-20] MEDS ORDERED: APIXABAN 5 MG TABLET PO SCH ×2 (09:00)
[2020-11-20] MEDS ORDERED: DEXAMETHASONE SOD PHOSPHATE 4 MG/ML VIAL IV SCH (09:00)
[2020-11-20] MEDS ORDERED: DIGOXIN 0.25 MG TABLET PO SCH (09:00)
[2020-11-20 09:09] LABS: C-REACTIVE PROTEIN 22.2 mg/dL (0.0-0.9)
[2020-11-20] MEDS ORDERED: DEXAMETHASONE SOD PHOSPHATE 4 MG/ML VIAL ONE (09:37)
[2020-11-20] MEDS: ASCORBIC ACID 500 MG TABLET PO SCH (09:45)
[2020-11-20] MEDS: DEXAMETHASONE SOD PHOSPHATE 10 MG/ML VIAL IV SCH (09:45)
[2020-11-20] MEDS: CEFEPIME 2 GM in IV D5W 100 ML IV SCH ×2 (09:45→21:05)
[2020-11-20] MEDS: DILTIAZEM HCL CD 240 MG PO SCH (09:45)
[2020-11-20] MEDS: APIXABAN 2.5 MG TABLET PO SCH ×2 (09:45→17:14)
[2020-11-20] MEDS: ACIDOPHILUS/BULGARICUS 1 EACH TAB.CHEW PO SCH (09:45)
--- NOTE | 2020-11-20 19:23 | NUR ---
ASSUMED CARE. RECEIVED REPORT FROM AM SHIFT VERA HUDDLESTON. PT RESTING QUIETLY, NO ACUTE DISTRESS NOTED, RESP EVEN AND UNLABORED, LUNG SOUNDS DEMINISHED THROUGHOUT THE BASES. PT ON CARDIAC MONITORING, CONTINUOUS POX. O2@2L/NC NOTED. NO PAIN OR DISCOMFORT NOTED. PT AAOX4. SKIN WARM, NONDIAPHORETIC. CALL LIGHT WITHIN REACH. WILL CONTINUE TO MONITOR PT CLOSELY.
--- NOTE | 2020-11-20 23:46 | NUR ---
PT ASLEEP, NO ACUTE DISTRESS NOTED, RESP EVEN AND UNLABORED. CALL LIGHT WITHIN REACH. WILL CONTINUE TO MONITOR PT CLOSELY.
--- NOTE | 2020-11-21 01:52 | NUR ---
TOTAL PT CARE DONE. Z-GUARD APPLIED. PT KEPT COMFORTABLE, CALL LIGHT WITHIN REACH. WILL CONTINUE TO MONITOR PT CLOSELY.
--- NOTE | 2020-11-21 02:06 | NUR ---
NOTED PT O2 SAT 93% ON 8L/SIMPLE MASK, INCREASED TO 10/SIMPLE MASK, O2 SAT INCREASED TO 96%. WILL CONTINUE TO MONITOR PT CLOSELY.
[2020-11-21 04:26] LABS: BASOPHILS % (AUTO) 0.1 % (0.0-2.0); HEMATOCRIT 27 % (39-51); HEMOGLOBIN 8.2 g/dL (13.5-17.5); LYMPHOCYTES # (AUTO) 1.1 /CMM (0.8-4.8); LYMPHOCYTES % (AUTO) 32.3 % (20.0-44.0); MEAN CORPUSCULAR HGB CONC 31 g/dl (31.0-36.0); MEAN CORPUSCULAR VOLUME 98 fL (80-96); MONOCYTES # (AUTO) 0.3 /CMM (0.1-1.30); MONOCYTES % (AUTO) 7.9 % (2.0-12.0); NEUTROPHILS % (AUTO) 59.7 % (43.0-81.0); PLATELET COUNT (AUTO) 83 /CMM (150-450); RED BLOOD CELL COUNT(AUTO) 2.71 MIL/uL (4.5-6.0); WHITE BLOOD COUNT (AUTO) 3.3 K/uL (4.3-11.0)
[2020-11-21 04:42] LABS: BILIRUBIN,TOTAL 0.7 mg/dL (0.2-1.0); CALCIUM, SERUM 8.4 mg/dL (8.5-10.1); CREATININE 1.5 mg/dL (0.6-1.3); MAGNESIUM 1.3 mg/dL (1.8-2.4); PHOSPHORUS 4.8 mg/dL (2.5-4.9); POTASSIUM 3.9 mmol/L (3.5-5.1); TOTAL PROTEIN, SERUM 7.7 g/dL (6.4-8.2)
--- NOTE | 2020-11-21 04:59 | NUR ---
PT AAOX4, NO ACUTE DISTRESS NOTED, RESP EVEN AND UNLABORED. PT DENIES PAIN OR DISCOMFORT AT THIS TIME. CALL LIGHT WITHIN REACH. WILL CONTINUE TO MONITOR PT CLOSELY.
--- NOTE | 2020-11-21 04:59 | NUR ---
TOTAL PT CARE DONE. PT KEPT COMFORTABLE, CALL LIGHT WITHIN REACH. WILL CONTINUE TO MONITOR PT CLOSELY.
--- NOTE | 2020-11-21 06:20 | NUR ---
REPOSITION PT FOR COMFORT. NO ACUT DISTRESS NOTED, NO PAIN OR DISCOMFORT NOTED AT THIS TIME.
[2020-11-21] MEDS ORDERED: DEXAMETHASONE SOD PHOSPHATE 4 MG/ML VIAL ONE (08:41)
[2020-11-21] MEDS: CEFEPIME 2 GM in IV D5W 100 ML IV SCH ×2 (09:00→23:15)
[2020-11-21] MEDS: DILTIAZEM HCL CD 240 MG PO SCH (09:00)
[2020-11-21] MEDS: DEXAMETHASONE SOD PHOSPHATE 10 MG/ML VIAL IV SCH (09:00)
[2020-11-21] MEDS: APIXABAN 2.5 MG TABLET PO SCH ×2 (09:00→17:25)
[2020-11-21] MEDS: ACIDOPHILUS/BULGARICUS 1 EACH TAB.CHEW PO SCH (09:00)
[2020-11-21] MEDS: ASCORBIC ACID 500 MG TABLET PO SCH (09:09)
[2020-11-21] MEDS: Magnesium 1GM/D5W 100ML PREMIX 100 ML IV SCH ×4 (10:00→13:00)
[2020-11-21] MEDS ORDERED: Magnesium 1GM/D5W 100ML PREMIX 400 ML IV ONE (10:05)
[2020-11-21] MEDS: DIGOXIN 0.125 MG TABLET PO SCH (13:00)
--- NOTE | 2020-11-21 19:15 | NUR ---
ASSUMED CARE FROM VERA HUDDLESTON. PT IS A&OX4. PT ABLE TO SPEAK IN FULL SENTENCES AND BREATHING EVENLY AND UNLABORED. PT HAS MILD COUGH AND O295% 8L SIMPLE MASK.SKIN IS INTACT, WARM AND DRY. PT HOOKED TO MONITOR AND POX. CALL LIGHT WITHIN REACH. WILL CONTINUE TO MONITOR.
--- NOTE | 2020-11-21 22:00 | NUR ---
ATTEMPTED TO ADMINISTER MED. FOUND 20 G RT WRIST LINE INFLITRATED. ATTEMPTED TO RESTART IV. WILL TRY AGAIN.
--- NOTE | 2020-11-21 22:10 | NUR ---
PT ASKED TO EAT AND WANTED TO FEED HIMSELF. CURRENTLY SEATED UPRIGHT AND EATING.
[2020-11-21] MEDS ORDERED: LORAZEPAM 1 MG TABLET ONE (22:28)
[2020-11-21] MEDS: LORAZEPAM 1 MG TABLET PO PRN (22:30)
--- NOTE | 2020-11-21 22:30 | NUR ---
PT APPEARS RESTLESS AND IRRITABLE. ATIVAN 1MG PO, PRN GIVEN AT THIS TIME. PT STILL ON CONTINUOUS INSTRUMENTATION CHEMIST AND POX. CALL LIGHT WITHIN REACH. WILL CONTINUE TO MONITOR.
--- NOTE | 2020-11-22 01:41 | NUR ---
REPORT CALLED TO MASTER BAKERVERA SUAREZ. WILL TRANSPORT PT VIA ACLS PROTOCOL.
[2020-11-22 02:30] VITALS: BP 101/63
--- NOTE | 2020-11-22 02:30 | NUR ---
ADMISSION NOTE. PT ADMITTE FROM ER HOLD/TRANSITION PT WAS ADMITTED FOR COVID PNA 11/20/20 TO COVID PNA; AND ACUTE HYPOXIC RESP FAILURE. PT IS ALERT AND ORIENTED X3 KING SALMON AND PER REPORT FROM ED IN ER FORGETFUL AT TIMES. PT IS AFIB WITH PVC/S PER WIND TURBINE MECHANICAL ENGINEER. PT SAUTRATION IS 94% ON 10 LITER SIMPLE FACE MASK. PT ORIENTED TO ROOM. GIVEN A NACK OF APPLE JUICE AND CRACKERS. CALL LIGHT PLACED WITHIN REACH. BED DOWN LOCKED. VERBALIZED UNDERSTANDING TO CALL FOR ASSISTANCE IF NEEDED.
--- NOTE | 2020-11-22 07:15 | NUR ---
RN NOTE Patient Received. Patient is noted in bed, awake and oriented x2 with episodes of confusion. Breathing is even and non labored continues on 10L via NRB with no signs of acute distress noted. IV site is noted to L Hand 20G noted to be patent and intact. patient continues on cardiac cath rn. Safety measures are in place. Bed is in lowest position and locked. Call light within reach. All needs attended to promptly. Will continue plan of care as ordered.
[2020-11-22 07:52] LABS: BASOPHILS % (AUTO) 0.1 % (0.0-2.0); HEMATOCRIT 26 % (39-51); HEMOGLOBIN 8.2 g/dL (13.5-17.5); LYMPHOCYTES # (AUTO) 0.9 /CMM (0.8-4.8); LYMPHOCYTES % (AUTO) 18.3 % (20.0-44.0); MEAN CORPUSCULAR HGB CONC 31 g/dl (31.0-36.0); MEAN CORPUSCULAR VOLUME 97 fL (80-96); MONOCYTES # (AUTO) 0.3 /CMM (0.1-1.30); MONOCYTES % (AUTO) 5.7 % (2.0-12.0); NEUTROPHILS # (AUTO) 3.9 /CMM (1.8-8.9); NEUTROPHILS % (AUTO) 75.9 % (43.0-81.0); PLATELET COUNT (AUTO) 84 /CMM (150-450); RED BLOOD CELL COUNT(AUTO) 2.71 MIL/uL (4.5-6.0); WHITE BLOOD COUNT (AUTO) 5.1 K/uL (4.3-11.0)
[2020-11-22 08:00] VITALS: BP 96/53
[2020-11-22 08:48] LABS: CALCIUM, SERUM 8.3 mg/dL (8.5-10.1); CREATININE 1.4 mg/dL (0.6-1.3); MAGNESIUM 2.1 mg/dL (1.8-2.4); POTASSIUM 3.9 mmol/L (3.5-5.1)
[2020-11-22] MEDS: DILTIAZEM HCL CD 240 MG PO SCH (09:00)
[2020-11-22 09:57] VITALS: BP 106/50
[2020-11-22] MEDS: ACIDOPHILUS/BULGARICUS 1 EACH TAB.CHEW PO SCH (10:06)
[2020-11-22] MEDS: ASCORBIC ACID 500 MG TABLET PO SCH (10:06)
[2020-11-22] MEDS: DEXAMETHASONE SOD PHOSPHATE 10 MG/ML VIAL IV SCH (10:06)
[2020-11-22] MEDS: CEFEPIME 2 GM in IV D5W 100 ML IV SCH (10:08)
[2020-11-22] MEDS: APIXABAN 2.5 MG TABLET PO SCH ×2 (10:08→17:37)
[2020-11-22] MEDS: ACETAMINOPHEN 325 MG TABLET PO PRN (11:22)
[2020-11-22] MEDS: LORAZEPAM 1 MG TABLET PO PRN (11:22)
[2020-11-22 12:00] VITALS: BP 117/51
[2020-11-22] MEDS: DIGOXIN 0.125 MG TABLET PO SCH (14:05)
[2020-11-22 16:00] VITALS: BP 103/46
[2020-11-22 16:53] LABS: BASOPHILS % (AUTO) 0.2 % (0.0-2.0); EOSINOPHILS % (AUTO) 0.2 % (0.0-6.0); HEMATOCRIT 28 % (39-51); HEMOGLOBIN 8.7 g/dL (13.5-17.5); LYMPHOCYTES # (AUTO) 0.9 /CMM (0.8-4.8); LYMPHOCYTES % (AUTO) 15.4 % (20.0-44.0); MEAN CORPUSCULAR HGB CONC 31 g/dl (31.0-36.0); MEAN CORPUSCULAR VOLUME 97 fL (80-96); MONOCYTES # (AUTO) 0.2 /CMM (0.1-1.30); MONOCYTES % (AUTO) 3.2 % (2.0-12.0); NEUTROPHILS # (AUTO) 4.9 /CMM (1.8-8.9); PLATELET COUNT (AUTO) 94 /CMM (150-450); RED BLOOD CELL COUNT(AUTO) 2.86 MIL/uL (4.5-6.0)
[2020-11-22 18:33] LABS: LYMPHOCYTES % (MANUAL) 15 % (16-48); MONOCYTES % (MANUAL) 2 % (0-11.0); NEUTROPHILS % (MANUAL) 83 (42-76)
--- NOTE | 2020-11-22 19:16 | NUR ---
RN NOTE Patient is noted in bed, awake and oriented x2 with episodes of confusion. Breathing is even and non labored continues on 15L via NRB with no signs of acute distress noted. Patient continues on equipment monitor phototypesetting. Safety measures are in place. Bed is in lowest position and locked. Call light within reach. All needs attended to promptly. Will endorse to continue plan of care as ordered.
[2020-11-22 20:00] VITALS: BP 125/75
--- NOTE | 2020-11-22 21:55 | NUR ---
atttempted iv insertion x2 patient has iv abx due. unable to start iv. informed archivist [employer]. new order recieved from midline insertion. call made to data warehouse consultant gokul and informed of new order.
[2020-11-23] VITALS: BP 116/76
[2020-11-23] MEDS: CEFEPIME 2 GM in IV D5W 100 ML IV SCH ×3 (00:29→20:01)
[2020-11-23] MEDS: ACETAMINOPHEN 325 MG TABLET PO PRN ×2 (02:22→13:15)
[2020-11-23] MEDS: LORAZEPAM 1 MG TABLET PO PRN ×3 (02:23→22:06)
--- NOTE | 2020-11-23 02:23 | NUR ---
pt anxious and complaining of back pain rated 3/10;. pt requested tyeleneol and ativan. administered as ordered.
--- NOTE | 2020-11-23 03:03 | NUR ---
pt breathing hard labored. at 26 on 10 liter face mask spo2 93%. pt placed on 15 liter non rebreather. rr down to 18. spo2 now at 100% will cont to monitor.
[2020-11-23 04:00] VITALS: BP 141/67
--- NOTE | 2020-11-23 07:25 | NUR ---
RN PM CLOSING PT IN BED AWAKE LETHARGIC ORIENTED X2 WITH EPISODES OF CONFUSION. BREATHING IS EVEN AND NON LABORED ON 15 LNRB PT IS SPO2 IS 100%. HAD DIFFICULTY WITH PATIENT LAST NOC HE REMOVED OXYGEN MASK AT TIMES AND DESATURATES. CONTINUOUS POX APPLIED AND REMINDED PATIENT TO WEAR HIS OXYGEN. ON PROFESSIONAL NURSE. BED DOWN LOCKED SRX3 BED ALARM ACTIVE. CALL LIGTH WITHIN REACH. WILL ENDORSE TO ONCOMING SHIFT.
[2020-11-23 07:30] LABS: BASOPHILS % (AUTO) 0.1 % (0.0-2.0); HEMATOCRIT 26 % (39-51); HEMOGLOBIN 8.2 g/dL (13.5-17.5); LYMPHOCYTES # (AUTO) 0.9 /CMM (0.8-4.8); LYMPHOCYTES % (AUTO) 15.5 % (20.0-44.0); MEAN CORPUSCULAR HGB CONC 31 g/dl (31.0-36.0); MEAN CORPUSCULAR VOLUME 97 fL (80-96); MONOCYTES # (AUTO) 0.4 /CMM (0.1-1.30); NEUTROPHILS # (AUTO) 4.5 /CMM (1.8-8.9); NEUTROPHILS % (AUTO) 77.4 % (43.0-81.0); PLATELET COUNT (AUTO) 87 /CMM (150-450); WHITE BLOOD COUNT (AUTO) 5.8 K/uL (4.3-11.0)
--- NOTE | 2020-11-23 07:40 | NUR ---
FACILITIES CUSTODIAN NOTES PATIENT RECEIVED IN BED, ALERT AND ORIENTED X 2, ON NON-REBREATHER 15 LITERS, WITH SPO2 AT 100% AT THIS TIME. ON HARDSCAPE FOREMAN CONTROLLED A FIB 87. IV ACCESS INTACT AND PATENT, SKIN WARM AND DRY TO TOUCH. PATIENT PRESENTING WITH NO PAIN OR DISCOMFORT AT THIS TIME. SAFETY PRECAUTIONS IMPLEMENTED WITH BED LOCKED, BILATERAL NILAM RAILS UP, BED ALARM ON, BED IN THE LOWEST POSITION, AND CALL LIGHT WITHIN EASY REACH. WILL CONTINUE TO MONITOR.
[2020-11-23 07:46] LABS: CALCIUM, SERUM 8.7 mg/dL (8.5-10.1); CREATININE 1.2 mg/dL (0.6-1.3); POTASSIUM 3.8 mmol/L (3.5-5.1)
[2020-11-23 08:00] VITALS: BP 169/72
--- NOTE | 2020-11-23 08:40 | NUR ---
MIXING PAN TENDER NOTES PATIENT SEEN AND EXAMINED BY DR. HUNTER, INFORMED TO TITRATE PATIENT FROM NON-REBREATHER MASK TO NASAL CANNULA 6 LITERS. WILL CARRY OUT AND CONTINUE TO MONITOR PATIENT.
[2020-11-23] MEDS: DILTIAZEM HCL CD 240 MG PO SCH (08:43)
[2020-11-23] MEDS: DEXAMETHASONE SOD PHOSPHATE 10 MG/ML VIAL IV SCH (08:43)
[2020-11-23] MEDS: APIXABAN 2.5 MG TABLET PO SCH ×2 (08:43→17:30)
[2020-11-23] MEDS: ACIDOPHILUS/BULGARICUS 1 EACH TAB.CHEW PO SCH (08:43)
[2020-11-23] MEDS: ASCORBIC ACID 500 MG TABLET PO SCH (08:43)
[2020-11-23 12:00] VITALS: BP 129/77
[2020-11-23] MEDS: ENSURE ENLIVE CHOC 237 ML CAN PO SCH ×3 (12:12→17:30)
[2020-11-23] MEDS: DIGOXIN 0.125 MG TABLET PO SCH (12:12)
--- NOTE | 2020-11-23 13:28 | NUR ---
RN NOTE Patient verbalizing pain to lower back of 4/10. Tylenol administered. Will continue to monitor.
--- NOTE | 2020-11-23 14:20 | NUR ---
RN NOTES PATIENT BECOMING RESTLESS AND ATTEMPTING TO GET OUT OF BED, REMOVING NASAL CANNULA AND SENIOR OPERATOR. PROVIDED COMFORT AND CALM ENVIRONMENT. ADMINISTERED PRN ATIVAN ORDERED WILL CONTINUE TO MONITOR PATIENT.
--- NOTE | 2020-11-23 15:00 | NUR ---
RN NOTES PATIENT STILL AGITATED AND REMOVING LINES AND INSTRUMENT MAINTENANCE SUPERVISOR. INFORMED DR MCMILLAN, ORDERED BILATERAL SOFT WRIST RESTRAINTS. WILL CARRY ORDERS AND CONTINUE TO MONITOR PATIENT.
[2020-11-23 16:00] VITALS: BP 126/67
[2020-11-23] MEDS ORDERED: REMDESIVIR (CHARGED) 200 MG, *LOADING DOSE 1 EA in IV NS 0.9% 210 ML IV ONE ×2 (16:00→19:00)
--- NOTE | 2020-11-23 19:25 | NUR ---
RECEPTION SPECIALIST NOTES PATIENT IN BED, ALERT AND ORIENTED X 2, ON NASAL CANNULA 6 LITERS, ON CHANDELIER MAKER CONTROLLED A FIB 90. IV ACCESS INTACT AND PATENT, SKIN KEPT CLEAN, WARM AND DRY TO TOUCH. PATIENT PRESENTING WITH NO PAIN OR DISCOMFORT AT THIS TIME. BILATERAL SOFT WRIST RESTRAINTS IN PLACE WITH ADEQUATE SKIN CIRCULATION PRESENT. MET ALL OF PATIENT'S NEEDS. SAFETY PRECAUTIONS IMPLEMENTED WITH BED LOCKED, BILATERAL NILAM RAILS UP, BED ALARM ON, BED IN THE LOWEST POSITION, AND CALL LIGHT WITHIN EASY REACH. WILL ENDORSE PLAN OF CARE TO UPCOMING RN.
[2020-11-23 20:00] VITALS: BP 136/67
--- NOTE | 2020-11-23 21:00 | NUR ---
PT IS VERY RESTLESS, ABLE TO TAKE OFF HIS OXYGEN-NASAL CANNULA, PT IS TACHYPNEIC, A/O X2. HOB ELEVATED. O2 SAT 88-89% ON 6L /MIN. CHANGED NASAL CANNULA TO NON-REBREATHER MASK AT 15L/MIN SATTING ON 100%. ANIYA DAVIS MADE AWARE. ATIVAN PO GIVEN. BED ALARM ON. BILATERAL WRISTS RESTRAINTS ON, GOOD CIRCULATION. SKIN IS INTACT.
[2020-11-24] VITALS (18 sets, daily range): BP systolic 115–152; BP diastolic 55–85
[2020-11-24] MEDS: GUAIFENESIN LA 600 MG TABLET.SA PO SCH ×3 (00:22→21:03)
--- NOTE | 2020-11-24 04:13 | NUR ---
PT IS VERY CONGESTED, TACHYPNEIC, O2 SAT 95% ON NON-REBREATHER MASK 15L/MIN, INFORMED DECKHAND FISHING VESSEL RYAN WITH ORDERS MADE AND CARRIED OUT, CALLED THE RT FOR STAT ABG AND TO PUT THE PT ON A HIGH FLOW O2 NASAL CANNULA.
[2020-11-24 04:53] LABS: ABG BASE EXCESS 10.5 mmol/L; ABG OXYGEN SATURATION 89.1 % (92.0-98.5); ABG PCO2 93.4 mmHg (35.0-45.0); ABG PH 7.251 (7.350-7.450); ABG PO2 66.2 mmHg (75.0-100.0); AaDO2 553.4 mmHg; COHb 0.5 % (0.5-1.5); O2Hb 88.7 % (94.0-97.0); SITE, ABG Left Radial; VENT MODE, BG 15 LNRB
--- NOTE | 2020-11-24 05:01 | NUR ---
ABG RESULTS SENT TO ANIYA DAVIS.
--- NOTE | 2020-11-24 05:29 | NUR ---
PT IS NOW ON HIGH FLOW 60L, 100%, NON-REBREATHER 15L, SATTING 87 TO 90%.PT IS TACHYPNEIC, RR IS 38 AND USING ACCESSORY MUSCLES, ORACLE BPM DEVELOPER RYAN AWARE.
--- NOTE | 2020-11-24 05:41 | NUR ---
RT pt placed on hfnc + nrb. pt found on nrb. abg results on nrb: ph7.25 co2 93 o2 66 hco3 40. pt saturation on hfnc + nrb 85-91%. accessory muscles being used. pt not in current distress. monitoring pt.
--- NOTE | 2020-11-24 05:53 | NUR ---
ANIYA DAVIS CAME AND SEEN THE PATIENT. PATIENT IS LETHARGIC NOW, INFORMED MEDICAL AND SCIENTIFIC ILLUSTRATOR.
--- NOTE | 2020-11-24 06:00 | NUR ---
ER , ASSISTANT FOOTBALL COACHVERA CARVER, AND THE RT TEAM CAME FOR THE INTUBATION. AT 0640, BP 123/69, O2 SAT 99%. ASSISTANT FOOTBALL COACHVERA CARVER STARTED THE PROPOFOL 5MCG/KG/MIN, WITH THE RATE OF 2.68M//HOUR.
[2020-11-24] MEDS ORDERED: SUCCINYLCHOLINE CHLORIDE 20 MG/ML VIAL IV ONE (06:30)
[2020-11-24] MEDS ORDERED: LORAZEPAM INJ 2 MG/ML VIAL IV ONE (06:30)
[2020-11-24] MEDS ORDERED: ETOMIDATE 2 MG/ML VIAL IV ONE (06:30)
--- NOTE | 2020-11-24 06:33 | NUR ---
RT rt called for pt intubation. ett size 7.5, 20@ lip. settings: AC 24 550 100% +5. saturation 95%. small thin white secretions suctioned via ett.
[2020-11-24] MEDS ORDERED: PROPOFOL 100 ML ONE (06:34)
[2020-11-24] MEDS: IPRATROPIUM/ALBUTEROL INHALER IH SCH ×3 (07:35→19:30)
[2020-11-24 07:50] LABS: BASOPHILS % (AUTO) 0.1 % (0.0-2.0); EOSINOPHILS % (AUTO) 0.1 % (0.0-6.0); HEMATOCRIT 31 % (39-51); HEMOGLOBIN 9.4 g/dL (13.5-17.5); LYMPHOCYTES # (AUTO) 0.7 /CMM (0.8-4.8); LYMPHOCYTES % (AUTO) 8.3 % (20.0-44.0); MEAN CORPUSCULAR HGB CONC 30 g/dl (31.0-36.0); MEAN CORPUSCULAR VOLUME 100 fL (80-96); MONOCYTES # (AUTO) 0.5 /CMM (0.1-1.30); MONOCYTES % (AUTO) 5.5 % (2.0-12.0); NEUTROPHILS # (AUTO) 7.1 /CMM (1.8-8.9); PLATELET COUNT (AUTO) 120 /CMM (150-450); RED BLOOD CELL COUNT(AUTO) 3.09 MIL/uL (4.5-6.0); WHITE BLOOD COUNT (AUTO) 8.3 K/uL (4.3-11.0)
[2020-11-24] MEDS: ENSURE ENLIVE CHOC 237 ML CAN PO SCH ×3 (08:00→18:00)
--- NOTE | 2020-11-24 08:00 | NUR ---
SIDE FRAMER PATIENT RECEIVED FROM MED SURG2, RECEIVED REPORTORT AT BEDSIDE LUIS F FUNG THE RN, TRANSFERED IN BED, INTUBATION IN PLACE, SEDATED WITH PROPOFOL AT 30MCG/KG/MIN, O2 SAT >95%, NO S/S OF DISTRESS, TELE MINOTOR IN PLACE, A FIB CONTROLLED, SOFT WRIST RESTRAINTS IN PLACE, PICTURE OF WOUNDS TAKE AND PLACED IN CHART, R UA MIDLINE INTACT FLUSHES WELL, RT PRESENT, BED IN LOWEST LOCKED POSITION, BED ALARM ON, SAFETY MEASURES IN PLACE, WILL CONTINUE TO MONITOR.
--- NOTE | 2020-11-24 08:00 | NUR ---
PT TRANSFERRED TO ICU AND REPORTS GIVEN TO VERA MARTINES.
--- NOTE | 2020-11-24 08:00 | NUR ---
VERTICAL LATHE OPERATOR QUELICIN AND AMIDATE WERE GIVEN DURING INTUBATION THIS MORNING.
[2020-11-24 08:06] LABS: ALBUMIN 2.3 g/dL (3.4-5.0); BILIRUBIN,DIRECT 0.4 mg/dL (0.0-0.2); BILIRUBIN,TOTAL 0.7 mg/dL (0.2-1.0); CALCIUM, SERUM 9.1 mg/dL (8.5-10.1); CREATININE 1.3 mg/dL (0.6-1.3); POTASSIUM 4.4 mmol/L (3.5-5.1); TOTAL PROTEIN, SERUM 7.9 g/dL (6.4-8.2)
[2020-11-24 08:39] LABS: ABG BASE EXCESS 9.6 mmol/L; ABG OXYGEN SATURATION 96.1 % (92.0-98.5); ABG PCO2 47.9 mmHg (35.0-45.0); ABG PH 7.473 (7.350-7.450); ABG PO2 67.2 mmHg (75.0-100.0); AaDO2 597.9 mmHg; COHb 0.1 % (0.5-1.5); PEEP,BG 5 cm H2O; SITE, ABG Left Radial; VT, ABG 550 mL
--- NOTE | 2020-11-24 08:40 | NUR ---
CALLED CASHIER AND WAITER/WAITRESS CONRAD RE: PT'S FAMILY MEMBER NEEDS TO BE CONTACTED OF ICU TRANSFER.
--- NOTE | 2020-11-24 08:59 | NUR ---
WOUND CARE CONSULT: REVIEWED CHART, NURSING DOCUMENTATION AND SPOKE WITH NURSING STAFF. PER CHART, THERE IS DISCOLORATION TO LEFT PLANTAR FOOT AND SACRAL EXCORIATION. RECOMMENDATIONS MADE FOR SKIN PROTECTION. DISCUSSED WITH NURSING STAFF. MD IN AGREEMENT WITH PLAN OF CARE.
[2020-11-24] MEDS: ASCORBIC ACID 500 MG TABLET PO SCH (09:00)
[2020-11-24] MEDS: ACIDOPHILUS/BULGARICUS 1 EACH TAB.CHEW PO SCH (09:00)
[2020-11-24] MEDS: APIXABAN 2.5 MG TABLET PO SCH ×2 (09:00→17:59)
[2020-11-24] MEDS: DILTIAZEM HCL CD 240 MG PO SCH (09:00)
--- NOTE | 2020-11-24 09:00 | NUR ---
NARROW GAUGE ENGINEER PATIENT IS INTUBATED WITH NO ACCESS FOR GIVING PO MEDS AT THIS TIME, GIVING PATIENT TIME TO REST BEFORE INSERTION OF ORAL GASTRIC TUBE. NON ADMINISTERED ENSURE, VITAMIN C, AND MUCINEX.
[2020-11-24] MEDS ORDERED: Z GUARD REMEDY 2 OZ OINT TP PRN (09:30)
--- NOTE | 2020-11-24 09:30 | NUR ---
ET TUBE ADVANCED 3CM TO 23CM AT LIP LINE Addendum: 11/24/20 at 0939 by RADHA EM RT Amended: Links added.
[2020-11-24] MEDS: CEFEPIME 2 GM in IV D5W 100 ML IV SCH ×2 (09:59→21:03)
[2020-11-24] MEDS: DEXAMETHASONE SOD PHOSPHATE 10 MG/ML VIAL IV SCH (09:59)
[2020-11-24] MEDS: Z GUARD REMEDY 2 OZ OINT TP SCH (10:01)
--- NOTE | 2020-11-24 10:24 | NUR ---
ASSISTANT PROFESSOR OF CHEMISTRY NOTIFIED DR HUNTER OF BP 193/140, ORDERED TO INCREASE PROPOFOL TO 50MCG/KG/MIN STAT. DID SO, WILL CONTINUE TO MONITOR.
--- NOTE | 2020-11-24 10:40 | NUR ---
MINISTER HELPER BP 109/54. PATIENT TOLERATED INCREASE OF PROPOFOL.
--- NOTE | 2020-11-24 10:59 | NUR ---
PERIPATOLOGIST CLEANED PATIENT WITH HELP OF RUBBER STAMP MAKER, NO BOWEL MOVEMENT PRESENT. TOLERATED WELL.
--- NOTE | 2020-11-24 11:17 | NUR ---
FIRE FIGHTERS DISPATCHER NURSING SWALLOW EVAL DONE, TOLERATED WELL.
[2020-11-24] MEDS: PROPOFOL 100 ML IV PRN ×4 (11:55→21:59)
[2020-11-24] MEDS: DIGOXIN 0.125 MG TABLET PO SCH (13:00)
--- NOTE | 2020-11-24 13:30 | NUR ---
NON ADMINISTER INHALER BECAUSE PATIENT IS INTUBATED AND NON ADMINISTER ENSURE BECAUSE HAS NO PO ACCESS.
[2020-11-24] MEDS ORDERED: REMDESIVIR (CHARGED) 100 MG in IV NS 0.9% 230 ML IV SCH ×2 (16:00→19:00)
--- NOTE | 2020-11-24 16:30 | NUR ---
PROFESSIONAL NURSING TUTOR INSERTED ORAL GASTRIC TUBE WITH ASSISTANCE OF CHARGE NURSE. PLACEMENT VERIFIED, NO S/S OF DISTRESS, NO RESDIUAL, 16 FRINGE. TOLERATED WELL.
--- NOTE | 2020-11-24 19:30 | NUR ---
MILLSTONE CLEANER PATIENT RESTING IN BED, NO S/S OF DISTRESS, INTUBATION IN PLACE, SEDATED WITH PROPOFOL AT 50MCG/KG/MIN, O2 SAT >95%, TELE MINOTOR IN PLACE, A FIB CONTROLLED, SOFT WRIST RESTRAINTS IN PLACE, R UA MIDLINE INTACT FLUSHES WELL, BED IN LOWEST LOCKED POSITION, BED ALARM ON, SAFETY MEASURES IN PLACE, WILL CONTINUE TO MONITOR.
--- NOTE | 2020-11-24 20:25 | NUR ---
RN NOTE PATIENT IN BED, INTUBATED AND SEDATED WITH PROPOFOL @ 50 MCG/KG/MIN. ON VENT, TOLERATING SETTINGS WELL. TELE MONITOR ON, AFIB CONTROLLED. NOTED WITH SOFT BILATERAL WRIST RESTRAINTS. NO SKIN ISSUES NOTED, CIRCULATION CHECKED. WITH [facility] #18 SL. SAFETY MEASURES IN PLACE. WILL CONTINUE TO MONITOR.
[2020-11-25] VITALS (62 sets, daily range): BP systolic 83–159; BP diastolic 42–90
[2020-11-25] MEDS: PROPOFOL 100 ML IV PRN ×7 (00:47→22:42)
[2020-11-25] MEDS: IPRATROPIUM/ALBUTEROL INHALER IH SCH ×4 (00:58→19:30)
[2020-11-25 04:33] LABS: BASOPHILS % (AUTO) 0.1 % (0.0-2.0); HEMATOCRIT 23 % (39-51); HEMOGLOBIN 7.4 g/dL (13.5-17.5); LYMPHOCYTES # (AUTO) 0.7 /CMM (0.8-4.8); LYMPHOCYTES % (AUTO) 9.1 % (20.0-44.0); MEAN CORPUSCULAR HGB CONC 32 g/dl (31.0-36.0); MEAN CORPUSCULAR VOLUME 94 fL (80-96); MONOCYTES # (AUTO) 0.2 /CMM (0.1-1.30); MONOCYTES % (AUTO) 2.9 % (2.0-12.0); NEUTROPHILS # (AUTO) 7.1 /CMM (1.8-8.9); NEUTROPHILS % (AUTO) 87.9 % (43.0-81.0); PLATELET COUNT (AUTO) 81 /CMM (150-450); RED BLOOD CELL COUNT(AUTO) 2.45 MIL/uL (4.5-6.0); WHITE BLOOD COUNT (AUTO) 8.1 K/uL (4.3-11.0)
[2020-11-25 04:34] LABS: ALBUMIN 1.7 g/dL (3.4-5.0); BILIRUBIN,DIRECT 0.5 mg/dL (0.0-0.2); BILIRUBIN,TOTAL 0.8 mg/dL (0.2-1.0); CALCIUM, SERUM 7.7 mg/dL (8.5-10.1); CREATININE 1.2 mg/dL (0.6-1.3); TOTAL PROTEIN, SERUM 5.9 g/dL (6.4-8.2)
[2020-11-25 05:07] LABS: LYMPHOCYTES % (MANUAL) 4 % (16-48); MONOCYTES % (MANUAL) 4 % (0-11.0); NEUTROPHILS % (MANUAL) 92 (42-76)
[2020-11-25 05:09] LABS: ABG BASE EXCESS 10.7 mmol/L; ABG OXYGEN SATURATION 97.8 % (92.0-98.5); ABG PCO2 26.2 mmHg (35.0-45.0); ABG PH 7.693 (7.350-7.450); ABG PO2 82.5 mmHg (75.0-100.0); AaDO2 316.5 mmHg; COHb 0.3 % (0.5-1.5); MetHb 0.3 % (0.0-1.5); O2Hb 97.2 % (94.0-97.0); PEEP,BG 8 cm H2O; SITE, ABG Right Radial; VENT MODE, BG AC 24 550 60% +8; VT, ABG 550 mL
[2020-11-25 05:18] LABS: POTASSIUM 2.7 mmol/L (3.5-5.1)
[2020-11-25] MEDS: ENSURE ENLIVE CHOC 237 ML CAN PO SCH ×3 (08:00→17:31)
--- NOTE | 2020-11-25 08:00 | NUR ---
RN NOTES RECEIVING PATIENT RESTING IN BED, NO S/S OF DISTRESS, INTUBATION IN PLACE, TOLERATING EET WELL, NO ACUTE RESPIRATORY DISTRESS. SEDATED WITH PROPOFOL AT 50MCG/KG/MIN, O2 SAT >100%, TELE MONITOR IN PLACE, SOFT WRIST RESTRAINTS IN PLACE, R UA MIDLINE INTACT FLUSHES WELL, OGT INTACT, ADMINISTERED SCHEDULED PO MEDICATION CRUSHED, AVERY DRAINING LIGHT YELLOW OUTPUT. BED IN LOWEST LOCKED POSITION, BED ALARM ON, SAFETY MEASURES IN PLACE, ASSIST TURN AND REPOSTION Q 2 HR, WILL CONTINUE TO MONITOR.
[2020-11-25] MEDS: POTASSIUM CL. PREMIX PERIPHER. 50 ML IV SCH ×6 (08:09→15:44)
[2020-11-25] MEDS ORDERED: POTASSIUM CL. PREMIX PERIPHER. 50 ML IV SCH (09:00)
[2020-11-25] MEDS: ASCORBIC ACID 500 MG TABLET PO SCH (09:31)
[2020-11-25] MEDS: ACIDOPHILUS/BULGARICUS 1 EACH TAB.CHEW PO SCH (09:31)
[2020-11-25] MEDS: DILTIAZEM HCL CD 240 MG PO SCH (09:33)
[2020-11-25] MEDS: DEXAMETHASONE SOD PHOSPHATE 10 MG/ML VIAL IV SCH (09:33)
[2020-11-25] MEDS: GUAIFENESIN LA 600 MG TABLET.SA PO SCH ×2 (09:35→21:42)
[2020-11-25] MEDS: Z GUARD REMEDY 2 OZ OINT TP SCH (09:36)
[2020-11-25] MEDS: APIXABAN 2.5 MG TABLET PO SCH ×2 (09:44→18:19)
[2020-11-25] MEDS: CEFEPIME 2 GM in IV D5W 100 ML IV SCH ×2 (09:47→21:34)
[2020-11-25] MEDS: REMDESIVIR (CHARGED) 100 MG in IV NS 0.9% 230 ML IV SCH (10:30)
[2020-11-25] MEDS ORDERED: acetaZOLAMIDE SODIUM 500 MG/VIAL VIAL IV ONE (14:00)
[2020-11-25] MEDS: DIGOXIN 0.125 MG TABLET PO SCH (14:45)
--- NOTE | 2020-11-25 16:01 | NUR ---
RN NOTES STARTED CONVALESCENT PLASMA INFUSION 340 ML AT THIS TIME AT 50ML/HR, V/S TAKEN BP 92/59, P-66, T-98.3, PATIENT INTUBATED, NO ACUTE RESPIRATORY DISTRESS, WILL MONITORING.
--- NOTE | 2020-11-25 16:15 | NUR ---
RN NOTES PATIENT STABLE NO ACUTE RESPIRATORY DISTRESS, BP-105/51, P-73, T-98, INCREASED INFUSION 250 ML/HR, PATIENT TOLERATED WELL, WILL MONITORING.
--- NOTE | 2020-11-25 17:38 | NUR ---
RN NOTES FINISHED CONVALESCENT PLASMA TRANSFUSION AT THIS TIME, BP 119/69, P-70, R-22, T-98, O2-100 EET VENTILATION, NO ANY PAIN. PATIENT HAS NO ACUTE RESPIRATORY DISTRESS. WILL MONITORING.
--- NOTE | 2020-11-25 18:30 | NUR ---
RN NOTES PM CARE DONE, SUCTION, PATIENT TOLERATED EET SETTING WELL, ALSO ADMINISTERED SCHEDULED MEDICATION, DIPRIVAN INFUSING 50MCG ON RIGHT UPPER MIDLINE , TITRATED PER PROTOCOL. OGT CLAMPED, ASSIST TURN AND REPOSTION Q 2 HR, ENDORSED ONCOMING NURSE FOLLOW PLAN OF CARE.
--- NOTE | 2020-11-25 19:30 | NUR ---
RN NOTES RECEIVED PATIENT IN BED INTUBATED, ON MECHANICAL VENT, SETTING TOLERATING WELL ORDERED. TELE MONITOR READING SB IN 50'S. IV LINES INTACT PATENT FLUSHES WELL. NO S/S OF DISTRESS NOTED. BILATERAL SOFT WRIST RESTRAINS IN PLACE, CHECKED FOR CIRCULATIONS AND PULSES. F/C AND FLEXISEAL IN PLACE. ALL SAFETY MEASURES IN PLACE,CALL LIGHT WITHIN REACH. WILL CONT TO MONITOR FOR DEMIAN. Addendum: 11/26/20 at 0707 by ERYN BRITT RN ERROR PT DOES NOT HAVE FLEXISEAL.
[2020-11-26] VITALS (25 sets, daily range): BP systolic 81–124; BP diastolic 27–69
[2020-11-26] MEDS: IPRATROPIUM/ALBUTEROL INHALER IH SCH ×4 (01:30→19:30)
[2020-11-26] MEDS: PROPOFOL 100 ML IV PRN ×6 (01:42→20:07)
[2020-11-26 05:25] LABS: BASOPHILS # (AUTO) 0.1 /CMM (0.0-0.2); BASOPHILS % (AUTO) 0.8 % (0.0-2.0); EOSINOPHILS % (AUTO) 1.2 % (0.0-6.0); HEMATOCRIT 24 % (39-51); HEMOGLOBIN 7.6 g/dL (13.5-17.5); LYMPHOCYTES # (AUTO) 0.4 /CMM (0.8-4.8); LYMPHOCYTES % (AUTO) 4.5 % (20.0-44.0); MEAN CORPUSCULAR HGB CONC 32 g/dl (31.0-36.0); MEAN CORPUSCULAR VOLUME 95 fL (80-96); MONOCYTES # (AUTO) 0.3 /CMM (0.1-1.30); MONOCYTES % (AUTO) 2.8 % (2.0-12.0); NEUTROPHILS # (AUTO) 8.6 /CMM (1.8-8.9); NEUTROPHILS % (AUTO) 90.7 % (43.0-81.0); PLATELET COUNT (AUTO) 85 /CMM (150-450); RED BLOOD CELL COUNT(AUTO) 2.49 MIL/uL (4.5-6.0); WHITE BLOOD COUNT (AUTO) 9.5 K/uL (4.3-11.0)
[2020-11-26 05:42] LABS: ALBUMIN 1.9 g/dL (3.4-5.0); BILIRUBIN,DIRECT 0.5 mg/dL (0.0-0.2); BILIRUBIN,TOTAL 0.8 mg/dL (0.2-1.0); CALCIUM, SERUM 7.6 mg/dL (8.5-10.1); CREATININE 1.2 mg/dL (0.6-1.3); POTASSIUM 3.1 mmol/L (3.5-5.1); TOTAL PROTEIN, SERUM 6.4 g/dL (6.4-8.2)
[2020-11-26 06:10] LABS: LYMPHOCYTES % (MANUAL) 5 % (16-48); MONOCYTES % (MANUAL) 3 % (0-11.0); NEUTROPHILS % (MANUAL) 92 (42-76)
--- NOTE | 2020-11-26 07:07 | NUR ---
RN NOTES MA CARE DONE BED BATH GIVEN PATIENT TOLERATED WELL. OGT IN PLACE, TURNING REPOSITIONING PROTOCOL. IV SITES INTACT PATENT FLUSHES WELL. NO S/S OF ACUTE DISTRESS NOTED. KEPT CLEAN DRY AND COMFORTABLE. SAFETY MEASURES IN PLACE, CALL LIGHT WITHIN REACH. WILL ENDORSE TO AM NURSE FOR DEMIAN,
--- NOTE | 2020-11-26 07:30 | NUR ---
RN OPENING NOTE PT IN BED, NO SIGN OF RESP DISTRESS OR SOB, INTUBATION IN PLACE. SEDATED WITH PROPOFOL AT 50MCG/KG/HR. BILAT SOFT WRIST RESTRAINTS IN PLACE, CMS INTACT. OGT INTACT AND CHECKED FOR PLACEMENT. ALL SAFETY MEASURES IN PLACE. WILL CONTINUE TO MONITOR.
[2020-11-26 08:11] LABS: ABG BASE EXCESS 3.8 mmol/L; ABG OXYGEN SATURATION 97.1 % (92.0-98.5); ABG PCO2 40.2 mmHg (35.0-45.0); ABG PH 7.459 (7.350-7.450); ABG PO2 94.2 mmHg (75.0-100.0); AaDO2 217.1 mmHg; COHb 0.3 % (0.5-1.5); MetHb 0.1 % (0.0-1.5); O2Hb 96.7 % (94.0-97.0); PEEP,BG 8 cm H2O; SITE, ABG Right Radial; VT, ABG 500 mL
[2020-11-26] MEDS ORDERED: POTASSIUM CHLORIDE 20 MEQ POWDER PACKET GT SCH (09:00)
[2020-11-26] MEDS: CEFEPIME 2 GM in IV D5W 100 ML IV SCH ×2 (09:21→22:08)
[2020-11-26] MEDS: DEXAMETHASONE SOD PHOSPHATE 10 MG/ML VIAL IV SCH (09:21)
[2020-11-26] MEDS: ASCORBIC ACID 500 MG TABLET PO SCH (09:21)
[2020-11-26] MEDS: GUAIFENESIN LA 600 MG TABLET.SA PO SCH ×2 (09:25→22:09)
[2020-11-26] MEDS: ACIDOPHILUS/BULGARICUS 1 EACH TAB.CHEW PO SCH (09:26)
--- NOTE | 2020-11-26 09:36 | NUR ---
RN NOTE PER DR THACKER, D/C DILTIAZEM
[2020-11-26] MEDS: ENSURE ENLIVE CHOC 237 ML CAN PO SCH ×3 (09:39→18:17)
[2020-11-26] MEDS: Z GUARD REMEDY 2 OZ OINT TP SCH (09:39)
[2020-11-26] MEDS: POTASSIUM CHLORIDE 20 MEQ POWDER PACKET PO SCH ×3 (09:42→11:06)
--- NOTE | 2020-11-26 10:00 | NUR ---
RN NOTE PER DR HUNTER, CHANGE ELIQUIS FROM 2.5MG BID TO 5MG BID. ORDER PLACED
[2020-11-26] MEDS: REMDESIVIR (CHARGED) 100 MG in IV NS 0.9% 230 ML IV SCH (11:03)
[2020-11-26] MEDS: APIXABAN 5 MG TABLET PO SCH ×2 (11:05→17:47)
[2020-11-26] MEDS: DIGOXIN 0.125 MG TABLET PO SCH (12:44)
[2020-11-26] MEDS ORDERED: POTASSIUM CHLORIDE 20 MEQ POWDER PACKET PO SCH (14:00)
--- NOTE | 2020-11-26 14:04 | NUR ---
RN NOTE DID NOT ADMIN KCL 20MEQ AT 1100. WILL ADMIN THIRD OF 3 POWDER PACKET NOW
--- NOTE | 2020-11-26 19:00 | NUR ---
RN NOTE NO CHANGES TO PT STATUS DURING SHIFT. ALL SAFETY PRECAUTIONS IN PLACE. PT REPORT GIVEN TO ONCOMING RN FOR DEMIAN.
[2020-11-27] VITALS (24 sets, daily range): BP systolic 91–119; BP diastolic 53–73
[2020-11-27] MEDS: PROPOFOL 100 ML IV PRN ×5 (01:35→23:59)
[2020-11-27] MEDS: IPRATROPIUM/ALBUTEROL INHALER IH SCH ×4 (01:36→19:30)
[2020-11-27 05:22] LABS: ABG BASE EXCESS 0.2 mmol/L; ABG OXYGEN SATURATION 92.7 % (92.0-98.5); ABG PH 7.418 (7.350-7.450); ABG PO2 69.3 mmHg (75.0-100.0); AaDO2 243.3 mmHg; COHb 0.4 % (0.5-1.5); MetHb 0.1 % (0.0-1.5); O2Hb 92.2 % (94.0-97.0); SITE, ABG Right Radial; VENT MODE, BG AC16 VT500 50% +5
[2020-11-27 05:31] LABS: BASOPHILS # (AUTO) 0.1 /CMM (0.0-0.2); BASOPHILS % (AUTO) 0.7 % (0.0-2.0); EOSINOPHILS % (AUTO) 0.1 % (0.0-6.0); HEMATOCRIT 24 % (39-51); HEMOGLOBIN 7.6 g/dL (13.5-17.5); LYMPHOCYTES # (AUTO) 0.6 /CMM (0.8-4.8); LYMPHOCYTES % (AUTO) 4.2 % (20.0-44.0); MEAN CORPUSCULAR HGB CONC 32 g/dl (31.0-36.0); MEAN CORPUSCULAR VOLUME 95 fL (80-96); MONOCYTES # (AUTO) 0.4 /CMM (0.1-1.30); MONOCYTES % (AUTO) 2.5 % (2.0-12.0); NEUTROPHILS # (AUTO) 13.4 /CMM (1.8-8.9); NEUTROPHILS % (AUTO) 92.5 % (43.0-81.0); PLATELET COUNT (AUTO) 91 /CMM (150-450); WHITE BLOOD COUNT (AUTO) 14.5 K/uL (4.3-11.0)
[2020-11-27 05:43] LABS: PHOSPHORUS 4.2 mg/dL (2.5-4.9)
[2020-11-27 05:46] LABS: ALBUMIN 1.7 g/dL (3.4-5.0); BILIRUBIN,DIRECT 0.5 mg/dL (0.0-0.2); BILIRUBIN,TOTAL 0.7 mg/dL (0.2-1.0); CALCIUM, SERUM 7.5 mg/dL (8.5-10.1); CREATININE 1.1 mg/dL (0.6-1.3); LYMPHOCYTES % (MANUAL) 3 % (16-48); MONOCYTES % (MANUAL) 2 % (0-11.0); NEUTROPHILS % (MANUAL) 95 (42-76); POTASSIUM 3.8 mmol/L (3.5-5.1); TOTAL PROTEIN, SERUM 5.9 g/dL (6.4-8.2)
[2020-11-27 05:56] LABS: MAGNESIUM 1.2 mg/dL (1.8-2.4)
[2020-11-27] MEDS: DEXAMETHASONE SOD PHOSPHATE 10 MG/ML VIAL IV SCH (09:22)
[2020-11-27] MEDS: CEFEPIME 2 GM in IV D5W 100 ML IV SCH ×2 (09:22→20:24)
[2020-11-27] MEDS: Z GUARD REMEDY 2 OZ OINT TP SCH (09:23)
[2020-11-27] MEDS: GUAIFENESIN LA 600 MG TABLET.SA PO SCH ×2 (10:40→20:24)
[2020-11-27] MEDS: ACIDOPHILUS/BULGARICUS 1 EACH TAB.CHEW PO SCH (10:40)
[2020-11-27] MEDS: ENSURE ENLIVE CHOC 237 ML CAN PO SCH ×3 (10:40→17:50)
[2020-11-27] MEDS: ASCORBIC ACID 500 MG TABLET PO SCH (10:40)
[2020-11-27] MEDS: REMDESIVIR (CHARGED) 100 MG in IV NS 0.9% 230 ML IV SCH (10:41)
[2020-11-27] MEDS ORDERED: Magnesium 1GM/D5W 100ML PREMIX PIGGYBACK IV ONE (12:00)
[2020-11-27] MEDS: DIGOXIN 0.125 MG TABLET PO SCH (12:22)
[2020-11-27] MEDS: Magnesium 1GM/D5W 100ML PREMIX 100 ML IV SCH ×2 (12:22→14:07)
[2020-11-27] MEDS: APIXABAN 5 MG TABLET PO SCH ×2 (12:29→17:50)
--- NOTE | 2020-11-27 19:37 | NUR ---
RN NOTES PATIENT IN BED, INTUBATED AND SEDATED WITH PROPOFOL @ 35 MCG/KG/MIN. ON VENT, TOLERATING SETTINGS WELL. TELE MONITOR ON, SR. NOTED WITH SOFT BILATERAL WRIST RESTRAINTS. NO SKIN ISSUES NOTED, CIRCULATION CHECKED. WITH [facility] INTACT AND IN PLACE. OGT IN PLACE AND PLACEMENT VERIFIED. SAFETY MEASURES IN PLACE. WILL CONTINUE TO MONITOR.
[2020-11-28] VITALS (24 sets, daily range): BP systolic 89–112; BP diastolic 42–66
[2020-11-28] MEDS: IPRATROPIUM/ALBUTEROL INHALER IH SCH ×4 (01:30→19:30)
[2020-11-28] MEDS: PROPOFOL 100 ML IV PRN ×3 (03:48→21:21)
[2020-11-28 04:57] LABS: BASOPHILS % (AUTO) 0.3 % (0.0-2.0); HEMATOCRIT 25 % (39-51); HEMOGLOBIN 7.8 g/dL (13.5-17.5); LYMPHOCYTES # (AUTO) 0.8 /CMM (0.8-4.8); LYMPHOCYTES % (AUTO) 6.3 % (20.0-44.0); MEAN CORPUSCULAR HGB CONC 32 g/dl (31.0-36.0); MEAN CORPUSCULAR VOLUME 96 fL (80-96); MONOCYTES # (AUTO) 0.5 /CMM (0.1-1.30); MONOCYTES % (AUTO) 3.5 % (2.0-12.0); NEUTROPHILS # (AUTO) 12.1 /CMM (1.8-8.9); NEUTROPHILS % (AUTO) 89.9 % (43.0-81.0); PLATELET COUNT (AUTO) 108 /CMM (150-450); RED BLOOD CELL COUNT(AUTO) 2.58 MIL/uL (4.5-6.0); WHITE BLOOD COUNT (AUTO) 13.4 K/uL (4.3-11.0)
[2020-11-28 05:22] LABS: ALBUMIN 1.7 g/dL (3.4-5.0); BILIRUBIN,TOTAL 0.7 mg/dL (0.2-1.0); CALCIUM, SERUM 7.8 mg/dL (8.5-10.1); CREATININE 0.8 mg/dL (0.6-1.3); TOTAL PROTEIN, SERUM 5.8 g/dL (6.4-8.2)
[2020-11-28 05:30] LABS: BILIRUBIN,DIRECT 0.2 mg/dL (0.0-0.2); POTASSIUM 5.2 mmol/L (3.5-5.1)
[2020-11-28 05:54] LABS: ABG BASE EXCESS -1.5 mmol/L; ABG OXYGEN SATURATION 89.3 % (92.0-98.5); ABG PCO2 38.6 mmHg (35.0-45.0); ABG PH 7.397 (7.350-7.450); ABG PO2 60.6 mmHg (75.0-100.0); AaDO2 252.5 mmHg; COHb 0.8 % (0.5-1.5); MetHb 0.2 % (0.0-1.5); O2Hb 88.4 % (94.0-97.0); SITE, ABG Left Radial; VENT MODE, BG AC 16 500 50% +5
--- NOTE | 2020-11-28 08:15 | NUR ---
RN NOTE PATIENT RESTING IN BED, INTUBATED AND SEDATED WITH PROPOFOL @ 35 MCG/KG/MIN. ON VENT, TOLERATING SETTINGS WELL. TELE MONITOR ON, SR. NOTED WITH SOFT BILATERAL WRIST RESTRAINTS. NO SKIN ISSUES NOTED, CIRCULATION CHECKED. WITH [facility] INTACT AND IN PLACE. OGT IN PLACE AND PLACEMENT VERIFIED. SAFETY MEASURES IN PLACE. SAFETY MEASURES IMPLEMENTED. CALL LIGHT WITHIN REACH. ENDORSED TO ONCOMING SHIFT.
[2020-11-28] MEDS: ENSURE ENLIVE CHOC 237 ML CAN PO SCH ×3 (08:26→17:57)
[2020-11-28] MEDS: DEXAMETHASONE SOD PHOSPHATE 10 MG/ML VIAL IV SCH (09:25)
[2020-11-28] MEDS: APIXABAN 5 MG TABLET PO SCH ×2 (09:27→18:02)
[2020-11-28] MEDS: GUAIFENESIN LA 600 MG TABLET.SA PO SCH ×2 (09:28→21:21)
[2020-11-28] MEDS: Z GUARD REMEDY 2 OZ OINT TP SCH (09:28)
[2020-11-28] MEDS: ACIDOPHILUS/BULGARICUS 1 EACH TAB.CHEW PO SCH (09:28)
[2020-11-28] MEDS: ASCORBIC ACID 500 MG TABLET PO SCH (09:28)
[2020-11-28] MEDS: CEFEPIME 2 GM in IV D5W 100 ML IV SCH ×2 (09:30→21:21)
[2020-11-28] MEDS: REMDESIVIR (CHARGED) 100 MG in IV NS 0.9% 230 ML IV SCH (10:16)
[2020-11-28] MEDS: DIGOXIN 0.125 MG TABLET PO SCH (13:50)
[2020-11-29] VITALS (24 sets, daily range): BP systolic 90–122; BP diastolic 49–68
[2020-11-29] MEDS: PROPOFOL 100 ML IV PRN ×6 (00:59→20:51)
[2020-11-29] MEDS: IPRATROPIUM/ALBUTEROL INHALER IH SCH ×4 (01:26→19:30)
[2020-11-29 04:49] LABS: BASOPHILS % (AUTO) 0.3 % (0.0-2.0); EOSINOPHILS % (AUTO) 0.1 % (0.0-6.0); HEMATOCRIT 24 % (39-51); HEMOGLOBIN 7.6 g/dL (13.5-17.5); LYMPHOCYTES # (AUTO) 0.9 /CMM (0.8-4.8); LYMPHOCYTES % (AUTO) 6.1 % (20.0-44.0); MEAN CORPUSCULAR HGB CONC 32 g/dl (31.0-36.0); MEAN CORPUSCULAR VOLUME 96 fL (80-96); MONOCYTES # (AUTO) 0.7 /CMM (0.1-1.30); MONOCYTES % (AUTO) 4.8 % (2.0-12.0); NEUTROPHILS # (AUTO) 12.7 /CMM (1.8-8.9); NEUTROPHILS % (AUTO) 88.7 % (43.0-81.0); PLATELET COUNT (AUTO) 89 /CMM (150-450); WHITE BLOOD COUNT (AUTO) 14.3 K/uL (4.3-11.0)
[2020-11-29 04:59] LABS: ALBUMIN 1.6 g/dL (3.4-5.0); BILIRUBIN,TOTAL 0.6 mg/dL (0.2-1.0); CREATININE 0.7 mg/dL (0.6-1.3); MAGNESIUM 1.5 mg/dL (1.8-2.4); PHOSPHORUS 3.6 mg/dL (2.5-4.9); POTASSIUM 3.2 mmol/L (3.5-5.1); TOTAL PROTEIN, SERUM 5.5 g/dL (6.4-8.2)
[2020-11-29 05:00] LABS: C-REACTIVE PROTEIN 13.7 mg/dL (0.0-0.9)
[2020-11-29 05:06] LABS: ABG BASE EXCESS -0.2 mmol/L; ABG OXYGEN SATURATION 95.6 % (92.0-98.5); ABG PCO2 41.9 mmHg (35.0-45.0); AaDO2 224.4 mmHg; COHb 1.7 % (0.5-1.5); PEEP,BG 5 cm H2O; SITE, ABG Right Radial
[2020-11-29 05:14] LABS: BAND % (MANUAL) 1 % (0.0-5.0); LYMPHOCYTES % (MANUAL) 4 % (16-48); MONOCYTES % (MANUAL) 6 % (0-11.0); NEUTROPHILS % (MANUAL) 89 (42-76)
--- NOTE | 2020-11-29 07:10 | NUR ---
RN NOTE PATIENT RESTING IN BED, INTUBATED AND SEDATED WITH PROPOFOL @ 35 MCG/KG/MIN. ON VENT, AC 16, TV 500. FIO2 50 AND PEEP OF 5. TOLERATING WELL, NO SIGNS OF DISTRESS NOTED AT THIS TIME. TELE MONITOR ON, SR HR OF 70'S. NOTED WITH SOFT BILATERAL WRIST RESTRAINTS. CIRCULATION CHECKED. WITH [facility] INTACT AND IN PLACE. OGT IN PLACE AND PLACEMENT VERIFIED. SAFETY MEASURES IN PLACE. SAFETY MEASURES IMPLEMENTED. CALL LIGHT WITHIN REACH. WILL CONTINUE TO MONITOR.
[2020-11-29] MEDS: ENSURE ENLIVE CHOC 237 ML CAN PO SCH ×3 (08:00→17:05)
[2020-11-29] MEDS: GUAIFENESIN LA 600 MG TABLET.SA PO SCH ×2 (08:26→20:54)
[2020-11-29] MEDS: ACIDOPHILUS/BULGARICUS 1 EACH TAB.CHEW PO SCH (08:26)
[2020-11-29] MEDS: DEXAMETHASONE SOD PHOSPHATE 10 MG/ML VIAL IV SCH (08:26)
[2020-11-29] MEDS: CEFEPIME 2 GM in IV D5W 100 ML IV SCH (08:26)
[2020-11-29] MEDS: ASCORBIC ACID 500 MG TABLET PO SCH (08:26)
[2020-11-29] MEDS ORDERED: Magnesium 1GM/D5W 100ML PREMIX 100 ML IV SCH (08:30)
[2020-11-29] MEDS: APIXABAN 5 MG TABLET PO SCH ×2 (08:43→17:04)
[2020-11-29] MEDS: Z GUARD REMEDY 2 OZ OINT TP SCH (10:18)
--- NOTE | 2020-11-29 10:20 | NUR ---
PT PLACED ON SIMV AT [address] HUTNER WEANING ORDER SIMV 4 500 50% +5 PS 15. SEDATION DC FOR 30MIN. PT DID NOT TOLERATE WITH SOB INCREASED WOB INCREASED RR AND DECREASED SPO2. PT RETURNED TO AC Addendum: 11/29/20 at 1022 by BRENDAN CAMPOS RT Amended: Links added.
[2020-11-29] MEDS: POTASSIUM CL. PREMIX PERIPHER. 50 ML IV SCH ×4 (11:06→14:46)
[2020-11-29] MEDS: DIGOXIN 0.125 MG TABLET PO SCH (12:04)
--- NOTE | 2020-11-29 20:00 | NUR ---
Received patient non verbal intubated to mechanical vent on full vent support. Dx: Acute Hypoxic Respiratory Failure.Covid+.Sedated o Diprivan gtt at 35 mcg via [facility] mid[facility] and site intact.VSS.Afib coontrolled.OGT clamped & placement verified.FC to gravity drainage.Turned and repositioned with HOB elevated. Secretions suctioned.No acute distress noted.Continue monitoring.
[2020-11-30] VITALS (25 sets, daily range): BP systolic 69–118; BP diastolic 42–78
[2020-11-30] MEDS: IPRATROPIUM/ALBUTEROL INHALER IH SCH ×4 (01:30→19:30)
[2020-11-30] MEDS: PROPOFOL 100 ML IV PRN ×6 (01:44→19:25)
--- NOTE | 2020-11-30 02:00 | NUR ---
VS remains stable.Bed bath rendered and complete linens changed.Turned and repositioned, N o acute distress noted.
[2020-11-30 03:24] LABS: BASOPHILS % (AUTO) 0.2 % (0.0-2.0); HEMATOCRIT 26 % (39-51); HEMOGLOBIN 8.2 g/dL (13.5-17.5); LYMPHOCYTES % (AUTO) 4.9 % (20.0-44.0); MEAN CORPUSCULAR HGB CONC 32 g/dl (31.0-36.0); MEAN CORPUSCULAR VOLUME 97 fL (80-96); MONOCYTES # (AUTO) 0.8 /CMM (0.1-1.30); MONOCYTES % (AUTO) 3.8 % (2.0-12.0); NEUTROPHILS # (AUTO) 18.1 /CMM (1.8-8.9); NEUTROPHILS % (AUTO) 91.1 % (43.0-81.0); PLATELET COUNT (AUTO) 77 /CMM (150-450); RED BLOOD CELL COUNT(AUTO) 2.67 MIL/uL (4.5-6.0); WHITE BLOOD COUNT (AUTO) 19.8 K/uL (4.3-11.0)
[2020-11-30 03:35] LABS: CALCIUM, SERUM 8.1 mg/dL (8.5-10.1); CREATININE 0.8 mg/dL (0.6-1.3); MAGNESIUM 1.6 mg/dL (1.8-2.4); PHOSPHORUS 3.5 mg/dL (2.5-4.9)
[2020-11-30 03:48] LABS: BAND % (MANUAL) 1 % (0.0-5.0); NEUTROPHILS % (MANUAL) 91 (42-76)
[2020-11-30 03:49] LABS: LYMPHOCYTES % (MANUAL) 4 % (16-48); MONOCYTES % (MANUAL) 4 % (0-11.0)
[2020-11-30] MEDS ORDERED: IV NS 0.9% 250 ML IV ONE (04:30)
[2020-11-30 05:42] LABS: ABG BASE EXCESS -2.8 mmol/L; ABG OXYGEN SATURATION 98.3 % (92.0-98.5); ABG PH 7.397 (7.350-7.450); ABG PO2 116.1 mmHg (75.0-100.0); AaDO2 199.9 mmHg; COHb 0.5 % (0.5-1.5); MetHb 0.2 % (0.0-1.5); O2Hb 97.6 % (94.0-97.0); PEEP,BG 5 cm H2O; SITE, ABG Right Radial
--- NOTE | 2020-11-30 07:43 | NUR ---
Patient remains sedated.VSS.Afib controlled.Tolerating vent settings.Dipprivan gtt infusing to [facility] ML site intact.All needs met.No significant change to patient status all throughout the night.Report given to day shift for DEMIAN.
[2020-11-30] MEDS: ENSURE ENLIVE CHOC 237 ML CAN PO SCH ×3 (08:00→18:00)
[2020-11-30] MEDS: ASCORBIC ACID 500 MG TABLET PO SCH (08:28)
[2020-11-30] MEDS: ACIDOPHILUS/BULGARICUS 1 EACH TAB.CHEW PO SCH (08:28)
[2020-11-30] MEDS: GUAIFENESIN LA 600 MG TABLET.SA PO SCH ×2 (08:28→21:47)
[2020-11-30] MEDS: APIXABAN 5 MG TABLET PO SCH ×2 (09:00→16:32)
[2020-11-30] MEDS ORDERED: Magnesium 1GM/D5W 100ML PREMIX 100 ML IV SCH (09:30)
[2020-11-30] MEDS: Z GUARD REMEDY 2 OZ OINT TP SCH (09:58)
[2020-11-30] MEDS: DIGOXIN 0.125 MG TABLET PO SCH (12:59)
--- NOTE | 2020-11-30 20:00 | NUR ---
Received patient DX:Covid PNA,Respiratory Failure.Non verbal orally intubated on full vent support.Sedated on Diprivan gtt at 35 mcg infusing via [facility].Site intact.Afib controlled. OGT clamped.FC to gravity .No acute distress noted.Turned and repositioned.Continue monitoring.
--- NOTE | 2020-11-30 20:22 | NUR ---
RT NOTE PT RECEIVED INTUBATED WITH 7.5 ET TUBE @ 23 CM. AMBU BAG @ HOB. SX DONE, ET TUBE SECURED AND PATENT. BILATERAL CHEST RISE. VENT PLUGGED TO RED OUTLET. ALARMS ON AND AUDIBLE. NO DISTRESS NOTED AT THIS TIME. WILL CONTINUE TO MONITOR T/O SHIFT. Addendum: 11/30/20 at 2022 by RENZO RAMSEY RT Amended: Links added.
[2020-12-01] VITALS (24 sets, daily range): BP systolic 80–143; BP diastolic 52–80
[2020-12-01] MEDS: PROPOFOL 100 ML IV PRN ×5 (00:16→20:47)
[2020-12-01] MEDS: IPRATROPIUM/ALBUTEROL INHALER IH SCH ×4 (01:30→19:30)
[2020-12-01] MEDS ORDERED: IV NS 0.9% 250 ML IV PRN (02:30)
[2020-12-01 04:59] LABS: BASOPHILS % (AUTO) 0.1 % (0.0-2.0); EOSINOPHILS % (AUTO) 0.4 % (0.0-6.0); HEMATOCRIT 26 % (39-51); HEMOGLOBIN 8.4 g/dL (13.5-17.5); LYMPHOCYTES # (AUTO) 1.1 /CMM (0.8-4.8); LYMPHOCYTES % (AUTO) 5.8 % (20.0-44.0); MEAN CORPUSCULAR HGB CONC 32 g/dl (31.0-36.0); MEAN CORPUSCULAR VOLUME 95 fL (80-96); MONOCYTES # (AUTO) 0.7 /CMM (0.1-1.30); MONOCYTES % (AUTO) 3.8 % (2.0-12.0); NEUTROPHILS # (AUTO) 17.9 /CMM (1.8-8.9); NEUTROPHILS % (AUTO) 89.9 % (43.0-81.0); RED BLOOD CELL COUNT(AUTO) 2.74 MIL/uL (4.5-6.0); WHITE BLOOD COUNT (AUTO) 19.9 K/uL (4.3-11.0)
[2020-12-01 05:12] LABS: PLATELET COUNT (AUTO) 83 /CMM (150-450)
[2020-12-01 05:14] LABS: CALCIUM, SERUM 8.3 mg/dL (8.5-10.1); CREATININE 0.6 mg/dL (0.6-1.3); MAGNESIUM 1.6 mg/dL (1.8-2.4); PHOSPHORUS 2.9 mg/dL (2.5-4.9); POTASSIUM 3.3 mmol/L (3.5-5.1)
[2020-12-01 06:38] LABS: EOSINOPHILS % (MANUAL) 2 % (0-4); LYMPHOCYTES % (MANUAL) 6 % (16-48); MONOCYTES % (MANUAL) 3 % (0-11.0); NEUTROPHILS % (MANUAL) 89 (42-76)
[2020-12-01] MEDS: ENSURE ENLIVE CHOC 237 ML CAN PO SCH ×3 (08:00→17:14)
[2020-12-01] MEDS ORDERED: POTASSIUM CHLORIDE 20 MEQ POWDER PACKET NG SCH (08:00)
--- NOTE | 2020-12-01 08:00 | NUR ---
travel registered nurse icu note Received patient.Non verbal orally intubated on full vent support.Sedated on Diprivan gtt at 35 mcg infusing via [facility].Site intact.Afib controlled. OGT clamped.FC to gravity .No acute distress noted.Turned and repositioned.Continue monitoring.
[2020-12-01] MEDS: ACIDOPHILUS/BULGARICUS 1 EACH TAB.CHEW PO SCH (09:00)
[2020-12-01] MEDS: GUAIFENESIN LA 600 MG TABLET.SA PO SCH ×2 (09:00→21:31)
[2020-12-01] MEDS: ASCORBIC ACID 500 MG TABLET PO SCH (09:00)
[2020-12-01] MEDS: APIXABAN 5 MG TABLET PO SCH ×2 (09:03→17:14)
[2020-12-01] MEDS: Z GUARD REMEDY 2 OZ OINT TP SCH (09:09)
--- NOTE | 2020-12-01 10:03 | NUR ---
agricultural extension agent note per dr kimball no propofol sedation
[2020-12-01] MEDS: Magnesium 1GM/D5W 100ML PREMIX 100 ML IV SCH ×2 (11:53→13:05)
--- NOTE | 2020-12-01 12:00 | NUR ---
curriculum development manager note all needs attended ,cont on propofol drip as ordered, oral care done ,suction ett tube .done keep hob elevated ,will monitor
[2020-12-01] MEDS: DIGOXIN 0.125 MG TABLET PO SCH (13:07)
--- NOTE | 2020-12-01 15:00 | NUR ---
icu manager note turn repositon ,cont on vent setting as ordered
--- NOTE | 2020-12-01 18:28 | NUR ---
SETTER JUICE PACKAGING MACHINES NOTE CONT ON VENT SETTING ORDERED , STILL SEDATED , ON PROPOFOL DRIP ORDERED, RT UPPER ARM MID LINE IN PLACE, KEEP HOB ELELVATED AT ALL TIME , WITH AVERY CATH TO GRAVITY , WILL CONT TO MONITOR
--- NOTE | 2020-12-01 20:00 | NUR ---
Received patient non verbal orally intubated on full vent support tolerating vent settings well.Sedated on Diprivan gtt.SR .VSS.OGT clamped and placement verified.Maintained on NPO status except meds.FC to gravity drainage.Turned and repositioned.No acute distress noted.
[2020-12-02] VITALS (63 sets, daily range): BP systolic 51–174; BP diastolic 36–120
[2020-12-02] MEDS: PROPOFOL 100 ML IV PRN ×5 (01:22→20:42)
[2020-12-02] MEDS: IPRATROPIUM/ALBUTEROL INHALER IH SCH ×4 (01:30→14:29)
--- NOTE | 2020-12-02 02:00 | NUR ---
Patient O2 saturation down to 87%.FIO2 titrated up by RT to 50%.O2 sat went up to 91%. No acute distress noted.
[2020-12-02] MEDS ORDERED: NOREPINEPHRINE 4 MG/4 ML AMPUL IV ONE (02:04)
[2020-12-02] MEDS: NOREPINEPHRINE 8 MG in IV NS 0.9% 242 ML IV PRN ×3 (02:08→18:24)
--- NOTE | 2020-12-02 02:30 | NUR ---
AT 0100 patient SBP started to drop to 80's and 77 and O2 saturation down to 86%-87% RT notified and increased FIO2 to 50%.0208 Levophed gtt started at 0.1 mcg.No acute distress noted but at 0231 BP elevated and HR 153.Infusion stopped and EKG done reading Afib with RVR 149.Continue monitoring.
--- NOTE | 2020-12-02 02:31 | NUR ---
Patient HR 153 and BP 174/120 while Levophed gtt infusing titrated off.EKG done reading Afib with RVR. Continue monitoring.
[2020-12-02] MEDS ORDERED: PHENYLEPHRINE 10 MG/ML VIAL ONE (03:56)
[2020-12-02] MEDS: PHENYLEPHRINE 50 MG in IV NS 0.9% 245 ML IV PRN ×7 (04:06→22:38)
--- NOTE | 2020-12-02 04:10 | NUR ---
Patient remains hemodynamically unstable.Levophed gtt titrated off .Started on Neosynephrine gtt per protocol.
[2020-12-02 05:29] LABS: BASOPHILS % (AUTO) 0.1 % (0.0-2.0); EOSINOPHILS % (AUTO) 0.4 % (0.0-6.0); HEMATOCRIT 27 % (39-51); HEMOGLOBIN 8.7 g/dL (13.5-17.5); LYMPHOCYTES # (AUTO) 0.9 /CMM (0.8-4.8); LYMPHOCYTES % (AUTO) 3.5 % (20.0-44.0); MEAN CORPUSCULAR HGB CONC 32 g/dl (31.0-36.0); MEAN CORPUSCULAR VOLUME 96 fL (80-96); MONOCYTES # (AUTO) 0.6 /CMM (0.1-1.30); MONOCYTES % (AUTO) 2.2 % (2.0-12.0); NEUTROPHILS # (AUTO) 24.4 /CMM (1.8-8.9); NEUTROPHILS % (AUTO) 93.8 % (43.0-81.0); RED BLOOD CELL COUNT(AUTO) 2.85 MIL/uL (4.5-6.0)
[2020-12-02 05:42] LABS: PLATELET COUNT (AUTO) 82 /CMM (150-450)
[2020-12-02 05:53] LABS: CALCIUM, SERUM 8.5 mg/dL (8.5-10.1); CREATININE 0.7 mg/dL (0.6-1.3); MAGNESIUM 1.8 mg/dL (1.8-2.4); PHOSPHORUS 3.9 mg/dL (2.5-4.9); POTASSIUM 3.6 mmol/L (3.5-5.1)
[2020-12-02 06:13] LABS: BAND % (MANUAL) 5 % (0.0-5.0); EOSINOPHILS % (MANUAL) 1 % (0-4); LYMPHOCYTES % (MANUAL) 5 % (16-48); METAMYELOCYTES % 1 % (0-0); MONOCYTES % (MANUAL) 2 % (0-11.0); NEUTROPHILS % (MANUAL) 86 (42-76)
--- NOTE | 2020-12-02 07:20 | NUR ---
ICU OPENING NOTE RECEIVED PATIENT IN BED, INTUBATED AND SEDATED WITH PROPOFOL @30 MCG/KG/MIN. NEOSYNEPHRINE @2 MCG. ON VENT, TOLERATING SETTINGS WELL. TELE MONITOR ON, SR. WITH [facility] INTACT AND IN PLACE. OGT IN PLACE AND PLACEMENT VERIFIED. SAFETY MEASURES IMPLEMENTED. CALL LIGHT WITHIN REACH. BED LOCKED AND AT LOWEST POSITION. WILL CONTINUE TO MONITOR.
--- NOTE | 2020-12-02 07:40 | NUR ---
Patient remains sedated and neosynephrine gtt infusing.No acute distress noted. Patient for weaning today to SIMV mode.Report given to day shift RN for DEMIAN.
[2020-12-02] MEDS: ENSURE ENLIVE CHOC 237 ML CAN PO SCH ×3 (08:00→17:45)
[2020-12-02] MEDS: APIXABAN 5 MG TABLET PO SCH ×2 (09:00→16:59)
--- NOTE | 2020-12-02 09:00 | NUR ---
RN NOTES PLATELET COUNT OF 82. INFORMED DR GARCIA. ORDERED TO HOLD DOSE.
[2020-12-02] MEDS: GUAIFENESIN LA 600 MG TABLET.SA PO SCH ×2 (09:21→20:40)
[2020-12-02] MEDS: ASCORBIC ACID 500 MG TABLET PO SCH (09:21)
[2020-12-02] MEDS: ACIDOPHILUS/BULGARICUS 1 EACH TAB.CHEW PO SCH (09:21)
[2020-12-02] MEDS: Z GUARD REMEDY 2 OZ OINT TP SCH (09:26)
--- NOTE | 2020-12-02 09:30 | NUR ---
RN NOTES WEANING OFF UNSUCCESSFUL. PT BP DROPS TO 48/40. PT IN DISTRESS. DR HUNTER AWARE. CONTINUE SEDATION. WILL CONTINUE TO MONITOR
[2020-12-02] MEDS: DIGOXIN 0.125 MG TABLET PO SCH (14:29)
--- NOTE | 2020-12-02 19:00 | NUR ---
RN NOTE RECEIVED IN BED, SEDATED. PATIENT IN NO S/SX OF ACUTE DISTRESS AT THIS TIME. PATIENT'S BREATHING IS EVEN AND UNLABORED. PATIENT ON ET TUBE CONNECTED TO MECHANICAL VENT WITH SETTINGS PRESCRIBED. PATIENT SHOWING AFIB UNCONTROLLED ON BEDSIDE MONITOR, HR IS 121. NOTED [facility], PATENT AND FLUSHING WELL,NO S/S OF INFECTION WITH DIPRIVAN INFUSING AT 30 MCG, NEOSYNEPHRINE AT 3 MCG, AND NOREPINEPHRINE AT 0.1 MCG. NOTED OG TUBE INTACT, PLACEMENT WAS CHECKED BY AUSCULTATION AND ASPIRATION, MINIMAL RESIDUAL NOTED. AVERY CATHETER CONNECTED TO URINE BAG IN PLACE, DRAINING TO A CLEAR YELLOW OUTPUT. SAFETY MEASURES IMPLEMENTED PER PROTOCOL. PATIENT BED ALARM IS ON. HEAD OF BED ELEVATED. BED IS LOCKED, IN LOWEST POSITION AND SIDE RAILS UP. CALL LIGHT WITHIN REACH OF THE PATIENT. WILL CONTINUE TO MONITOR AND REASSESS FOR ANY CHANGES.
--- NOTE | 2020-12-02 20:15 | NUR ---
ICU CLOSING NOTE PATIENT IN BED, INTUBATED AND SEDATED WITH PROPOFOL @30 MCG/KG/MIN. NEOSYNEPHRINE @3 MCG. LEVOPHED @0.01. ON VENT, TOLERATING SETTINGS WELL. TELE MONITOR ON, ST. WITH [facility] INTACT AND IN PLACE. OGT IN PLACE AND PLACEMENT VERIFIED. SAFETY MEASURES IMPLEMENTED. CALL LIGHT WITHIN REACH. BED LOCKED AND AT LOWEST POSITION. WILL ENDORSE TO NIGHT NURSE FOR DEMIAN.
[2020-12-02] MEDS: ACETAMINOPHEN 325 MG TABLET PO PRN (20:40)
[2020-12-03] VITALS (84 sets, daily range): BP systolic 45–112; BP diastolic 34–75
[2020-12-03] MEDS: PHENYLEPHRINE 50 MG in IV NS 0.9% 245 ML IV PRN ×6 (00:41→14:37)
[2020-12-03] MEDS: PROPOFOL 100 ML IV PRN ×5 (01:49→18:24)
[2020-12-03 04:55] LABS: BASOPHILS # (AUTO) 0.1 /CMM (0.0-0.2); BASOPHILS % (AUTO) 0.4 % (0.0-2.0); EOSINOPHILS % (AUTO) 0.2 % (0.0-6.0); HEMATOCRIT 26 % (39-51); HEMOGLOBIN 8.1 g/dL (13.5-17.5); LYMPHOCYTES # (AUTO) 1.3 /CMM (0.8-4.8); MEAN CORPUSCULAR HGB CONC 32 g/dl (31.0-36.0); MEAN CORPUSCULAR VOLUME 96 fL (80-96); MONOCYTES # (AUTO) 0.6 /CMM (0.1-1.30); MONOCYTES % (AUTO) 2.9 % (2.0-12.0); NEUTROPHILS # (AUTO) 17.1 /CMM (1.8-8.9); NEUTROPHILS % (AUTO) 89.5 % (43.0-81.0); PLATELET COUNT (AUTO) 85 /CMM (150-450); RED BLOOD CELL COUNT(AUTO) 2.66 MIL/uL (4.5-6.0); WHITE BLOOD COUNT (AUTO) 19.1 K/uL (4.3-11.0)
[2020-12-03 04:59] LABS: CALCIUM, SERUM 8.2 mg/dL (8.5-10.1); CREATININE 1.1 mg/dL (0.6-1.3)
[2020-12-03 06:23] LABS: BAND % (MANUAL) 1 % (0.0-5.0); LYMPHOCYTES % (MANUAL) 6 % (16-48); METAMYELOCYTES % 2 % (0-0); MONOCYTES % (MANUAL) 3 % (0-11.0); MYELOCYTES % 3 % (0-0); NEUTROPHILS % (MANUAL) 85 (42-76)
[2020-12-03] MEDS: ENSURE ENLIVE CHOC 237 ML CAN PO SCH ×3 (08:00→16:58)
[2020-12-03] MEDS: IPRATROPIUM/ALBUTEROL INHALER IH SCH ×3 (08:28→19:30)
[2020-12-03] MEDS: Z GUARD REMEDY 2 OZ OINT TP SCH (08:44)
[2020-12-03] MEDS: ASCORBIC ACID 500 MG TABLET PO SCH (08:44)
[2020-12-03] MEDS: ACIDOPHILUS/BULGARICUS 1 EACH TAB.CHEW PO SCH (08:44)
[2020-12-03] MEDS: GUAIFENESIN LA 600 MG TABLET.SA PO SCH ×2 (08:44→20:36)
[2020-12-03] MEDS: APIXABAN 5 MG TABLET PO SCH ×2 (09:00→16:25)
[2020-12-03] MEDS: NOREPINEPHRINE 8 MG in IV NS 0.9% 242 ML IV PRN ×2 (09:58→15:01)
[2020-12-03 10:28] LABS: ABG BASE EXCESS -8.7 mmol/L; ABG OXYGEN SATURATION 89.8 % (92.0-98.5); ABG PCO2 27.8 mmHg (35.0-45.0); ABG PH 7.366 (7.350-7.450); ABG PO2 64.2 mmHg (75.0-100.0); COHb 0.6 % (0.5-1.5); MetHb 0.6 % (0.0-1.5); O2Hb 88.7 % (94.0-97.0); PEEP,BG 5 cm H2O; SITE, ABG Right Radial; VT, ABG 500 mL
[2020-12-03] MEDS ORDERED: VASOPRESSIN INJ 40 UNIT in IV NS 0.9% 38 ML IV PRN (10:30)
[2020-12-03] MEDS: DIGOXIN 0.125 MG TABLET PO SCH (12:20)
--- NOTE | 2020-12-03 13:00 | NUR ---
RN NOTES PT'S HR 140S-150S, A.FIB ON MONITOR. PT MAX PUT ON VASO AND JAIME. LEVO ON HOLD DUE TO HR. NOTIFIED DR THACKER. PER MD, INCREASED HD IS DUE TO RESPIRATORY STATUS. OK TO RESTART LEVOPHED. WILL CLOSELY MONITOR
[2020-12-03] MEDS: PHENYLEPHRINE 100 MG in IV NS 0.9% 240 ML IV PRN ×2 (16:57→22:23)
--- NOTE | 2020-12-03 18:45 | NUR ---
RN CLOSING NOTES PT REMAINS INTUBATED, ON VENT. STILL UNCONTROLLED A.FIB ON MONITOR. PT ON DIPRIVAN, LEVO, VASO AND JAIME DRIP. TITRATED ACCORDINGLY. KEPT COMFORTABLE. BLE ELEVATED. KIERRA;L ENDORSE FOR CONTINUITY OF CARE.
[2020-12-03] MEDS ORDERED: MEROPENEM 500 MG in IV NS 0.9% 50 ML IV SCH (19:00)
--- NOTE | 2020-12-03 19:00 | NUR ---
RN NOTE RECEIVED IN BED, SEDATED, ON [place] POSITION, SBP AT 70'S. PATIENT'S BREATHING IS EVEN AND UNLABORED. PATIENT ON ET TUBE CONNECTED TO MECHANICAL VENT WITH SETTINGS PRESCRIBED, FIO2 AT 100%. PATIENT SHOWING AFIB UNCONTROLLED ON BEDSIDE MONITOR, HR IS AT 150'S-160'S. NOTED [facility], PATENT AND FLUSHING WELL, NO S/S OF INFECTION WITH DIPRIVAN INFUSING AT 140 MCG, NEOSYNEPHRINE AT 3 MCG, PITRESSIN AT 0.04 AND NOREPINEPHRINE AT 0.1 MCG. NOTED OG TUBE INTACT, PLACEMENT WAS CHECKED BY AUSCULTATION AND ASPIRATION, MINIMAL RESIDUAL NOTED. AVERY CATHETER CONNECTED TO URINE BAG IN PLACE, DRAINING TO A CLEAR YELLOW OUTPUT. HR AND BP REMAINS UNSTABLE DESPITE THREE PRESSORS, CLERICAL CAR CHECKER MADE AWARE. SAFETY MEASURES IMPLEMENTED PER PROTOCOL. PATIENT BED ALARM IS ON. HEAD OF BED ELEVATED. BED IS LOCKED, IN LOWEST POSITION AND SIDE RAILS UP. CALL LIGHT WITHIN REACH OF THE PATIENT. WILL CONTINUE TO MONITOR AND REASSESS FOR ANY CHANGES.
--- NOTE | 2020-12-03 19:40 | NUR ---
RN NOTE LOG FEEDER SPOKE TO PATIENT'S FAMILY REGARDING CURRENT PATIENT STATUS. FAMILY AMENABLE TO CHANGE CODE STATUS TO DO NOT RESUSCITATE, WITNESSED BY PRIMARY RN. TECHNICAL PROPOSAL WRITER MD WAS NOTIFIED.
--- NOTE | 2020-12-03 20:00 | NUR ---
RN NOTE NOTED TEMP 102.6 TAKEN VIA ORAL ROUTE. COOLING MEASURES PROVIDED. PRN ACETAMINOPHEN 650 MG ADMINISTERED ORDERED. WILL CONT TO MONITOR.
[2020-12-03] MEDS: ACETAMINOPHEN 325 MG TABLET PO PRN (20:36)
[2020-12-04] MEDS ORDERED: NOREPINEPHRINE 4 MG/4 ML AMPUL IV ONE (00:05)
--- NOTE | 2020-12-04 01:12 | NUR ---
RN NOTE PATIENT WENT INTO CARDIOPULMONARY ARREST. PRONOUNCED BY LENS INSERTER AT 0112. ADMITTING NOTIFIED AT 0125, AND DIRECTOR DIETETICS DEPARTMENT NOTIFIED AT 0119. MARK WELLS (BROTHER) WAS MADE AWARE OF PATIENT'S AT 0210. TELEPHONE CALL TO [facility] AT 0210. ADVISED OF PATIENT AND DIAGNOSIS. SPOKE WITH EUGENIA, STATED WILL NOT PROCEED FURTHER PATIENT IS COVID 19 POSITIVE.
--- NOTE | 2020-12-04 02:10 | NUR ---
RN NOTE POST MORTEM CARE WAS PERFORMED. OG TUBE, INDWELLING URINARY CATHETER AND IV ACCESS DEVICE WERE ALL REMOVED AND DRESSING APPLIED. BODY WAS PLACED IN 2 BODY BAGS WITH PROPER IDENTIFICATION TAG. NO BELONGINGS AT BEDSIDE. BODY WAS TRANSFERRED TO [facility] AT 0210 BY 2 SECURITY PERSONNEL.
== END 2020-12-04 01:12 | disposition expired | DRG 870 ==
LOC: ER 21:20 → OBSVTOIN 11-20 02:04 → TRANSITION 11-20 02:04 → TELE2 11-22 01:37 → ICU 11-24 08:09
PROVIDERS: ADMIT Nurse Practitioner Acute Care; ATTEND Internal Medicine
PROC: XW13325 Transfusion of Convalescent Plasma (Nonautologous) into Peripheral Vein, Percutaneous Approach, New Technology Group 5 (ICD-10-PCS; 2020-11-20)
PROC: XW033E5 Introduction of Remdesivir Anti-infective into Peripheral Vein, Percutaneous Approach, New Technology Group 5 (ICD-10-PCS; 2020-11-23)
PROC: 05H933Z Insertion of Infusion Device into Right Brachial Vein, Percutaneous Approach (ICD-10-PCS; 2020-11-23)
PROC: 5A1955Z Respiratory Ventilation, Greater than 96 Consecutive Hours (ICD-10-PCS; principal; 2020-11-24)
PROC: 0BH17EZ Insertion of Endotracheal Airway into Trachea, Via Natural or Artificial Opening (ICD-10-PCS; 2020-11-24)
PROC: 05HY33Z Insertion of Infusion Device into Upper Vein, Percutaneous Approach (ICD-10-PCS; 2020-12-03)
DX: A41.89 Other specified sepsis (principal); U07.1 COVID-19; J96.01 Acute respiratory failure with hypoxia; I50.33 Acute on chronic diastolic (congestive) heart failure; J12.82 Pneumonia due to coronavirus disease 2019; N17.0 Acute kidney failure with tubular necrosis; J96.02 Acute respiratory failure with hypercapnia; R65.21 Severe sepsis with septic shock; E43 Unspecified severe protein-calorie malnutrition; K72.00 Acute and subacute hepatic failure without coma; J15.9 Unspecified bacterial pneumonia; J44.0 Chronic obstructive pulmonary disease with (acute) lower respiratory infection; E44.0 Moderate protein-calorie malnutrition; I13.0 Hypertensive heart and chronic kidney disease with heart failure and stage 1 through stage 4 chronic kidney disease, or unspecified chronic kidney disease; C79.9 Secondary malignant neoplasm of unspecified site; E22.2 Syndrome of inappropriate secretion of antidiuretic hormone; N39.0 Urinary tract infection, site not specified; J98.11 Atelectasis; Z66 Do not resuscitate; Z51.5 Encounter for palliative care; Z79.01 Long term (current) use of anticoagulants; Z85.118 Personal history of other malignant neoplasm of bronchus and lung; Z87.891 Personal history of nicotine dependence; I48.91 Unspecified atrial fibrillation; Z88.8 Allergy status to other drugs, medicaments and biological substances; Z79.51 Long term (current) use of inhaled steroids; E87.5 Hyperkalemia; Z79.899 Other long term (current) drug therapy; N18.9 Chronic kidney disease, unspecified; I25.10 Atherosclerotic heart disease of native coronary artery without angina pectoris; D63.8 Anemia in other chronic diseases classified elsewhere; D69.6 Thrombocytopenia, unspecified; B95.2 Enterococcus as the cause of diseases classified elsewhere; E87.6 Hypokalemia
CPT/HCPCS: 31720; 36410; 36415; 36600; 71045-TC; 80048-TC; 80053-TC; 80076-TC; 80162-TC; 81001; 82550-TC; 82728-TC; 82803-TC; 83605-TC; 83615-TC; 83735-TC; 83880; 84100-TC; 84484-TC; 85025-TC; 85378-TC; 85610-TC; 85730-TC; 86140-TC; 86850-TC; 87040-TC; 87081-TC; 87086-TC; 94002-TC; 94003-TC; 94760-TC; 94799-TC; A4216; A4217; C9803; G0378; J0330; J0692; J1100; J1120; J2060; J2185; J2370; J2405; J2543; J3370; J3475; J3480; J3490; J7040; J7050; J7060; P9017-BL; U0003